=== PATIENT | female | born 1945 | race African-American/Black ===

== ENCOUNTER 2017-01-21 15:00 | Inpatient (IN) | payer MEDICARE ==
[2017-01-21] VITALS (9 sets, daily range): BP systolic 118–137; BP diastolic 62–73
[~2017-01-21] VITALS: Ht 167.6 cm; Wt 69.5 kg
[~2017-01-21 15:00] MED LIST: AMLO10TA4 PO; BIOT10TA PO; MULT-245 PO; OXYC-323 PO; PROAIR RESPICL90 MCG IH; VIT1TABL2 PO
[2017-01-21 15:37] LABS: BASO % 1 % (0-3); EOS % 1 % (0-3); LYMPH # 1.9 x10^3/uL (1.0-4.8); LYMPH % 33 % (24-48); MEAN CORPUSCULAR HEMOGLOBIN 32 pg (25-35); MEAN CORPUSCULAR HGB CONC 33 g/dL (31-37); MEAN CORPUSCULAR VOLUME 99 fL (79-100); MONO % 6 % (0-9); NEUT % 60 % (31-73); PLATELET COUNT 333 x10^3/uL (140-400); RED CELL DISTRIBUTION WIDTH 18.9 % (11.5-14.5); WHITE BLOOD COUNT 5.8 x10^3/uL (4.0-11.0)
[2017-01-21 15:40] LABS: HEMATOCRIT 17.9 % (36.0-47.0); HEMOGLOBIN 5.8 g/dL (12.0-15.5)
[2017-01-21 15:45] LABS: PROTHROMBIN TIME PATIENT 12.7 SEC (11.7-14.0)
[2017-01-21 15:47] LABS: CREATININE 0.9 mg/dL (0.6-1.0); GFR 74.7
[2017-01-21 15:52] LABS: ALBUMIN 3.1 g/dL (3.4-5.0); ALBUMIN/GLOBULIN RATIO 1.1 (1.0-1.7); MAGNESIUM 1.9 mg/dL (1.8-2.4); TOTAL BILIRUBIN 0.2 mg/dL (0.2-1.0)
[2017-01-21 16:00] LABS: CKMB MASS < 0.5 ng/mL (0.0-3.6); CREATINE KINASE 58 U/L (26-192)
--- NOTE | 2017-01-21 16:01 | PHYS DOC ---
Past Medical History Past Medical History: COPD, Hypertension, Other Additional Past Medical Histor: Brain aneurysm Past Surgical History: Other Additional Past Surgical Histo: intestinal polyp,Brain aneurysm Additional Information: 50 YEAR SMOKER, QUIT OCT 2016 Alcohol Use: None Drug Use: None Adult General Chief Complaint Chief Complaint: SHORTNESS OF BREATH HPI HPI Patient is a 71 year old female with a history of COPD who presents complaining of worsening shortness of breath for about 3-4 weeks. Today "I can' t even walk across the room".. Patient has to stop to catch her breath. Sometimes it wakes her up at night short of breath. Patient denies chest pain but she states her chest feels like a tight rubber band is around it when she gets short of air. She does not have chest pain without shortness of air. She denies diaphoresis. Patient states that since at least she has been having dark black stools. Her stools have been just about one a day. She's never had red or maroon stools, only black. She has no history of GI bleed. She has not vomited. She's never had black stools before. Patient does take Plavix 75 mg and aspirin 325 mg every day. She took both this morning. She has been taking those since she had "aneurysm surgery" at in September. She describes a procedure where they went in through her groin and did some procedure to an aneurysm in her brain that she states was the size of a plum. She states it was not ruptured. Patient has no history of CVA or cardiac history. She also takes Norvasc 10 mg daily for hypertension. Patient has had colonoscopy and she believe she had polyps but no upper endoscopy. She took prednisone for about a month after her aneurysm procedure, has been to that for maybe a couple of months now. Pt has not been on oxygen. She does use an inhaler for COPD and she has taken that about 3 or 4 times today. It is not really helping. PCP Dr. Lemus Review of Systems Review of Systems Constitutional: Denies fever or chills [] HENT: Denies nasal congestion or sore throat [] Respiratory: As in history of present illness Cardiovascular: As in history of present illness GI: As in history of present illness : Denies dysuria or hematuria [] Musculoskeletal: Denies back pain or joint pain [] Integument: Denies rash or skin lesions [] Neurologic: Denies headache, focal weakness or sensory changes [] Current Medications Current Medications Current Medications Medications (Trade) Dose Ordered Sig/Ana Start Time Stop Time Status Last Admin Dose Admin Pantoprazole Sodium (PROTONIX VIAL for IV PUSH) 40 mg 1X ONCE 01/21/17 16:15 01/21/17 16:16 DC 01/21/17 16:18 40 MG Allergies Allergies Allergies Coded Allergies Type Severity Reaction Last Updated Verified YVONNE Inhibitors Allergy Severe angioedema "my tongue swells" 01/21/16 Yes doxycycline Allergy Intermediate n/v 01/21/16 Yes sulfamethoxazole Allergy Intermediate n/v 01/21/16 Yes trimethoprim Allergy Intermediate n/v 01/21/16 Yes Physical Exam Physical Exam Constitutional: Well developed, well nourished, no acute distress, non-toxic appearance. Alert, mentating normally, warm and dry. Pulse ox on room air 97-99% . Noted. HENT: Normocephalic, atraumatic, bilateral external ears normal, nose normal. [ ] Eyes: conjunctivae very pale, no discharge. [] Neck: Normal range of motion, no stridor. [] Cardiovascular:Heart rate regular rhythm, no murmur [] Lungs & Thorax: Bilateral breath sounds clear to auscultation , no wheezes, mildly prolonged expiratory phase, mild to moderate decrease in breath sounds throughout Abdomen: Bowel sounds normal, soft, no tenderness, no masses, no pulsatile masses. [] Rectal exam: Small amount of black stool present, no mass Skin: Warm, dry, no erythema, no rash. [] Extremities: No tenderness, no cyanosis, no clubbing, ROM intact, no edema. [] Neurologic: Alert and oriented X 3, normal motor function, no focal deficits noted. [] Current Patient Data Vital Signs Vital Signs Date Time Temp Pulse Resp B/P (MAP) Pulse Ox O2 Delivery O2 Flow Rate FiO2 01/21/17 16:19 77 20 124/77 (93) 98 Room Air 01/21/17 15:16 97.7 97.7 Lab Values Laboratory Tests Test 01/21/17 15:20 01/21/17 15:36 White Blood Count 5.8 x10^3/uL (4.0-11.0) Red Blood Count 1.80 x10^6/uL (3.50-5.40) L Hemoglobin 5.8 g/dL (12.0-15.5) *L Hematocrit 17.9 % (36.0-47.0) *L Mean Corpuscular Volume 99 fL (79-100) Mean Corpuscular Hemoglobin 32 pg (25-35) Mean Corpuscular Hemoglobin Concent 33 g/dL (31-37) Red Cell Distribution Width 18.9 % (11.5-14.5) H Platelet Count 333 x10^3/uL (140-400) Neutrophils (%) (Auto) 60 % (31-73) Lymphocytes (%) (Auto) 33 % (24-48) Monocytes (%) (Auto) 6 % (0-9) Eosinophils (%) (Auto) 1 % (0-3) Basophils (%) (Auto) 1 % (0-3) Neutrophils # (Auto) 3.5 x10^3uL (1.8-7.7) Lymphocytes # (Auto) 1.9 x10^3/uL (1.0-4.8) Monocytes # (Auto) 0.4 x10^3/uL (0.0-1.1) Eosinophils # (Auto) 0.1 x10^3/uL (0.0-0.7) Basophils # (Auto) 0.0 x10^3/uL (0.0-0.2) Prothrombin Time 12.7 SEC (11.7-14.0) Prothrombin Time INR 1.0 (0.8-1.1) PTT 27 SEC (24-38) Sodium Level 146 mmol/L (136-145) H Potassium Level 3.0 mmol/L (3.5-5.1) L Chloride Level 109 mmol/L (98-107) H Carbon Dioxide Level 27 mmol/L (21-32) Anion Gap 10 (6-14) Blood Urea Nitrogen 18 mg/dL (7-20) Creatinine 0.9 mg/dL (0.6-1.0) Estimated GFR (Cockcroft-Gault) 74.7 BUN/Creatinine Ratio 20 (6-20) Glucose Level 103 mg/dL (70-99) H Calcium Level 9.0 mg/dL (8.5-10.1) Magnesium Level 1.9 mg/dL (1.8-2.4) Total Bilirubin 0.2 mg/dL (0.2-1.0) Aspartate Amino Transferase (AST) 17 U/L (15-37) Alanine Aminotransferase (ALT) 22 U/L (14-59) Alkaline Phosphatase 65 U/L (46-116) Creatine Kinase 58 U/L (26-192) Creatine Kinase MB (Mass) < 0.5 ng/mL (0.0-3.6) Creatine Kinase MB Relative Index 0.9 % (0-4) Troponin I Quantitative < 0.017 ng/mL (0.000-0.055) [id number]-Type Natriuretic Peptide 149 pg/mL (0-124) H Total Protein 6.0 g/dL (6.4-8.2) L Albumin 3.1 g/dL (3.4-5.0) L Albumin/Globulin Ratio 1.1 (1.0-1.7) Stool Occult Blood Positive (NEG) Laboratory Tests 01/21/17 15:20 Laboratory Tests 01/21/17 15:20 EKG EKG 12-lead EKG read by me. Sinus rhythm. Heart rate 80. There are no acute ST or T wave changes indicative of ischemia or infarction. No STEMI. 1512[] Radiology/Procedures Radiology/Procedures [] Course & Med Decision Making Course & Med Decision Making Pertinent Labs and Imaging studies reviewed. (See chart for details) 71-year-old female presents with the complaint of shortness of air worsening for 3 or 4 weeks. On evaluation, she is very pale and has a black stool. I believe may be her symptoms are being caused by anemia. In fact, lab called with hemoglobin of 5.8. The patient is stable at this time but I do believe she has evidence of active GI bleeding and that she is having daily black stools. I consented the patient to blood transfusion. I discussed with the blood bank. We will give her 2 units of packed red blood cells. She has never had a blood transfusion before. Patient's potassium is a little low but will probably come up with blood transfusion, I did not specifically give her potassium. Discussed the case with Dr. Madden, cooperative education director for hospital medicine. She will admit the patient. She stated that she will write for a GI consult. I did start the patient on IV PPI. I wrote bridge orders. Critical care time 35 minutes including bedside evaluation and reevaluation, consent for and administration of blood transfusion in a critically anemic patient, evaluation of labs, documentation, writing orders, discussion of the case with Hospital specialist to his admitting and with the patient and her family. [] Dragon Disclaimer Dragon Disclaimer This electronic medical record was generated, in whole or in part, using a voice recognition dictation system. Departure Departure Impression: Primary Impression: GI bleed Additional Impression: Anemia Disposition: 09 ADMITTED INPATIENT Admitting Physician: Other Condition: STABLE Referrals: HA LEMUS MD (PCP) Problem Qualifiers MICHELLE HAZEL MD Jan 21, 2017 16:01
[2017-01-21 16:10] LABS: NEG OBC FOB NEG; POS OBC FOB POS
--- NOTE | 2017-01-21 16:12 | RAD ---
PORTABLE CHEST 1V Clinical Indication: soa Comparison: October 31, 2015 Technique: Frontal view of the chest is obtained. Findings: No focal consolidation, pleural effusion, or pneumothorax is seen. Cardiomediastinal silhouette remains within normal limits of size. Visualized osseous structures and overlying soft tissues demonstrate no acute interval change. IMPRESSION: No focal consolidation or acute radiographic finding seen.
[2017-01-21] MEDS ORDERED: PANTOPRAZOLE IV PUSH 40 MG VIAL. IVP ONE (16:15)
[2017-01-21] MEDS ORDERED: CLOP75TA PO (20:26)
[2017-01-21] MEDS ORDERED: ASPI325T8 PO (20:27)
[2017-01-21 21:03] LABS: HEMATOCRIT 20.3 % (36.0-47.0); HEMOGLOBIN 6.6 g/dL (12.0-15.5)
[2017-01-21] MEDS ORDERED: PROAIR HFA8.5 GM INH (22:44)
[2017-01-21] MEDS ORDERED: NON FORMULARY ITEM (Albuterol Sulfate (Proair Hfa Inhaler) 1 PUFF) INH PRN (23:15)
[2017-01-21 23:57] LABS: % SAT IRON 12 % (15-34); IRON,SERUM 29 ug/dL (50-170)
[2017-01-22] VITALS (7 sets, daily range): BP systolic 107–148; BP diastolic 55–86
--- NOTE | 2017-01-22 00:06 | HP ---
ADMIT DATE: 01/21/2017 CHIEF COMPLAINT: Shortness of breath. HISTORY OF PRESENT ILLNESS: The patient is a 71-year-old ex-smoker who presented to the Emergency Room with increased shortness of breath. She relates that this started about 3 weeks ago and got progressively worse. She had been taking increasing frequency of her rescue albuterol, which seemed to help her symptoms some. However, she in addition to being very short of breath complained of fatigue, having no energy and she had noticed dark stools over the past couple of weeks, dark brown to black even. Denies ever having any GI bleeds in the past. She is status post polyp resection about 11 years ago, has not had an endoscopy since. Of note, she had a cranial aneurysm coiled in September of this year and has been on aspirin and Plavix since with the hanson warning to never miss a day of her medication. In the Emergency Room, she was found with a hemoglobin of 5.8 and is now admitted for further treatment and workup. PAST MEDICAL HISTORY: COPD, hypertension, intracranial aneurysm, status post repair in September. FAMILY HISTORY: No other family members with brain aneurysms. No history of intestinal disorders including cancers. SOCIAL HISTORY: Lives with her . Quit smoking in October of this year after accumulating 50 pack-year history. Denies any alcohol or drug use. ALLERGIES: YVONNE INHIBITORS CAUSING ANGIOEDEMA, DOXYCYCLINE CAUSING NAUSEA, BACTRIM. MEDICATIONS: MAR reconciled with home medications. REVIEW OF SYSTEMS: Positive as per HPI. The patient specifically denies any nausea, abdominal pain, chest pain or palpitations. Rest of organ system review likewise is answered negatively. PHYSICAL EXAMINATION: VITAL SIGNS: Show a blood pressure of 118/62, heart rate of 76, respiratory rate at 20, she is afebrile. GENERAL: This is a well-nourished, well-developed 71-year-old woman, alert and oriented, in no acute distress. HEENT: Shows no scleral icterus. NECK: Supple. LUNGS: Clear. HEART: Has regular rate and rhythm. ABDOMEN: Has positive bowel sounds, soft, nontender, without any organomegaly or masses. EXTREMITIES: Show no edema. SKIN: Warm, soft and dry without any rash. LABORATORY DATA: CBC with a WBC of 5.8, hemoglobin 5.8, platelets of 333. Chemistries with a BUN and creatinine of 18 and 0.9, sodium 146, potassium 3.0. Troponin is negative. Albumin at 2.1. OB stool is positive. IMAGING: Chest x-ray: No focal consolidation. ASSESSMENT AND PLAN: The patient is a 71-year-old woman with chronic obstructive pulmonary disease presenting with shortness of breath most likely secondary to severe anemia. By her history of melena, source is more than likely her gastrointestinal tract. For tonight, I will transfuse her with packed red blood cell for symptomatic anemia. Gastroenterology consult will be obtained in the morning. Discussed with her that workup may be a little tricky given the requirement for ongoing aspirin and Plavix. We will try and contact her neurologist, Dr. Portillo, at in the morning to evaluate the strict necessity of dual anticoagulation in face of gastrointestinal bleed. We will obtain iron studies as well. Her MCV is actually rather on the large side, obtain B12 and folate as well. If need be, she can receive p.o. versus intravenous iron repletion. For her hypertension, home medications will be continued as she appears very well compensated at this time. Other home medications will continue as well. ERON BATISTA MD DR: STEPHON/nts JOB#: [id number] / [id number] HA Enciso MD
[2017-01-22 04:38] LABS: BASO % 1 % (0-3); EOS % 1 % (0-3); HEMATOCRIT 25.1 % (36.0-47.0); HEMOGLOBIN 8.1 g/dL (12.0-15.5); LYMPH # 1.5 x10^3/uL (1.0-4.8); LYMPH % 32 % (24-48); MEAN CORPUSCULAR HEMOGLOBIN 30 pg (25-35); MEAN CORPUSCULAR HGB CONC 32 g/dL (31-37); MEAN CORPUSCULAR VOLUME 94 fL (79-100); MONO % 7 % (0-9); NEUT % 59 % (31-73); PLATELET COUNT 286 x10^3/uL (140-400); RED BLOOD COUNT 2.67 x10^6/uL (3.50-5.40); RED CELL DISTRIBUTION WIDTH 18.1 % (11.5-14.5); WHITE BLOOD COUNT 4.8 x10^3/uL (4.0-11.0)
[2017-01-22 05:15] LABS: CALCIUM 7.9 mg/dL (8.5-10.1); CREATININE 0.7 mg/dL (0.6-1.0); GFR 99.8; POTASSIUM 3.1 mmol/L (3.5-5.1)
--- NOTE | 2017-01-22 06:23 | EKG ---
[facility] [address] [place] [address] Test Date: 2017-01-21 Test Time: 15:12:33 Pat Name: KAMLA BABCOCK Department: Room: Gender: F Director Regulatory Affairs: : 1945 Requested By: MICHELLE HAZEL Order Number: [id number] Reading MD: Measurements Intervals [place] Rate: 80 P: 74 UT: 184 QRS: 60 QRSD: 72 T: 62 QT: 384 QTc: 447 Interpretive Statements SINUS RHYTHM NORMAL ECG RI6.01 No previous ECG available for comparison
[2017-01-22] MEDS: ASPIRIN 325 MG TABLET PO SCH ×2 (09:00→12:25)
[2017-01-22] MEDS: CLOPIDOGREL BISULFATE 75 MG TABLET PO SCH ×2 (09:00→12:26)
[2017-01-22] MEDS: amLODIPine BESYLATE 10 MG TABLET PO SCH ×2 (09:00→12:26)
[2017-01-22 10:24] LABS: FOLATE 7.8 ng/ml (3.2-20.0)
[2017-01-22] MEDS ORDERED: guaiFENesin DM 200MG/20MG 10 ML SYRUP PO PRN (11:00)
--- NOTE | 2017-01-22 11:49 | PDOC2 ---
GI CONSULT Reason For Consult: Dark stools, GIB HPI: HPI: 71 y/o female who came to the ER w/ increasing SOA since around . Noted w/ GARY w/ Hgb 5.8, now improved to 8.1 s/p transfusion (2 units pRBCs). For comparison, Hgb was 12-13 range in 10/2015. BUN is WNL (12). Has noted dark stools (says formed, once daily, but also "sticky") x 1 week. H/o cranial aneurysm s/p coiling in 09/2016, has been on ASA and Plavix since. Occasional NSAID use. No previous EGD. H/o colon resection for polyps x 15 years ago, no colonoscopy since. Mentions h/o diverticulosis. FH of pancreatic cancer; Dr. Caceres has seen previously for dilated pancreatic duct w/ borderline CBD and she has also undergone workup @ [facility] for same. Note normal CA19-9 in 2012. No h/ o anemia. No n/v, reflux/heartburn, dysphagia, abd pain, weight loss or change in appetite , diarrhea, or constipation. On IV PPI. PMH: PMH: HTN, COPD, colon polyps, diverticulosis, anxiety, depression, cranial aneurysm coiling, excision of chest lipoma, colon resection FH: Family History: Cancer (sister - pancreatic) Social History: Smoke: Quit ALCOHOL: none Drugs: None ROS: GEN: Denies fevers, chills, sweats HEENT: Denies blurred vision, sore throat CV: Denies chest pain RESP: +SOA GI: Per HPI : Denies hematuria, dysuria ENDO: Denies weight changes NEURO: Denies confusion, dizziness MSK: Denies weakness, joint pain/swelling SKIN: Denies jaundice, pruritus Vitals: Vitals: Vital Signs Date Time Temp Pulse Resp B/P (MAP) Pulse Ox O2 Delivery O2 Flow Rate FiO2 01/22/17 07:00 98.3 74 18 133/77 (95) 100 Room Air 98.3 01/21/17 20:11 2.0 Labs: Labs: Laboratory Tests Test 01/21/17 15:20 01/21/17 15:36 01/21/17 20:35 01/22/17 04:00 White Blood Count 5.8 x10^3/uL (4.0-11.0) 4.8 x10^3/uL (4.0-11.0) Red Blood Count 1.80 x10^6/uL (3.50-5.40) 2.67 x10^6/uL (3.50-5.40) Hemoglobin 5.8 g/dL (12.0-15.5) 6.6 g/dL (12.0-15.5) 8.1 g/dL (12.0-15.5) Hematocrit 17.9 % (36.0-47.0) 20.3 % (36.0-47.0) 25.1 % (36.0-47.0) Mean Corpuscular Volume 99 fL (79-100) 94 fL (79-100) Mean Corpuscular Hemoglobin 32 pg (25-35) 30 pg (25-35) Mean Corpuscular Hemoglobin Concent 33 g/dL (31-37) 32 g/dL (31-37) 32 g/dL (31-37) Red Cell Distribution Width 18.9 % (11.5-14.5) 18.1 % (11.5-14.5) Platelet Count 333 x10^3/uL (140-400) 286 x10^3/uL (140-400) Neutrophils (%) (Auto) 60 % (31-73) 59 % (31-73) Lymphocytes (%) (Auto) 33 % (24-48) 32 % (24-48) Monocytes (%) (Auto) 6 % (0-9) 7 % (0-9) Eosinophils (%) (Auto) 1 % (0-3) 1 % (0-3) Basophils (%) (Auto) 1 % (0-3) 1 % (0-3) Neutrophils # (Auto) 3.5 x10^3uL (1.8-7.7) 2.8 x10^3uL (1.8-7.7) Lymphocytes # (Auto) 1.9 x10^3/uL (1.0-4.8) 1.5 x10^3/uL (1.0-4.8) Monocytes # (Auto) 0.4 x10^3/uL (0.0-1.1) 0.3 x10^3/uL (0.0-1.1) Eosinophils # (Auto) 0.1 x10^3/uL (0.0-0.7) 0.1 x10^3/uL (0.0-0.7) Basophils # (Auto) 0.0 x10^3/uL (0.0-0.2) 0.0 x10^3/uL (0.0-0.2) Prothrombin Time 12.7 SEC (11.7-14.0) Prothromb Time International Ratio 1.0 (0.8-1.1) Activated Partial Thromboplast Time 27 SEC (24-38) Sodium Level 146 mmol/L (136-145) 144 mmol/L (136-145) Potassium Level 3.0 mmol/L (3.5-5.1) 3.1 mmol/L (3.5-5.1) Chloride Level 109 mmol/L (98-107) 110 mmol/L (98-107) Carbon Dioxide Level 27 mmol/L (21-32) 27 mmol/L (21-32) Anion Gap 10 (6-14) 7 (6-14) Blood Urea Nitrogen 18 mg/dL (7-20) 12 mg/dL (7-20) Creatinine 0.9 mg/dL (0.6-1.0) 0.7 mg/dL (0.6-1.0) Estimated GFR (Cockcroft-Gault) 74.7 99.8 BUN/Creatinine Ratio 20 (6-20) Glucose Level 103 mg/dL (70-99) 95 mg/dL (70-99) Calcium Level 9.0 mg/dL (8.5-10.1) 7.9 mg/dL (8.5-10.1) Magnesium Level 1.9 mg/dL (1.8-2.4) Iron Level 29 ug/dL (50-170) Total Iron Binding Capacity 251 ug/dL (250-450) Iron Saturation 12 % (15-34) Ferritin 25 ng/mL (8-252) Total Bilirubin 0.2 mg/dL (0.2-1.0) Aspartate Amino Transf (AST/SGOT) 17 U/L (15-37) Alanine Aminotransferase (ALT/SGPT) 22 U/L (14-59) Alkaline Phosphatase 65 U/L (46-116) Creatine Kinase 58 U/L (26-192) Creatine Kinase MB (Mass) < 0.5 ng/mL (0.0-3.6) Creatine Kinase MB Relative Index 0.9 % (0-4) Troponin I Quantitative < 0.017 ng/mL (0.000-0.055) [id number]-Type Natriuretic Peptide 149 pg/mL (0-124) Total Protein 6.0 g/dL (6.4-8.2) Albumin 3.1 g/dL (3.4-5.0) Albumin/Globulin Ratio 1.1 (1.0-1.7) Vitamin B12 Level 357 pg/mL (247-911) Serum Folate 7.80 ng/ml (3.2-20.0) Stool Occult Blood Positive (NEG) Allergies: Coded Allergies: YVONNE Inhibitors (Verified Allergy, Severe, angioedema "my tongue swells", 01/21/16) doxycycline (Verified Allergy, Intermediate, n/v, 01/21/16) sulfamethoxazole (Verified Allergy, Intermediate, n/v, 01/21/16) trimethoprim (Verified Allergy, Intermediate, n/v, 01/21/16) Medications: Current Medications Medications (Trade) Dose Ordered Sig/Ana Route PRN Reason Start Time Stop Time Status Last Admin Dose Admin Pantoprazole Sodium (PROTONIX VIAL for IV PUSH) 40 mg 1X ONCE IVP 01/21/17 16:15 01/21/17 16:16 DC 01/21/17 16:18 Imaging: Imaging: CXR IMPRESSION: No focal consolidation or acute radiographic finding seen. PE: GEN: NAD, quite pleasant HEENT: Atraumatic, PERRL LUNGS: CTAB HEART: RRR ABD: NABS, S/ND/NT EXTREMITY: No edema SKIN: No rashes, no jaundice NEURO/PSYCH: A & O 3 A/P: A/P: GARY, hemoccult positive/dark stools -Hgb 5.8 to 8.1 s/p transfusion -B12 and folate WNL -no previous EGD S/p aneurysm coiling on Plavix and ASA SOA CRC screen, h/o polyps s/p colon resection -no colonoscopy x 15 years FH pancreatic cancer -previous workup @ [facility] for abnormal imaging, normal CA19-9 here in 2012 -- D/w Dr. Caceres - with stable vitals and normal BUN, okay for PO today, plan for EGD tomorrow r/o upper GI source of anemia. Also needs colonoscopy, could be done as outpt. Continue PPI. SAKINA ORTIZ Jan 22, 2017 11:49
[2017-01-22] MEDS: PANTOPRAZOLE IV PUSH 40 MG VIAL. IVP SCH (12:28)
--- NOTE | 2017-01-22 13:35 | PDOC ---
PROGRESS NOTES Chief Complaint Chief Complaint Melena Asthma exacerbation resolved Anemia of chronic disease Never smoker hypokalemia Positive stool occult History of intracranial aneurysm October 08 on aspirin and Plavix osteoarthritis on as needed NSAIDs History of Present Illness History of Present Illness Doing okay. Melena was noted So I consulted GI. GI has seen the patient and spent for EGD tomorrow. Patient is on aspirin and Plavix is September 2016 after having history of intracranial coils done by neurosurgeon or neuro IR in . Hemodynamically stable hemoglobin 8 Plan of care: Nothing by mouth post midnight for EGD tomorrow H&H tomorrow Start PPI Hold aspirin and NSAIDs for now discussed with her by plan of care increase. Vitals Vitals Vital Signs Date Time Temp Pulse Resp B/P (MAP) Pulse Ox O2 Delivery O2 Flow Rate FiO2 01/22/17 12:26 96 Room Air 01/22/17 12: 78 144/83 01/22/17 11:00 98.4 18 98.4 01/21/17 20:11 2.0 Physical Exam General: Alert, Oriented X3, Cooperative Heart: Regular rate, Normal S1, Normal S2 Lungs: Clear Abdomen: Normal bowel sounds, Soft Extremities: No clubbing, No cyanosis Skin: No rashes, No breakdown Labs LABS Laboratory Tests Test 01/21/17 15:20 01/21/17 15:36 01/21/17 20:35 01/22/17 04:00 White Blood Count 5.8 x10^3/uL (4.0-11.0) 4.8 x10^3/uL (4.0-11.0) Red Blood Count 1.80 x10^6/uL (3.50-5.40) 2.67 x10^6/uL (3.50-5.40) Hemoglobin 5.8 g/dL (12.0-15.5) 6.6 g/dL (12.0-15.5) 8.1 g/dL (12.0-15.5) Hematocrit 17.9 % (36.0-47.0) 20.3 % (36.0-47.0) 25.1 % (36.0-47.0) Mean Corpuscular Volume 99 fL (79-100) 94 fL (79-100) Mean Corpuscular Hemoglobin 32 pg (25-35) 30 pg (25-35) Mean Corpuscular Hemoglobin Concent 33 g/dL (31-37) 32 g/dL (31-37) 32 g/dL (31-37) Red Cell Distribution Width 18.9 % (11.5-14.5) 18.1 % (11.5-14.5) Platelet Count 333 x10^3/uL (140-400) 286 x10^3/uL (140-400) Neutrophils (%) (Auto) 60 % (31-73) 59 % (31-73) Lymphocytes (%) (Auto) 33 % (24-48) 32 % (24-48) Monocytes (%) (Auto) 6 % (0-9) 7 % (0-9) Eosinophils (%) (Auto) 1 % (0-3) 1 % (0-3) Basophils (%) (Auto) 1 % (0-3) 1 % (0-3) Neutrophils # (Auto) 3.5 x10^3uL (1.8-7.7) 2.8 x10^3uL (1.8-7.7) Lymphocytes # (Auto) 1.9 x10^3/uL (1.0-4.8) 1.5 x10^3/uL (1.0-4.8) Monocytes # (Auto) 0.4 x10^3/uL (0.0-1.1) 0.3 x10^3/uL (0.0-1.1) Eosinophils # (Auto) 0.1 x10^3/uL (0.0-0.7) 0.1 x10^3/uL (0.0-0.7) Basophils # (Auto) 0.0 x10^3/uL (0.0-0.2) 0.0 x10^3/uL (0.0-0.2) Prothrombin Time 12.7 SEC (11.7-14.0) Prothromb Time International Ratio 1.0 (0.8-1.1) Activated Partial Thromboplast Time 27 SEC (24-38) Sodium Level 146 mmol/L (136-145) 144 mmol/L (136-145) Potassium Level 3.0 mmol/L (3.5-5.1) 3.1 mmol/L (3.5-5.1) Chloride Level 109 mmol/L (98-107) 110 mmol/L (98-107) Carbon Dioxide Level 27 mmol/L (21-32) 27 mmol/L (21-32) Anion Gap 10 (6-14) 7 (6-14) Blood Urea Nitrogen 18 mg/dL (7-20) 12 mg/dL (7-20) Creatinine 0.9 mg/dL (0.6-1.0) 0.7 mg/dL (0.6-1.0) Estimated GFR (Cockcroft-Gault) 74.7 99.8 BUN/Creatinine Ratio 20 (6-20) Glucose Level 103 mg/dL (70-99) 95 mg/dL (70-99) Calcium Level 9.0 mg/dL (8.5-10.1) 7.9 mg/dL (8.5-10.1) Magnesium Level 1.9 mg/dL (1.8-2.4) Iron Level 29 ug/dL (50-170) Total Iron Binding Capacity 251 ug/dL (250-450) Iron Saturation 12 % (15-34) Ferritin 25 ng/mL (8-252) Total Bilirubin 0.2 mg/dL (0.2-1.0) Aspartate Amino Transf (AST/SGOT) 17 U/L (15-37) Alanine Aminotransferase (ALT/SGPT) 22 U/L (14-59) Alkaline Phosphatase 65 U/L (46-116) Creatine Kinase 58 U/L (26-192) Creatine Kinase MB (Mass) < 0.5 ng/mL (0.0-3.6) Creatine Kinase MB Relative Index 0.9 % (0-4) Troponin I Quantitative < 0.017 ng/mL (0.000-0.055) CL-Has-C-Type Natriuretic Peptide 149 pg/mL (0-124) Total Protein 6.0 g/dL (6.4-8.2) Albumin 3.1 g/dL (3.4-5.0) Albumin/Globulin Ratio 1.1 (1.0-1.7) Vitamin B12 Level 357 pg/mL (247-911) Serum Folate 7.80 ng/ml (3.2-20.0) Stool Occult Blood Positive (NEG) Review of Systems Review of Systems A 14 point ROS was completed with the following noted as positive: Other systems reviewed and negative. \CONSTITUTIONAL: No fever or chills EYES: No recent changes SKIN: No rash or itching CARDIOVASCULAR: No chest pain, syncope, palpitations, or edema RESPIRATORY: No SOB or cough GASTROINTESTINAL: No nausea, vomiting or abdominal pain NEUROLOGICAL: No headaches or weakness ENDOCRINE: No cold or heat intolerance GENITOURINARY: No urgency or frequency of urination MUSCULOSKELETAL: No back pain or joint pain LYMPHATICS: No enlarged lymph nodes PSYCHIATRIC: No anxiety or depression Assessment and Plan Assessmemt and Plan Problems Medical Problems: (1) Anemia Status: Acute (2) GI bleed Status: Acute Problems: Comment Review of Relevant I have reviewed the following items frieda (where applicable) has been applied. Labs Laboratory Tests Test 01/21/17 15:20 01/21/17 15:36 01/21/17 20:35 01/22/17 04:00 White Blood Count 5.8 x10^3/uL (4.0-11.0) 4.8 x10^3/uL (4.0-11.0) Red Blood Count 1.80 x10^6/uL (3.50-5.40) 2.67 x10^6/uL (3.50-5.40) Hemoglobin 5.8 g/dL (12.0-15.5) 6.6 g/dL (12.0-15.5) 8.1 g/dL (12.0-15.5) Hematocrit 17.9 % (36.0-47.0) 20.3 % (36.0-47.0) 25.1 % (36.0-47.0) Mean Corpuscular Volume 99 fL (79-100) 94 fL (79-100) Mean Corpuscular Hemoglobin 32 pg (25-35) 30 pg (25-35) Mean Corpuscular Hemoglobin Concent 33 g/dL (31-37) 32 g/dL (31-37) 32 g/dL (31-37) Red Cell Distribution Width 18.9 % (11.5-14.5) 18.1 % (11.5-14.5) Platelet Count 333 x10^3/uL (140-400) 286 x10^3/uL (140-400) Neutrophils (%) (Auto) 60 % (31-73) 59 % (31-73) Lymphocytes (%) (Auto) 33 % (24-48) 32 % (24-48) Monocytes (%) (Auto) 6 % (0-9) 7 % (0-9) Eosinophils (%) (Auto) 1 % (0-3) 1 % (0-3) Basophils (%) (Auto) 1 % (0-3) 1 % (0-3) Neutrophils # (Auto) 3.5 x10^3uL (1.8-7.7) 2.8 x10^3uL (1.8-7.7) Lymphocytes # (Auto) 1.9 x10^3/uL (1.0-4.8) 1.5 x10^3/uL (1.0-4.8) Monocytes # (Auto) 0.4 x10^3/uL (0.0-1.1) 0.3 x10^3/uL (0.0-1.1) Eosinophils # (Auto) 0.1 x10^3/uL (0.0-0.7) 0.1 x10^3/uL (0.0-0.7) Basophils # (Auto) 0.0 x10^3/uL (0.0-0.2) 0.0 x10^3/uL (0.0-0.2) Prothrombin Time 12.7 SEC (11.7-14.0) Prothromb Time International Ratio 1.0 (0.8-1.1) Activated Partial Thromboplast Time 27 SEC (24-38) Sodium Level 146 mmol/L (136-145) 144 mmol/L (136-145) Potassium Level 3.0 mmol/L (3.5-5.1) 3.1 mmol/L (3.5-5.1) Chloride Level 109 mmol/L (98-107) 110 mmol/L (98-107) Carbon Dioxide Level 27 mmol/L (21-32) 27 mmol/L (21-32) Anion Gap 10 (6-14) 7 (6-14) Blood Urea Nitrogen 18 mg/dL (7-20) 12 mg/dL (7-20) Creatinine 0.9 mg/dL (0.6-1.0) 0.7 mg/dL (0.6-1.0) Estimated GFR (Cockcroft-Gault) 74.7 99.8 BUN/Creatinine Ratio 20 (6-20) Glucose Level 103 mg/dL (70-99) 95 mg/dL (70-99) Calcium Level 9.0 mg/dL (8.5-10.1) 7.9 mg/dL (8.5-10.1) Magnesium Level 1.9 mg/dL (1.8-2.4) Iron Level 29 ug/dL (50-170) Total Iron Binding Capacity 251 ug/dL (250-450) Iron Saturation 12 % (15-34) Ferritin 25 ng/mL (8-252) Total Bilirubin 0.2 mg/dL (0.2-1.0) Aspartate Amino Transf (AST/SGOT) 17 U/L (15-37) Alanine Aminotransferase (ALT/SGPT) 22 U/L (14-59) Alkaline Phosphatase 65 U/L (46-116) Creatine Kinase 58 U/L (26-192) Creatine Kinase MB (Mass) < 0.5 ng/mL (0.0-3.6) Creatine Kinase MB Relative Index 0.9 % (0-4) Troponin I Quantitative < 0.017 ng/mL (0.000-0.055) IA-Gkg-U-Type Natriuretic Peptide 149 pg/mL (0-124) Total Protein 6.0 g/dL (6.4-8.2) Albumin 3.1 g/dL (3.4-5.0) Albumin/Globulin Ratio 1.1 (1.0-1.7) Vitamin B12 Level 357 pg/mL (247-911) Serum Folate 7.80 ng/ml (3.2-20.0) Stool Occult Blood Positive (NEG) Laboratory Tests Test 01/21/17 15:20 01/21/17 15:36 01/21/17 20:35 01/22/17 04:00 White Blood Count 5.8 x10^3/uL (4.0-11.0) 4.8 x10^3/uL (4.0-11.0) Red Blood Count 1.80 x10^6/uL (3.50-5.40) 2.67 x10^6/uL (3.50-5.40) Hemoglobin 5.8 g/dL (12.0-15.5) 6.6 g/dL (12.0-15.5) 8.1 g/dL (12.0-15.5) Hematocrit 17.9 % (36.0-47.0) 20.3 % (36.0-47.0) 25.1 % (36.0-47.0) Mean Corpuscular Volume 99 fL (79-100) 94 fL (79-100) Mean Corpuscular Hemoglobin 32 pg (25-35) 30 pg (25-35) Mean Corpuscular Hemoglobin Concent 33 g/dL (31-37) 32 g/dL (31-37) 32 g/dL (31-37) Red Cell Distribution Width 18.9 % (11.5-14.5) 18.1 % (11.5-14.5) Platelet Count 333 x10^3/uL (140-400) 286 x10^3/uL (140-400) Neutrophils (%) (Auto) 60 % (31-73) 59 % (31-73) Lymphocytes (%) (Auto) 33 % (24-48) 32 % (24-48) Monocytes (%) (Auto) 6 % (0-9) 7 % (0-9) Eosinophils (%) (Auto) 1 % (0-3) 1 % (0-3) Basophils (%) (Auto) 1 % (0-3) 1 % (0-3) Neutrophils # (Auto) 3.5 x10^3uL (1.8-7.7) 2.8 x10^3uL (1.8-7.7) Lymphocytes # (Auto) 1.9 x10^3/uL (1.0-4.8) 1.5 x10^3/uL (1.0-4.8) Monocytes # (Auto) 0.4 x10^3/uL (0.0-1.1) 0.3 x10^3/uL (0.0-1.1) Eosinophils # (Auto) 0.1 x10^3/uL (0.0-0.7) 0.1 x10^3/uL (0.0-0.7) Basophils # (Auto) 0.0 x10^3/uL (0.0-0.2) 0.0 x10^3/uL (0.0-0.2) Prothrombin Time 12.7 SEC (11.7-14.0) Prothromb Time International Ratio 1.0 (0.8-1.1) Activated Partial Thromboplast Time 27 SEC (24-38) Sodium Level 146 mmol/L (136-145) 144 mmol/L (136-145) Potassium Level 3.0 mmol/L (3.5-5.1) 3.1 mmol/L (3.5-5.1) Chloride Level 109 mmol/L (98-107) 110 mmol/L (98-107) Carbon Dioxide Level 27 mmol/L (21-32) 27 mmol/L (21-32) Anion Gap 10 (6-14) 7 (6-14) Blood Urea Nitrogen 18 mg/dL (7-20) 12 mg/dL (7-20) Creatinine 0.9 mg/dL (0.6-1.0) 0.7 mg/dL (0.6-1.0) Estimated GFR (Cockcroft-Gault) 74.7 99.8 BUN/Creatinine Ratio 20 (6-20) Glucose Level 103 mg/dL (70-99) 95 mg/dL (70-99) Calcium Level 9.0 mg/dL (8.5-10.1) 7.9 mg/dL (8.5-10.1) Magnesium Level 1.9 mg/dL (1.8-2.4) Iron Level 29 ug/dL (50-170) Total Iron Binding Capacity 251 ug/dL (250-450) Iron Saturation 12 % (15-34) Ferritin 25 ng/mL (8-252) Total Bilirubin 0.2 mg/dL (0.2-1.0) Aspartate Amino Transf (AST/SGOT) 17 U/L (15-37) Alanine Aminotransferase (ALT/SGPT) 22 U/L (14-59) Alkaline Phosphatase 65 U/L (46-116) Creatine Kinase 58 U/L (26-192) Creatine Kinase MB (Mass) < 0.5 ng/mL (0.0-3.6) Creatine Kinase MB Relative Index 0.9 % (0-4) Troponin I Quantitative < 0.017 ng/mL (0.000-0.055) UW-Rru-W-Type Natriuretic Peptide 149 pg/mL (0-124) Total Protein 6.0 g/dL (6.4-8.2) Albumin 3.1 g/dL (3.4-5.0) Albumin/Globulin Ratio 1.1 (1.0-1.7) Vitamin B12 Level 357 pg/mL (247-911) Serum Folate 7.80 ng/ml (3.2-20.0) Stool Occult Blood Positive (NEG) Medications Current Medications Pantoprazole Sodium (PROTONIX VIAL for IV PUSH) 40 mg 1X ONCE IVP Last administered on 01/21/17 16:18; Start 01/21/17 at 16:15; Stop 01/21/17 at 16:16 ; Status DC Amlodipine Besylate (Norvasc) 10 mg DAILY PO Last administered on 01/22/17 12: 26; Start 01/22/17 at 09:00 Aspirin (Brown Aspirin) 325 mg DAILY PO Last administered on 01/22/17 12:25; Start 01/22/17 at 09:00 Clopidogrel Bisulfate (Plavix) 75 mg DAILY PO Last administered on 01/22/17 12 :26; Start 01/22/17 at 09:00 Non-Formulary Medication 1 puff PRN Q6HRS PRN INH SHORTNESS OF BREATH; Start 01/21/17 at 23:15; Status UNV Albuterol Sulfate (Ventolin Neb Soln) 2.5 mg PRN Q6HRS PRN NEB SHORTNESS OF BREATH; Start 01/21/17 at 23:30 Guaifenesin (Robitussin Dm) 10 ml PRN Q6HRS PRN PO COUGH; Start 01/22/17 at 11: 00 Pantoprazole Sodium (PROTONIX VIAL for IV PUSH) 40 mg DAILYAC IVP Last administered on 01/22/17 12:28; Start 01/22/17 at 12:00 Active Scripts Active Reported Proair Hfa Inhaler (Albuterol Sulfate) 8.5 Gm Hfa.aer.ad 1 Puff INH PRN Q6HRS PRN Aspirin 325 Mg Tablet 325 Tab PO DAILY Clopidogrel (Clopidogrel Bisulfate) 75 Mg Tablet 1 Tab PO DAILY Norvasc (Amlodipine Besylate) 10 Mg Tablet 10 Mg PO DAILY Vitals/I & O Vital Sign - Last 24 Hours 01/21/17 01/21/17 01/21/17 01/21/17 15:16 15:30 16:19 17:29 Temp 97.7 96.6 97.7 96.6 Pulse 85 78 77 81 Resp 22 20 22 B/P (MAP) 122/71 (88) 121/71 (88) 124/77 (93) 137/63 Pulse Ox 98 98 98 O2 Delivery Room Air Room Air Room Air 01/21/17 01/21/17 01/21/17 01/21/17 17:30 17:45 18:45 19:00 Temp 97.4 96.8 97.7 97.4 96.8 97.7 Pulse 80 88 77 Resp 22 22 18 B/P (MAP) 130/64 120/68 121/66 (84) Pulse Ox 97 O2 Delivery Nasal Cannula Room Air O2 Flow Rate 2.0 01/21/17 01/21/17 01/21/17 01/21/17 19:45 20:11 22:25 22:49 Temp 97.7 97.9 97.9 97.7 97.9 97.9 Pulse 76 74 66 Resp 20 20 20 B/P (MAP) 118/62 128/65 127/73 O2 Delivery Nasal Cannula O2 Flow Rate 2.0 01/21/17 01/21/17 01/22/17 01/22/17 23:00 23:55 00:55 03:00 Temp 98.1 97.9 97.9 98.6 98.1 97.9 97.9 98.6 Pulse 70 69 70 Resp 18 20 20 18 B/P (MAP) 130/71 (90) 122/66 122/64 148/86 (106) Pulse Ox 100 98 O2 Delivery Room Air 01/22/17 01/22/17 01/22/17 01/22/17 07:00 07:45 11:00 12:26 Temp 98.3 98.4 98.3 98.4 Pulse 74 78 78 Resp 18 18 B/P (MAP) 133/77 (95) 144/83 (103) 144/83 Pulse Ox 100 99 O2 Delivery Room Air Room Air Room Air 01/22/17 12:26 Pulse Ox 96 O2 Delivery Room Air Intake and Output 01/21/17 01/21/17 01/22/17 15:00 23:00 07:00 Intake Total 300 ml 200 ml Balance 300 ml 200 ml VISHAL MCGINNIS MD 4, 2017 13:34
[2017-01-22] MEDS: ALBUTEROL SULFATE 2.5 MG/3 ML NEBU. NEB PRN (16:12)
[2017-01-23] VITALS (8 sets, daily range): BP systolic 100–162; BP diastolic 64–77
[2017-01-23 05:32] LABS: HEMATOCRIT 27.7 % (36.0-47.0); HEMOGLOBIN 8.7 g/dL (12.0-15.5)
[2017-01-23] MEDS ORDERED: PROCHLORPERAZINE 10 MG/2 ML VIAL. IV PRN (07:00)
[2017-01-23] MEDS ORDERED: IV RINGERS,LACTATED 1000ML 1,000 ML IV SCH (07:00)
[2017-01-23] MEDS ORDERED: ONDANSETRON PF 4 MG/2 ML VIAL. IV PRN (07:00)
[2017-01-23] MEDS ORDERED: fentaNYL PF VIAL 100 MCG/2 ML VIAL IV PRN ×2 (07:00)
[2017-01-23] MEDS ORDERED: MORPHINE SULFATE 2 MG/ML DISP.SYRIN. IV PRN (07:00)
[2017-01-23] MEDS ORDERED: HYDROmorphone 2 MG/ML VIAL IV PRN (07:00)
[2017-01-23] MEDS ORDERED: LIDOCAINE 1% PF 2 ML VIAL. ID PRN (07:00)
[2017-01-23] MEDS: ASPIRIN 325 MG TABLET PO SCH (08:23)
[2017-01-23] MEDS: CLOPIDOGREL BISULFATE 75 MG TABLET PO SCH (08:23)
[2017-01-23] MEDS: amLODIPine BESYLATE 10 MG TABLET PO SCH (08:54)
[2017-01-23] MEDS: PANTOPRAZOLE IV PUSH 40 MG VIAL. IVP SCH (08:58)
--- NOTE | 2017-01-23 09:21 | PDOC ---
PROGRESS NOTES Chief Complaint Chief Complaint Melena Asthma exacerbation resolved Anemia of chronic disease Never smoker hypokalemia Positive stool occult History of intracranial aneurysm October 08 on aspirin and Plavix osteoarthritis on as needed NSAIDs History of Present Illness History of Present Illness Doing okay. Some small melena today Patient is on aspirin and Plavix is September 2016 after having history of intracranial coils done by neurosurgeon or neuro IR in [place]. Hemodynamically stable hemoglobin 8. 7 today Asthma seems to be stable Plan of care: EGD later No NSAIDS, ASA etc HH tmr Vitals Vitals Vital Signs Date Time Temp Pulse Resp B/P (MAP) Pulse Ox O2 Delivery O2 Flow Rate FiO2 01/23/17 08:54 70 162/66 01/23/17 07:00 98.1 18 100 Room Air 98.1 Physical Exam General: Alert, Oriented X3, Cooperative Heart: Regular rate, Normal S1, Normal S2 Lungs: Clear Abdomen: Normal bowel sounds, Soft Extremities: No clubbing, No cyanosis Skin: No rashes, No breakdown Labs LABS Laboratory Tests Test 01/23/17 05:00 Hemoglobin 8.7 g/dL (12.0-15.5) Hematocrit 27.7 % (36.0-47.0) Mean Corpuscular Hemoglobin Concent 31 g/dL (31-37) Review of Systems Review of Systems A 14 point ROS was completed with the following noted as positive: Other systems reviewed and negative. \CONSTITUTIONAL: No fever or chills EYES: No recent changes SKIN: No rash or itching CARDIOVASCULAR: No chest pain, syncope, palpitations, or edema RESPIRATORY: No SOB or cough GASTROINTESTINAL: No nausea, vomiting or abdominal pain NEUROLOGICAL: No headaches or weakness ENDOCRINE: No cold or heat intolerance GENITOURINARY: No urgency or frequency of urination MUSCULOSKELETAL: No back pain or joint pain LYMPHATICS: No enlarged lymph nodes PSYCHIATRIC: No anxiety or depression Assessment and Plan Assessmemt and Plan Problems Medical Problems: (1) Anemia Status: Acute (2) GI bleed Status: Acute Problems: Comment Review of Relevant I have reviewed the following items frieda (where applicable) has been applied. Labs Laboratory Tests Test 01/21/17 15:20 01/21/17 15:36 01/21/17 20:35 01/22/17 04:00 White Blood Count 5.8 x10^3/uL (4.0-11.0) 4.8 x10^3/uL (4.0-11.0) Red Blood Count 1.80 x10^6/uL (3.50-5.40) 2.67 x10^6/uL (3.50-5.40) Hemoglobin 5.8 g/dL (12.0-15.5) 6.6 g/dL (12.0-15.5) 8.1 g/dL (12.0-15.5) Hematocrit 17.9 % (36.0-47.0) 20.3 % (36.0-47.0) 25.1 % (36.0-47.0) Mean Corpuscular Volume 99 fL (79-100) 94 fL (79-100) Mean Corpuscular Hemoglobin 32 pg (25-35) 30 pg (25-35) Mean Corpuscular Hemoglobin Concent 33 g/dL (31-37) 32 g/dL (31-37) 32 g/dL (31-37) Red Cell Distribution Width 18.9 % (11.5-14.5) 18.1 % (11.5-14.5) Platelet Count 333 x10^3/uL (140-400) 286 x10^3/uL (140-400) Neutrophils (%) (Auto) 60 % (31-73) 59 % (31-73) Lymphocytes (%) (Auto) 33 % (24-48) 32 % (24-48) Monocytes (%) (Auto) 6 % (0-9) 7 % (0-9) Eosinophils (%) (Auto) 1 % (0-3) 1 % (0-3) Basophils (%) (Auto) 1 % (0-3) 1 % (0-3) Neutrophils # (Auto) 3.5 x10^3uL (1.8-7.7) 2.8 x10^3uL (1.8-7.7) Lymphocytes # (Auto) 1.9 x10^3/uL (1.0-4.8) 1.5 x10^3/uL (1.0-4.8) Monocytes # (Auto) 0.4 x10^3/uL (0.0-1.1) 0.3 x10^3/uL (0.0-1.1) Eosinophils # (Auto) 0.1 x10^3/uL (0.0-0.7) 0.1 x10^3/uL (0.0-0.7) Basophils # (Auto) 0.0 x10^3/uL (0.0-0.2) 0.0 x10^3/uL (0.0-0.2) Prothrombin Time 12.7 SEC (11.7-14.0) Prothromb Time International Ratio 1.0 (0.8-1.1) Activated Partial Thromboplast Time 27 SEC (24-38) Sodium Level 146 mmol/L (136-145) 144 mmol/L (136-145) Potassium Level 3.0 mmol/L (3.5-5.1) 3.1 mmol/L (3.5-5.1) Chloride Level 109 mmol/L (98-107) 110 mmol/L (98-107) Carbon Dioxide Level 27 mmol/L (21-32) 27 mmol/L (21-32) Anion Gap 10 (6-14) 7 (6-14) Blood Urea Nitrogen 18 mg/dL (7-20) 12 mg/dL (7-20) Creatinine 0.9 mg/dL (0.6-1.0) 0.7 mg/dL (0.6-1.0) Estimated GFR (Cockcroft-Gault) 74.7 99.8 BUN/Creatinine Ratio 20 (6-20) Glucose Level 103 mg/dL (70-99) 95 mg/dL (70-99) Calcium Level 9.0 mg/dL (8.5-10.1) 7.9 mg/dL (8.5-10.1) Magnesium Level 1.9 mg/dL (1.8-2.4) Iron Level 29 ug/dL (50-170) Total Iron Binding Capacity 251 ug/dL (250-450) Iron Saturation 12 % (15-34) Ferritin 25 ng/mL (8-252) Total Bilirubin 0.2 mg/dL (0.2-1.0) Aspartate Amino Transf (AST/SGOT) 17 U/L (15-37) Alanine Aminotransferase (ALT/SGPT) 22 U/L (14-59) Alkaline Phosphatase 65 U/L (46-116) Creatine Kinase 58 U/L (26-192) Creatine Kinase MB (Mass) < 0.5 ng/mL (0.0-3.6) Creatine Kinase MB Relative Index 0.9 % (0-4) Troponin I Quantitative < 0.017 ng/mL (0.000-0.055) GR-Vqb-W-Type Natriuretic Peptide 149 pg/mL (0-124) Total Protein 6.0 g/dL (6.4-8.2) Albumin 3.1 g/dL (3.4-5.0) Albumin/Globulin Ratio 1.1 (1.0-1.7) Vitamin B12 Level 357 pg/mL (247-911) Serum Folate 7.80 ng/ml (3.2-20.0) Stool Occult Blood Positive (NEG) Test 01/23/17 05:00 Hemoglobin 8.7 g/dL (12.0-15.5) Hematocrit 27.7 % (36.0-47.0) Mean Corpuscular Hemoglobin Concent 31 g/dL (31-37) Laboratory Tests Test 01/23/17 05:00 Hemoglobin 8.7 g/dL (12.0-15.5) Hematocrit 27.7 % (36.0-47.0) Mean Corpuscular Hemoglobin Concent 31 g/dL (31-37) Medications Current Medications Pantoprazole Sodium (PROTONIX VIAL for IV PUSH) 40 mg 1X ONCE IVP Last administered on 01/21/17 16:18; Start 01/21/17 at 16:15; Stop 01/21/17 at 16:16 ; Status DC Amlodipine Besylate (Norvasc) 10 mg DAILY PO Last administered on 01/23/17 08: 54; Start 01/22/17 at 09:00 Aspirin (Brown Aspirin) 325 mg DAILY PO Last administered on 01/22/17 12:25; Start 01/22/17 at 09:00 Clopidogrel Bisulfate (Plavix) 75 mg DAILY PO Last administered on 01/22/17 12 :26; Start 01/22/17 at 09:00 Non-Formulary Medication 1 puff PRN Q6HRS PRN INH SHORTNESS OF BREATH; Start 01/21/17 at 23:15; Status UNV Albuterol Sulfate (Ventolin Neb Soln) 2.5 mg PRN Q6HRS PRN NEB SHORTNESS OF BREATH Last administered on 01/22/17 16:12; Start 01/21/17 at 23:30 Guaifenesin (Robitussin Dm) 10 ml PRN Q6HRS PRN PO COUGH; Start 01/22/17 at 11: 00 Pantoprazole Sodium (PROTONIX VIAL for IV PUSH) 40 mg DAILYAC IVP Last administered on 01/23/17 08:58; Start 01/22/17 at 12:00 Ondansetron HCl (Zofran) 4 mg PRN Q6HRS PRN IV NAUSEA/VOMITING; Start 01/23/17 at 07:00; Stop 01/24/17 at 06:59 Fentanyl Citrate (Fentanyl 2ml Vial) 25 mcg PRN Q5MIN PRN IV MILD PAIN; Start 01/23/17 at 07:00; Stop 01/24/17 at 06:59 Fentanyl Citrate (Fentanyl 2ml Vial) 50 mcg PRN Q5MIN PRN IV MODERATE PAIN; Start 01/23/17 at 07:00; Stop 01/24/17 at 06:59 Morphine Sulfate 1 mg PRN Q10MIN PRN IV SEVERE PAIN; Start 01/23/17 at 07:00; Stop 01/24/17 at 06:59 Ringer's Solution 1,000 ml @ 0 mls/hr Q0M IV ; Start 01/23/17 at 07:00; Stop 01/23/17 at 18:59 Lidocaine HCl (Xylocaine-Mpf 1% Vial) 2 ml PRN 1X PRN ID PRIOR TO IV START; Start 01/23/17 at 07:00; Stop 01/24/17 at 06:59 Hydromorphone HCl (Dilaudid) 0.5 mg PRN Q10MIN PRN IV SEV PAIN, Second choice; Start 01/23/17 at 07:00; Stop 01/24/17 at 06:59 Prochlorperazine Edisylate (Compazine) 5 mg PACU PRN PRN IV NAUSEA, MRX1; Start 01/23/17 at 07:00; Stop 01/24/17 at 06:59 Active Scripts Active Reported Proair Hfa Inhaler (Albuterol Sulfate) 8.5 Gm Hfa.aer.ad 1 Puff INH PRN Q6HRS PRN Aspirin 325 Mg Tablet 325 Tab PO DAILY Clopidogrel (Clopidogrel Bisulfate) 75 Mg Tablet 1 Tab PO DAILY Norvasc (Amlodipine Besylate) 10 Mg Tablet 10 Mg PO DAILY Vitals/I & O Vital Sign - Last 24 Hours 01/22/17 01/22/17 01/22/17 01/22/17 11:00 12:26 12:26 15:00 Temp 98.4 98.1 98.4 98.1 Pulse 78 78 74 Resp 18 16 B/P (MAP) 144/83 (103) 144/83 125/66 (85) Pulse Ox 99 96 98 O2 Delivery Room Air Room Air Room Air 01/22/17 01/22/17 01/22/17 01/22/17 16:13 19:00 20:00 23:23 Temp 97.7 97.9 97.7 97.9 Pulse 86 75 Resp 18 18 B/P (MAP) 136/68 (90) 107/55 (72) Pulse Ox 98 98 98 O2 Delivery Room Air Room Air Room Air Room Air 01/23/17 01/23/17 01/23/17 02:59 07:00 08:54 Temp 98.1 98.1 98.1 98.1 Pulse 89 70 70 Resp 16 18 B/P (MAP) 100/77 (85) 162/66 (98) 162/66 Pulse Ox 98 100 O2 Delivery Room Air Room Air Intake and Output 01/22/17 01/22/17 01/23/17 15:00 23:00 07:00 Intake Total 120 ml 120 ml Balance 120 ml 120 ml VISHAL MCGINNIS MD Jan 23, 2017 09:21
[2017-01-23] MEDS ORDERED: PROPOFOL 20 ML IV ONE (15:32)
[2017-01-23] MEDS ORDERED: LIDOCAINE 2% PF Vial for OR 5 ML VIAL. ONE (15:32)
--- NOTE | 2017-01-23 15:45 | PDOC4 ---
Operative Note Operative Note EGD Pre-op dx acute blood anemia/melena Post-op dx atrophic gastritis Meds propofol per anesthesia Plan medical therapy with iron supplements o/p colonoscopy JIM BECKMAN MD Jan 23, 2017 15:45
[2017-01-23] MEDS ORDERED: POLYETHYLENE GLYCOL 3350 17 GM PACKET. PO PRN (21:15)
[2017-01-23] MEDS: DOCUSATE SODIUM 100 MG CAPSULE. PO PRN (22:43)
[2017-01-24 03:09] VITALS: BP 137/77
[2017-01-24 05:52] LABS: HEMATOCRIT 26.4 % (36.0-47.0); HEMOGLOBIN 8.5 g/dL (12.0-15.5)
[2017-01-24 07:00] VITALS: BP 116/74
[2017-01-24] MEDS: ALBUTEROL SULFATE 2.5 MG/3 ML NEBU. NEB PRN (08:23)
[2017-01-24] MEDS: DOCUSATE SODIUM 100 MG CAPSULE. PO PRN (08:49)
[2017-01-24] MEDS: amLODIPine BESYLATE 10 MG TABLET PO SCH (08:49)
[2017-01-24] MEDS: ASPIRIN 325 MG TABLET PO SCH (08:49)
[2017-01-24] MEDS: PANTOPRAZOLE IV PUSH 40 MG VIAL. IVP SCH (08:49)
[2017-01-24] MEDS: CLOPIDOGREL BISULFATE 75 MG TABLET PO SCH (08:49)
--- NOTE | 2017-01-24 09:06 | PDOC ---
Subjective: Subjective: Still SOA. Tolerating PO w/ dark stool. Objective: Vital Signs: Vital Signs Date Time Temp Pulse Resp B/P (MAP) Pulse Ox O2 Delivery O2 Flow Rate FiO2 01/24/17 08:49 80 137/77 01/24/17 08:23 99 Nasal Cannula 2.0 01/24/17 03:09 98.3 16 98.3 Imaging: EGD 01/23/17: atrophic gastritis PE: GEN: NAD LUNGS: nasal cannula HEART: RRR ABD: NABS, S/ND/NT NEURO/PSYCH: A & O 3 A/P: GARY, hemoccult positive/dark stools -Hgb stable, transfused 2 units pRBCs total -EGD w/ atrophic gastritis, started on B12 inj -h/o colon polyps s/p resection, last colonoscopy 15 years ago -s/p aneurysm coiling on Plavix and ASA -ongoing SOA -- Add PO iron, change PPI to PO. Outpt colonoscopy - our office will arrange. DC per primary. SAKINA ORTIZ Jan 24, 2017 09:06
[2017-01-24] MEDS ORDERED: FERROUS SULFATE ORAL 300 MG/5 ML SOLUTION. PO SCH (09:30)
[2017-01-24 11:00] VITALS: BP 120/64
[2017-01-24] MEDS ORDERED: CYANOCOBALAMIN (VITAMIN B-12) 1,000 MCG/ML VIAL IM SCH (13:00)
--- NOTE | 2017-01-24 14:33 | PDOC ---
PROGRESS NOTES Chief Complaint Chief Complaint Melena Asthma Anemia of chronic disease Hypokalemia Positive stool occult History of intracranial aneurysm Osteoarthritis History of Present Illness History of Present Illness Pt seen at bedside. She is breathing well with NC, is feeling much better, and anticipating discharge soon. Vitals Vitals Vital Signs Date Time Temp Pulse Resp B/P (MAP) Pulse Ox O2 Delivery O2 Flow Rate FiO2 01/24/17 11:00 98.8 87 18 120/64 (82) 99 Room Air 98.8 01/24/17 08:23 2.0 Physical Exam Physical Exam Eyes: sclera anicteric, no conjunctival injection HENT: MMM, no throat erythema General: Alert, Cooperative, No acute distress Heart: Regular rate, Normal S1, Normal S2, No murmurs Lungs: Clear, Other (No rales, rhonchi, wheezes) Extremities: No clubbing, No cyanosis Labs LABS Laboratory Tests Test 01/24/17 05:20 Hemoglobin 8.5 g/dL (12.0-15.5) Hematocrit 26.4 % (36.0-47.0) Mean Corpuscular Hemoglobin Concent 32 g/dL (31-37) Review of Systems Review of Systems Admits to SOA with exertion Denies fatigue or chest pain Assessment and Plan Assessmemt and Plan Problems Medical Problems: (1) Anemia Status: Acute (2) GI bleed Status: Acute ASSESSMENT: Melena Anemia of chronic disease Hypokalemia Positive stool occult History of intracranial aneurysm October 08 on aspirin and Plavix Osteoarthritis on as needed NSAIDs PLAN: Continue breathing treatments Continue B12 injections, PO Fe, PO PPI upon discharge Outpt Colonoscopy PT/OT D/C to home Followup with PCP Problems: Comment Review of Relevant I have reviewed the following items frieda (where applicable) has been applied. Labs Laboratory Tests Test 01/23/17 05:00 01/24/17 05:20 Hemoglobin 8.7 g/dL (12.0-15.5) 8.5 g/dL (12.0-15.5) Hematocrit 27.7 % (36.0-47.0) 26.4 % (36.0-47.0) Mean Corpuscular Hemoglobin Concent 31 g/dL (31-37) 32 g/dL (31-37) Laboratory Tests Test 01/24/17 05:20 Hemoglobin 8.5 g/dL (12.0-15.5) Hematocrit 26.4 % (36.0-47.0) Mean Corpuscular Hemoglobin Concent 32 g/dL (31-37) Medications Current Medications Pantoprazole Sodium (PROTONIX VIAL for IV PUSH) 40 mg 1X ONCE IVP Last administered on 01/21/17 16:18; Start 01/21/17 at 16:15; Stop 01/21/17 at 16:16 ; Status DC Amlodipine Besylate (Norvasc) 10 mg DAILY PO Last administered on 01/24/17 08: 49; Start 01/22/17 at 09:00 Aspirin (Brown Aspirin) 325 mg DAILY PO Last administered on 01/24/17 08:49; Start 01/22/17 at 09:00 Clopidogrel Bisulfate (Plavix) 75 mg DAILY PO Last administered on 01/24/17 08 :49; Start 01/22/17 at 09:00 Non-Formulary Medication 1 puff PRN Q6HRS PRN INH SHORTNESS OF BREATH; Start 01/21/17 at 23:15; Status UNV Albuterol Sulfate (Ventolin Neb Soln) 2.5 mg PRN Q6HRS PRN NEB SHORTNESS OF BREATH Last administered on 01/24/17 08:23; Start 01/21/17 at 23:30 Guaifenesin (Robitussin Dm) 10 ml PRN Q6HRS PRN PO COUGH; Start 01/22/17 at 11: 00 Pantoprazole Sodium (PROTONIX VIAL for IV PUSH) 40 mg DAILYAC IVP Last administered on 01/24/17 08:49; Start 01/22/17 at 12:00; Stop 01/24/17 at 09:07 ; Status DC Ondansetron HCl (Zofran) 4 mg PRN Q6HRS PRN IV NAUSEA/VOMITING; Start 01/23/17 at 07:00; Stop 01/24/17 at 06:59; Status DC Fentanyl Citrate (Fentanyl 2ml Vial) 25 mcg PRN Q5MIN PRN IV MILD PAIN; Start 01/23/17 at 07:00; Stop 01/24/17 at 06:59; Status DC Fentanyl Citrate (Fentanyl 2ml Vial) 50 mcg PRN Q5MIN PRN IV MODERATE PAIN; Start 01/23/17 at 07:00; Stop 01/24/17 at 06:59; Status DC Morphine Sulfate 1 mg PRN Q10MIN PRN IV SEVERE PAIN; Start 01/23/17 at 07:00; Stop 01/24/17 at 06:59; Status DC Ringer's Solution 1,000 ml @ 0 mls/hr Q0M IV Last administered on 01/23/17 14 :50; Start 01/23/17 at 07:00; Stop 01/23/17 at 18:59; Status DC Lidocaine HCl (Xylocaine-Mpf 1% Vial) 2 ml PRN 1X PRN ID PRIOR TO IV START; Start 01/23/17 at 07:00; Stop 01/24/17 at 06:59; Status DC Hydromorphone HCl (Dilaudid) 0.5 mg PRN Q10MIN PRN IV SEV PAIN, Second choice; Start 01/23/17 at 07:00; Stop 01/24/17 at 06:59; Status DC Prochlorperazine Edisylate (Compazine) 5 mg PACU PRN PRN IV NAUSEA, MRX1; Start 01/23/17 at 07:00; Stop 01/24/17 at 06:59; Status DC Propofol 20 ml @ As Directed STK-MED ONCE IV ; Start 01/23/17 at 15:32; Stop at 15:33; Status DC Lidocaine HCl (Lidocaine Pf 2% Vial) 5 ml STK-MED ONCE .ROUTE ; Start 01/23/17 at 15:32; Stop 01/23/17 at 15:33; Status DC Cyanocobalamin (Vitamin B-12) 1,000 mcg AFTRNOON IM Last administered on 14:05; Start 01/24/17 at 13:00 Docusate Sodium (Colace) 100 mg PRN BID PRN PO CONSTIPATION Last administered on 01/24/17 08:49; Start 01/23/17 at 21:15 Polyethylene Glycol (miraLAX PACKET) 17 gm PRN DAILY PRN PO CONSTIPATION; Start 01/23/17 at 21:15 Ferrous Sulfate 300 mg BIDWMEALS PO Last administered on 01/24/17 09:30; Start 01/24/17 at 09:30 Pantoprazole Sodium (Protonix) 40 mg DAILYAC PO ; Start 01/25/17 at 07:30 Active Scripts Active Reported Proair Hfa Inhaler (Albuterol Sulfate) 8.5 Gm Hfa.aer.ad 1 Puff INH PRN Q6HRS PRN Aspirin 325 Mg Tablet 325 Tab PO DAILY Clopidogrel (Clopidogrel Bisulfate) 75 Mg Tablet 1 Tab PO DAILY Norvasc (Amlodipine Besylate) 10 Mg Tablet 10 Mg PO DAILY Vitals/I & O Vital Sign - Last 24 Hours 01/23/17 01/23/17 01/23/17 01/23/17 14:47 14:48 15:45 15:58 Temp 98.0 97.3 98.0 97.3 Pulse 76 80 90 85 Resp 20 20 20 20 B/P (MAP) 113/66 117/68 Pulse Ox 96 99 96 97 O2 Delivery Room Air Room Air 01/23/17 01/23/17 01/23/17 01/23/17 16:00 16:06 16:10 16:10 Temp 96.6 96.5 96.6 96.5 Pulse 85 82 86 85 Resp 20 18 20 16 B/P (MAP) 117/68 117/72 (87) 121/70 117/72 (87) Pulse Ox 97 100 96 98 O2 Delivery Room Air Room Air Room Air Room Air 01/23/17 01/23/17 01/23/17 01/23/17 16:16 19:30 20:00 22:46 Temp 97.7 98.1 97.7 98.1 Pulse 79 89 Resp 18 18 B/P (MAP) 119/71 (87) 104/68 (80) 124/64 (84) Pulse Ox 97 O2 Delivery Room Air Room Air Room Air Room Air O2 Flow Rate 2.0 01/24/17 01/24/17 01/24/17 01/24/17 03:09 07:00 08:15 08:23 Temp 98.3 98.5 98.3 98.5 Pulse 80 90 Resp 16 18 B/P (MAP) 137/77 (97) 116/74 (88) Pulse Ox 97 97 99 O2 Delivery Room Air Room Air Nasal Cannula Nasal Cannula O2 Flow Rate 2.0 2.0 01/24/17 01/24/17 08:49 11:00 Temp 98.8 98.8 Pulse 80 87 Resp 18 B/P (MAP) 137/77 120/64 (82) Pulse Ox 99 O2 Delivery Room Air Intake and Output 01/23/17 01/23/17 01/24/17 15:00 23:00 07:00 Intake Total 200 ml 240 ml Balance 200 ml 240 ml EDDIE STEPHENSON III DO Jan 24, 2017 14:33
[2017-01-24 15:00] VITALS: BP 116/64
[2017-01-25] MEDS ORDERED: PANTOPRAZOLE 40 MG TABLET.DR. PO SCH (07:30)
== END 2017-01-24 16:05 | disposition home or self-care (01) | DRG 378 ==
LOC: ER 15:00 → 4 NORTH 16:00
PROVIDERS: ADMIT Internal Medicine Hematology & Oncology; ATTEND Internal Medicine Hematology & Oncology
PROC: 30233N1 Transfusion of Nonautologous Red Blood Cells into Peripheral Vein, Percutaneous Approach (ICD-10-PCS; 2017-01-21)
PROC: 0DJ08ZZ Inspection of Upper Intestinal Tract, Via Natural or Artificial Opening Endoscopic (ICD-10-PCS; principal; 2017-01-23 15:30)
DX: K92.1 Melena (principal); D62 Acute posthemorrhagic anemia; C16.9 Malignant neoplasm of stomach, unspecified; D63.8 Anemia in other chronic diseases classified elsewhere; J45.901 Unspecified asthma with (acute) exacerbation; J44.9 Chronic obstructive pulmonary disease, unspecified; D17.9 Benign lipomatous neoplasm, unspecified; K29.40 Chronic atrophic gastritis without bleeding; K92.2 Gastrointestinal hemorrhage, unspecified; E87.6 Hypokalemia; F32.9 Major depressive disorder, single episode, unspecified; F41.9 Anxiety disorder, unspecified; I10 Essential (primary) hypertension; K57.90 Diverticulosis of intestine, part unspecified, without perforation or abscess without bleeding; K63.5 Polyp of colon; M19.90 Unspecified osteoarthritis, unspecified site; Z79.02 Long term (current) use of antithrombotics/antiplatelets; Z79.82 Long term (current) use of aspirin; Z79.899 Other long term (current) drug therapy; Z80.9 Family history of malignant neoplasm, unspecified; Z86.010 Personal history of colon polyps; Z86.79 Personal history of other diseases of the circulatory system; Z87.891 Personal history of nicotine dependence; Z88.8 Allergy status to other drugs, medicaments and biological substances; Z80.0 Family history of malignant neoplasm of digestive organs; Z79.01 Long term (current) use of anticoagulants
CPT/HCPCS: 36415; 71010; 80048; 80053; 82274; 82553; 82607; 82728; 82746; 83540; 83550; 83735; 83880; 84484; 85014; 85018; 85025; 85610; 85730; 86850; 86900; 86901; 86920; 93005; 94250; 94640; 94760; 96374; C9113; J2704; J3420; J7120; J7613; P9016; 99285-25; J2001

== ENCOUNTER → 2017-02-07 | Day surgery (SDC) | payer MEDICARE ==
[~2017-02-07] MED LIST changes: -AMLO10TA4 PO; -BIOT10TA PO; +LIDOCAINE 1% PF 2 ML VIAL. ID; +LIDOCAINE 2% PF Vial for OR 5 ML VIAL.; +MIDAZOLAM HCL/PF 2 MG/2 ML VIAL. IV; -MULT-245 PO; -OXYC-323 PO; -PROAIR RESPICL90 MCG IH; +PROPOFOL 40 ML IV; -VIT1TABL2 PO; +fentaNYL PF VIAL 100 MCG/2 ML VIAL IV
[2017-02-07] MEDS: IV RINGERS,LACTATED 1000ML 1,000 ML IV (07:46)
== END | disposition home or self-care (01) ==
LOC: ENDOS 07:40
DX: K62.1 Rectal polyp (principal); K64.0 First degree hemorrhoids; D50.0 Iron deficiency anemia secondary to blood loss (chronic); K57.30 Diverticulosis of large intestine without perforation or abscess without bleeding; I10 Essential (primary) hypertension; J44.9 Chronic obstructive pulmonary disease, unspecified; F41.9 Anxiety disorder, unspecified; F32.9 Major depressive disorder, single episode, unspecified; D64.9 Anemia, unspecified; Z86.69 Personal history of other diseases of the nervous system and sense organs; Z98.42 Cataract extraction status, left eye; Z98.51 Tubal ligation status; Z87.39 Personal history of other diseases of the musculoskeletal system and connective tissue; Z88.1 Allergy status to other antibiotic agents; Z88.2 Allergy status to sulfonamides; Z98.890 Other specified postprocedural states; Z87.891 Personal history of nicotine dependence; Z88.8 Allergy status to other drugs, medicaments and biological substances
CPT/HCPCS: 45380; 88305; J2704

== ENCOUNTER 2017-06-05 18:50 | Emergency (ER) | payer MEDICARE ==
[2017-06-05] MEDS: ACETAMINOPHEN 325 MG TABLET. PO (20:30)
[2017-06-05 20:40] LABS: BILIRUBIN,URINE NEGATIVE (NEG); CLARITY,URINE CLEAR; COLOR,URINE YELLOW; GLUCOSE,URINE NEGATIVE (NEG); NITRITE,URINE NEGATIVE (NEG); PH,URINE 6.5; PROTEIN,URINE NEGATIVE (NEG-TRACE); UROBILINOGEN,URINE 0.2 mg/dL (0.2 mg/dL)
[2017-06-05 20:54] LABS: BACTERIA,URINE 0 /HPF (0-FEW); RBC,URINE 0 /HPF (0-2); SQUAMOUS EPITHELIAL CELL,UR FEW /LPF
== END 2017-06-05 22:26 | disposition home or self-care (01) ==
LOC: ER 18:50
DX: M16.12 Unilateral primary osteoarthritis, left hip (principal); J44.9 Chronic obstructive pulmonary disease, unspecified; I10 Essential (primary) hypertension; I67.1 Cerebral aneurysm, nonruptured; Z88.1 Allergy status to other antibiotic agents; Z88.2 Allergy status to sulfonamides; Z88.8 Allergy status to other drugs, medicaments and biological substances
CPT/HCPCS: 72100; 73502; 81001; 87086; 99285

== ENCOUNTER → 2019-01-27 | Outpatient (CLI) | payer OTHER ==
[2017-06-05 20:07] VITALS: BP 132/71
[~2019-01-27] MED LIST changes: +ALBU2.5V8 INH; +AMLO10TA4 PO; +ASPI325T8 PO; +BIOT10TA PO; +CLOP75TA PO; +IOHEXOL 300 MG/ML 100ML VIAL. IV ONE; -LIDOCAINE 1% PF 2 ML VIAL. ID; -LIDOCAINE 2% PF Vial for OR 5 ML VIAL.; +METH4TAB2 PO; -MIDAZOLAM HCL/PF 2 MG/2 ML VIAL. IV; +MULT-245 PO; +OXYC1TAB15 PO; +PROAIR RESPICL90 MCG IH; -PROPOFOL 40 ML IV; +VIT1TABL2 PO; -fentaNYL PF VIAL 100 MCG/2 ML VIAL IV
--- NOTE | 2019-01-27 09:33 | RAD ---
Examination: CT CHEST W/CONTRAST History: COPD Comparison/Correlation: 02/07/2013 CTA chest abdomen and pelvis Findings: Axial images of the chest were obtained following IV contrast. Sagittal and coronal reformatted images were provided. Loculated pericardial effusion about the right ventricle is present measuring 1.1 cm anteroposterior by 6.8 cm transverse is similar to the prior CT exam. No enlarged thoracic lymph nodes. Thoracic aorta is unremarkable for the patient's age. There is a common trunk for the right brachiocephalic artery and the left common carotid artery. Centrilobular emphysema is present. No pneumothorax. No infiltrate. No suspicious pulmonary nodule. Bony structures are unremarkable for the patient's age. Disc osteophyte complex at T7-8 is noted with central protrusion Low-attenuation hepatic lesion measuring 0.9 cm diameter is present on axial image 57 of series 2 and may represent a cyst. This too small for characterization but has remained stable since 02/07/2013 CT exam. Diverticulosis of the partially visualized colon is noted. Impression: Centrilobular emphysema. No infiltrate. PQRS Compliance Statement: One or more of the following individualized dose reduction techniques were utilized for this examination: 1. Automated exposure control 2. Adjustment of the mA and/or kV according to patient size 3. Use of iterative reconstruction technique Electronically signed by: Blu Morales MD (01/27/2019 9:30 AM) [facility]
--- NOTE | 2019-01-27 16:55 | RAD ---
DATE: 01/27/2019 EXAM: MAMMO SUGAR SCREENING BILATERAL HISTORY: Routine screening COMPARISON: Previous mammography was performed more than 10 years ago. No prior exams are available for comparison. This study was interpreted with the benefit of Computerized Aided Detection (CAD). Breast Density: HETERO The breast parenchyma is heterogenously dense, which could reduce sensitivity of mammography. Breast parenchyma level C. FINDINGS: Asymmetry involving the left supra-areolar region is present approximately 1.8 cm from the nipple. Additional asymmetry involving the left breast is present within the mid breast region 6.2 cm from the nipple. No dominant mass. No suspicious calcific lesion or distortion. IMPRESSION: Left breast asymmetries. BI-RADS CATEGORY: 0 INCOMPLETE: NEEDS ADDITIONAL IMAGING EVALUATION AND/OR PRIOR MAMMOGRAMS FOR COMPARISON. RECOMMENDED FOLLOW-UP: ADD ADDITIONAL IMAGING . Spot compression imaging of the left breast is recommended. Ultrasound may be needed. PQRS compliance statement: Patient information was entered into a reminder system with a target due date for the next mammogram. Mammography is a sensitive method for finding small breast cancers, but it does not detect them all and is not a substitute for careful clinical examination. A negative mammogram does not negate a clinically suspicious finding and should not result in delay in biopsying a clinically suspicious abnormality. "Our facility is accredited by the [employer] Mammography Program."
== END | disposition home or self-care (01) ==
LOC: CT 07:18
PROVIDERS: ATTEND Family Medicine
DX: Z12.31 Encounter for screening mammogram for malignant neoplasm of breast (principal); J43.2 Centrilobular emphysema; I31.3 Pericardial effusion (noninflammatory); M25.78 Osteophyte, vertebrae; M51.24 Other intervertebral disc displacement, thoracic region; K76.9 Liver disease, unspecified; I10 Essential (primary) hypertension; F17.200 Nicotine dependence, unspecified, uncomplicated; Z79.01 Long term (current) use of anticoagulants
CPT/HCPCS: 71260; 77063; 77067; Q9967

== ENCOUNTER → 2019-01-30 | Outpatient (CLI) | payer OTHER ==
[2017-06-05 20:07] VITALS: BP 132/71
[~2019-01-30] MED LIST changes: -IOHEXOL 300 MG/ML 100ML VIAL. IV ONE
--- NOTE | 2019-01-30 09:34 | RAD ---
DATE: 01/30/2019 EXAM: DIGITAL DIAGNOSTIC LT HISTORY: Abnormal mammogram COMPARISON: 01/27/2019 This study was interpreted with the benefit of Computerized Aided Detection (CAD). Breast Density: HETERO The breast parenchyma is heterogenously dense, which could reduce sensitivity of mammography. Breast parenchyma level C. FINDINGS: There is no suspicious mass lesion identified on spot compression imaging in the anterior MLO or in the posterior CC regions of the left breast. IMPRESSION: Unremarkable BI-RADS CATEGORY: 2 BENIGN FINDING(S) RECOMMENDED FOLLOW-UP: 12M 12 MONTH FOLLOW-UP PQRS compliance statement: Patient information was entered into a reminder system with a target due date for the next mammogram. Mammography is a sensitive method for finding small breast cancers, but it does not detect them all and is not a substitute for careful clinical examination. A negative mammogram does not negate a clinically suspicious finding and should not result in delay in biopsying a clinically suspicious abnormality. "Our facility is accredited by the [employer] Mammography Program."
== END | disposition home or self-care (01) ==
LOC: MAMMO 08:43
PROVIDERS: ATTEND Family Medicine
DX: R92.8 Other abnormal and inconclusive findings on diagnostic imaging of breast (principal)
CPT/HCPCS: 77065

== ENCOUNTER → 2019-02-17 | Outpatient (CLI) | payer OTHER ==
[2017-06-05 20:07] VITALS: BP 132/71
[~2019-02-17] MED LIST changes: +BUPIVACAINE MPF 0.5% 10 ML VIAL for KCIC. IJ ONE; +IOHEXOL 300 MG/ML 50 ML VIAL. INT ART ONE; +LIDOCAINE 1% Multi-Dose 20 ML VIAL. ID ONE; +methylPREDNISolone ACETATE 40 MG/ML VIAL. INT ART ONE
--- NOTE | 2019-02-17 16:18 | KCIC ---
PROCEDURE Therapeutic left hip injection using fluoroscopic guidance. HISTORY Hip pain. Chronic left hip pain. TECHNIQUE The procedure was explained to the patient as were potential risks, including infection, bleeding or allergic reaction. All questions were answered. Informed written and verbal consent was obtained. The hip was prepped and draped in the usual sterile manner. Following administration of local anesthetic, a 22-gauge spinal needle was advanced into the hip joint without difficulty, with care taken to avoid the vascular structures. Stylet was removed and following negative aspiration, a mixture of 4 cc Omnipaque-300, 2 cc (80 mg) Depo-Medrol, 4 cc bupivacaine and 4 cc 1% lidocaine were injected without difficulty. Fluoroscopy demonstrates uniform and satisfactory distribution of the injection through the hip. The needle was removed. There was good hemostasis at the injection site. The patient left in stable condition without immediate complication. Patient was advised as to potential postprocedural complications and advised to contact their physician or the emergency room in such event. A single spot image was obtained. FLUOROSCOPY TIME: 28 seconds Electronically signed by: Samm Mcgowan MD (02/17/2019 4:16 PM) [id number]
== END | disposition home or self-care (01) ==
LOC: KCIC 09:46
PROVIDERS: ATTEND Orthopaedic Surgery Sports Medicine
DX: M25.552 Pain in left hip (principal); G89.29 Other chronic pain; J44.9 Chronic obstructive pulmonary disease, unspecified; F17.200 Nicotine dependence, unspecified, uncomplicated; Z79.01 Long term (current) use of anticoagulants
CPT/HCPCS: 20610; 77002; J1030; Q9967

== ENCOUNTER 2019-09-04 16:06 | Inpatient (IN) | payer MEDICARE, OTHER ==
[~2019-09-04] VITALS: Ht 165.1 cm; Wt 64.4 kg
[~2019-09-04 16:06] MED LIST changes: -BUPIVACAINE MPF 0.5% 10 ML VIAL for KCIC. IJ ONE; -IOHEXOL 300 MG/ML 50 ML VIAL. INT ART ONE; -LIDOCAINE 1% Multi-Dose 20 ML VIAL. ID ONE; -methylPREDNISolone ACETATE 40 MG/ML VIAL. INT ART ONE
--- NOTE | 2019-09-04 16:40 | PHYS DOC ---
Past Medical History Past Medical History: COPD, Hypertension, Other Additional Past Medical Histor: Brain aneurysm Past Surgical History: Other Additional Past Surgical Histo: intestinal polyp,Brain aneurysm Smoking Status: Current Every Day Smoker Alcohol Use: None Drug Use: None General Adult EDM: Chief Complaint: DIZZY/LIGHT HEADED HPI: HPI: Patient is a 74 year old female who presents with chief complaint of dizziness and rectal bleeding. She has had rectal bleeding now for 2 or 3 large episodes filled the toilet bowl twice earlier today she felt dizzy she did not pass out she just felt kind of weak. She has dull left lower quadrant abdominal pain for this time. As well last colonoscopy was a couple years back polyps were identified no other issues noted. 3 years ago she did have rectal melena related to gastritis in the setting of blood thinners are being used after a she tells me she had an aneurysm. That is all she is recovered from that now. Patient does smoke cigarettes denies alcohol. Review of Systems: Review of Systems: Constitutional: Denies fever or chills. [] Eyes: Denies change in visual acuity. [] HENT: Denies nasal congestion or sore throat. [] Musculoskeletal: Denies back pain or joint pain. [] Integument: Denies rash. [] Neurologic: Denies headache, focal weakness or sensory changes. [] Endocrine: Denies polyuria or polydipsia. [] Lymphatic: Denies swollen glands. [] Psychiatric: Denies depression or anxiety. [] Heart Score: Risk Factors: Risk Factors: DM, Current or recent (<one month) smoker, HTN, HLP, family history of CAD, obesity. Risk Scores: Score 0 - 3: 2.5% MACE over next 6 weeks - Discharge Home Score 4 - 6: 20.3% MACE over next 6 weeks - Admit for Clinical Observation Score 7 - 10: 72.7% MACE over next 6 weeks - Early Invasive Strategies Allergies: Allergies: Allergies Coded Allergies Type Severity Reaction Last Updated Verified YVONNE Inhibitors Allergy Severe angioedema "my tongue swells" 02/07/17 Yes doxycycline Allergy Intermediate n/v 02/07/17 Yes sulfamethoxazole Allergy Intermediate n/v 02/07/17 Yes trimethoprim Allergy Intermediate n/v 02/07/17 Yes Physical Exam: PE: Constitutional: Well developed, well nourished, no acute distress, non-toxic appearance. [] HENT: Normocephalic, atraumatic, bilateral external ears normal, oropharynx moist, no oral exudates, nose normal. [] Eyes: PERRLA, EOMI, conjunctiva normal, no discharge. [] Neck: Normal range of motion, no tenderness, supple, no stridor. [] Pulmonary: Normal respiratory effort no increased work of breathing no obvious chest wall trauma Abdomen: Bowel sounds normal, soft, mild left lower quadrant tenderness, no masses, no pulsatile masses. Rectal exam hematochezia noted sent to lab for testing no obvious hemorrhoids were identified. This was performed with Thuy advanced registered nurse Skin: Warm, dry, no erythema, no rash. [] Back: No tenderness, no CVA tenderness. [] Extremities: No tenderness, no cyanosis, no clubbing, ROM intact, no edema. [] Neurologic: Alert and oriented X 3, normal motor function, normal sensory function, no focal deficits noted. [] Psychologic: Affect normal, judgement normal, mood normal. [] Current Patient Data: Vital Signs: Vital Signs Date Time Temp Pulse Resp B/P (MAP) Pulse Ox O2 Delivery O2 Flow Rate FiO2 09/04/19 16:07 98.2 80 14 128/77 (94) 98 Room Air 98.2 EKG: EKG: [] Radiology/Procedures: Radiology/Procedures: [] Course & Med Decision Making: Course & Med Decision Making Pertinent Labs and Imaging studies reviewed. (See chart for details) [] This is a 74-year-old female with a prior history of a brain aneurysm prior GI bleed related to gastritis who is presenting with rectal bleeding. Differential would include diverticulosis versus hemorrhoids although I did not see any on examination versus colitis. Given the dizziness and the multiple episodes at home sounds like fairly large volume I feel that she warrants observation. In the emergency room type and screen was performed normal saline was given Protonix was ordered low suspicion for upper GI bleed to just give a bolus dose of Protonix. Discussed with Dr. Medina at 5:[address] scan abdomen pelvis is pending to evaluate for the possibly of colitis I have overall low suspicion for that. Dragon Disclaimer: Dragumberto Disclaimer: This electronic medical record was generated, in whole or in part, using a voice recognition dictation system. Departure Departure Impression: Primary Impression: GI bleed Disposition: ADMITTED INPATIENT Admitting Physician: MADI Condition: STABLE Referrals: LORI ESTRADA MD (PCP) Justicifation of Admission Dx: Justifications for Admission: Justification of Admission Dx: Yes Comments: NELIDA Waggoner MD Sep 04, 2019 16:39
[2019-09-04 16:43] LABS: BASO % 0 % (0-3); EOS # 0.1 x10^3/uL (0.0-0.7); EOS % 1 % (0-3); HEMATOCRIT 33.7 % (36.0-47.0); HEMOGLOBIN 11.8 g/dL (12.0-15.5); LYMPH # 2.5 x10^3/uL (1.0-4.8); LYMPH % 28 % (24-48); MEAN CORPUSCULAR HEMOGLOBIN 33 pg (25-35); MEAN CORPUSCULAR HGB CONC 35 g/dL (31-37); MEAN CORPUSCULAR VOLUME 94 fL (79-100); MONO # 0.6 x10^3/uL (0.0-1.1); MONO % 6 % (0-9); NEUT # 5.7 x10^3/uL (1.8-7.7); NEUT % 64 % (31-73); PLATELET COUNT 265 x10^3/uL (140-400); RED BLOOD COUNT 3.57 x10^6/uL (3.50-5.40); RED CELL DISTRIBUTION WIDTH 15.2 % (11.5-14.5)
[2019-09-04 16:47] LABS: FECAL OB PT POSITIVE (NEG)
[2019-09-04 16:53] LABS: CALCIUM 8.4 mg/dL (8.5-10.1); CREATININE 0.9 mg/dL (0.6-1.0); GFR 74.1; POTASSIUM 3.2 mmol/L (3.5-5.1)
[2019-09-04 16:58] LABS: ALBUMIN 3.3 g/dL (3.4-5.0); ALBUMIN/GLOBULIN RATIO 1.2 (1.0-1.7); TOTAL BILIRUBIN 0.1 mg/dL (0.2-1.0); TOTAL PROTEIN 6.1 g/dL (6.4-8.2)
[2019-09-04] MEDS ORDERED: PANTOPRAZOLE IV PUSH 40 MG VIAL. IVP ONE (17:00)
[2019-09-04] MEDS ORDERED: IV NORMAL SALINE 500ML BAG 500 ML IV ONE (17:00)
[2019-09-04] MEDS ORDERED: IOHEXOL 300 MG/ML 100ML VIAL. IV ONE (17:15)
[2019-09-04] MEDS ORDERED: CONTRAST GIVEN. MC PRN (17:15)
--- NOTE | 2019-09-04 17:23 | PDOC1 ---
History and Physical Date of Admission Date of Admission DATE: 09/04/19 TIME: 17:22 Identification/Chief Complaint Chief Complaint seen in er with acute rectal bleeding EGD 2017 . H/o colon resection for polyps x 15 years ago, has h/o diverticulosis. FH of pancreatic cancer; Dr. Caceres has seen previously for dilated pancreatic duct w/ borderline CBD and she has also undergone workup @ [facility] 74 year old female who presents with chief complaint of dizziness and rectal bleeding. // had rectal bleeding now for 2 or 3 large episodes filled the toilet bowl twice earlier today she felt dizzy she did not pass out she just felt weak. c/o dull left lower quadrant abdominal pain for this time. As well last colonoscopy was 2 years ago polyps were identified no other issues noted. 3 years ago she did have rectal melena related to gastritis in the setting of blood thinners are being used after a she tells me she had an aneurysm. That is all she is recovered from that now. Patient does smoke cigarettes denies alcohol. normal CA19-9 in 2012. gastritis seen on egd in 2017 hgb in ER =11 Past Medical History Past Medical History Past Medical History Past Medical History Past Medical History: COPD, Hypertension, Other Additional Past Medical Histor: Brain aneurysm Past Surgical History: Other Additional Past Surgical Histo: intestinal polyp,Brain aneurysm Smoking Status: Current Every Day Smoker Alcohol Use: None Drug Use: None fhx COPD Cardiovascular: HTN Pulmonary: COPD, Pneumonia CENTRAL NERVOUS SYSTEM: Other GI: No pertinent hx Heme/Onc: No pertinent hx Hepatobiliary: No pertinent hx Psych: Anxiety, Depression Musculoskeletal: Osteoarthritis Rheumatologic: No pertinent hx Infectious disease: No pertinent hx Renal/: No pertinent hx Endocrine: No pertinent hx Past Surgical History Past Surgical History: Colon Resection Family History Family History: Cancer, Hypertension, Stroke Social History Smoke: <1 pack per day ALCOHOL: occassional Drugs: None Current Problem List Problem List Problems Medical Problems: (1) GI bleed Status: Acute Current Medications Current Medications Current Medications Sodium Chloride 500 ml @ 500 mls/hr 1X ONCE IV Last administered on 09/04/19at 17:07; Start 09/04/19 at 17:00; Stop 09/04/19 at 17:59 Pantoprazole Sodium (PROTONIX VIAL for IV PUSH) 40 mg 1X ONCE IVP Last administered on 09/04/19at 17:08; Start 09/04/19 at 17:00; Stop 09/04/19 at 17:01; Status DC Potassium Chloride (Klor-Con) 20 meq 1X ONCE PO Last administered on 09/04/19at 17:10; Start 09/04/19 at 17:30; Stop 09/04/19 at 17:31 Sodium Chloride 1,000 ml @ 75 mls/hr [id number] IV ; Start 09/04/19 at 17:04; Stop 09/05/19 at 17:03 Iohexol (Omnipaque 300 Mg/ml) 75 ml 1X ONCE IV Last administered on 09/04/19at 17:18; Start 09/04/19 at 17:15; Stop 09/04/19 at 17:16; Status DC Info (CONTRAST GIVEN -- Rx MONITORING) 1 each PRN DAILY PRN MC SEE COMMENTS; Start 09/04/19 at 17:15; Stop 09/06/19 at 17:14 Active Scripts Active Medrol (Methylprednisolone) 4 Mg Tab.ds.pk 1 Pkg PO UD Reported Proair Hfa Inhaler (Albuterol Sulfate) 8.5 Gm Hfa.aer.ad 1 Puff INH PRN Q6HRS PRN Aspirin 325 Mg Tablet 325 Tab PO DAILY Clopidogrel (Clopidogrel Bisulfate) 75 Mg Tablet 1 Tab PO DAILY Norvasc (Amlodipine Besylate) 10 Mg Tablet 10 Mg PO DAILY Allergies Allergies: Coded Allergies: YVONNE Inhibitors (Verified Allergy, Severe, angioedema "my tongue swells", 02/07/17) doxycycline (Verified Allergy, Intermediate, n/v, 02/07/17) sulfamethoxazole (Verified Allergy, Intermediate, n/v, 02/07/17) trimethoprim (Verified Allergy, Intermediate, n/v, 02/07/17) ROS Review of System Review of Systems: Constitutional: Denies fever or chills. [] Eyes: Denies change in visual acuity. [] HENT: Denies nasal congestion or sore throat. [] Musculoskeletal: Denies back pain or joint pain. [] Integument: Denies rash. [] Neurologic: Denies headache, focal weakness or sensory changes. [] Endocrine: Denies polyuria or polydipsia. [] Lymphatic: Denies swollen glands. [] Psychiatric: Denies depression or anxiety. [] 14 PT ROS OTHERWISE NEG General: No: Chills, Night Sweats, Fatigue, Malaise, Appetite, Other Respiratory: No: Cough, Hemoptysis, Orthopnea, Pleuritic Pain, Shortness of breath, SOB with excertion, Sputum Changes, Stridor, Tachypnea, Wheezing, Other Gastrointestinal: Yes Melena; No Nausea, No Vomiting, No Abdominal Pain, No Diarrhea, No Constipation, No Hematochezia, No Other Genitourinary: No Dysuria, No Frequency, No Incontinence, No Hematuria, No Retention, No Discharge, No Urgency, No Pain, No Flank Pain, No Other, No , No , No , No , No , No , No Neurological: Yes Dizziness; No Behavorial Changes, No Bowel/Bladder ControlChng, No Confusion, No Gait Disturbance, No Headaches, No Impaired Coord/balance, No Memory Loss, No Numbness/Tingling, No Seizures, No Speech Problems, No Tremors, No Visual Changes, No Weakness, No Other Physical Exam Physical Exam Constitutional: Well developed, well nourished, no acute distress, non-toxic appearance. [] HENT: Normocephalic, atraumatic, bilateral external ears normal, oropharynx moist, no oral exudates, nose normal. [] Eyes: PERRLA, EOMI, conjunctiva normal, no discharge. [] Neck: Normal range of motion, no tenderness, supple, no stridor. [] Pulmonary: Normal respiratory effort no increased work of breathing no obvious chest wall trauma Abdomen: Bowel sounds normal, soft, mild left lower quadrant tenderness, no masses, no pulsatile masses. Rectal exam hematochezia noted sent to lab for testing no obvious hemorrhoids were identified. This was performed with Thuy pool BY mine henderson Skin: Warm, dry, no erythema, no rash. [] Back: No tenderness, no CVA tenderness. [] Extremities: No tenderness, no cyanosis, no clubbing, ROM intact, no edema. [] Neurologic: Alert and oriented X 3, normal motor function, normal sensory function, no focal deficits noted. [] Psychologic: Affect normal, judgment normal, mood normal. [] General: Alert, Oriented X3, Cooperative, No acute distress HEENT: Atraumatic, PERRLA, EOMI, Mucous membr. moist/pink Lungs: Clear to auscultation, Normal air movement Heart: S1S2, RRR, no thrills, no rubs, no gallops Breasts: Not examined Abdomen: Normal bowel sounds, Soft PELVIC: Examination not indicated Extremities: No cyanosis Neuro: Normal speech, Cranial nerves 3-12 NL Psych/Mental Status: Mental status NL, Mood NL Vitals Vitals Vital Signs Date Time Temp Pulse Resp B/P (MAP) Pulse Ox O2 Delivery O2 Flow Rate FiO2 09/04/19 16:07 98.2 80 14 128/77 (94) 98 Room Air 98.2 Labs Labs Laboratory Tests Test 09/04/19 16:25 09/04/19 16:30 White Blood Count 9.0 x10^3/uL (4.0-11.0) Red Blood Count 3.57 x10^6/uL (3.50-5.40) Hemoglobin 11.8 g/dL (12.0-15.5) Hematocrit 33.7 % (36.0-47.0) Mean Corpuscular Volume 94 fL (79-100) Mean Corpuscular Hemoglobin 33 pg (25-35) Mean Corpuscular Hemoglobin Concent 35 g/dL (31-37) Red Cell Distribution Width 15.2 % (11.5-14.5) Platelet Count 265 x10^3/uL (140-400) Neutrophils (%) (Auto) 64 % (31-73) Lymphocytes (%) (Auto) 28 % (24-48) Monocytes (%) (Auto) 6 % (0-9) Eosinophils (%) (Auto) 1 % (0-3) Basophils (%) (Auto) 0 % (0-3) Neutrophils # (Auto) 5.7 x10^3/uL (1.8-7.7) Lymphocytes # (Auto) 2.5 x10^3/uL (1.0-4.8) Monocytes # (Auto) 0.6 x10^3/uL (0.0-1.1) Eosinophils # (Auto) 0.1 x10^3/uL (0.0-0.7) Basophils # (Auto) 0.0 x10^3/uL (0.0-0.2) Sodium Level 144 mmol/L (136-145) Potassium Level 3.2 mmol/L (3.5-5.1) Chloride Level 107 mmol/L (98-107) Carbon Dioxide Level 27 mmol/L (21-32) Anion Gap 10 (6-14) Blood Urea Nitrogen 19 mg/dL (7-20) Creatinine 0.9 mg/dL (0.6-1.0) Estimated GFR (Cockcroft-Gault) 74.1 BUN/Creatinine Ratio 21 (6-20) Glucose Level 106 mg/dL (70-99) Calcium Level 8.4 mg/dL (8.5-10.1) Total Bilirubin 0.1 mg/dL (0.2-1.0) Aspartate Amino Transf (AST/SGOT) 23 U/L (15-37) Alanine Aminotransferase (ALT/SGPT) 23 U/L (14-59) Alkaline Phosphatase 82 U/L (46-116) Total Protein 6.1 g/dL (6.4-8.2) Albumin 3.3 g/dL (3.4-5.0) Albumin/Globulin Ratio 1.2 (1.0-1.7) Stool Occult Blood Positive (NEG) Laboratory Tests Test 09/04/19 16:25 09/04/19 16:30 White Blood Count 9.0 x10^3/uL (4.0-11.0) Red Blood Count 3.57 x10^6/uL (3.50-5.40) Hemoglobin 11.8 g/dL (12.0-15.5) Hematocrit 33.7 % (36.0-47.0) Mean Corpuscular Volume 94 fL (79-100) Mean Corpuscular Hemoglobin 33 pg (25-35) Mean Corpuscular Hemoglobin Concent 35 g/dL (31-37) Red Cell Distribution Width 15.2 % (11.5-14.5) Platelet Count 265 x10^3/uL (140-400) Neutrophils (%) (Auto) 64 % (31-73) Lymphocytes (%) (Auto) 28 % (24-48) Monocytes (%) (Auto) 6 % (0-9) Eosinophils (%) (Auto) 1 % (0-3) Basophils (%) (Auto) 0 % (0-3) Neutrophils # (Auto) 5.7 x10^3/uL (1.8-7.7) Lymphocytes # (Auto) 2.5 x10^3/uL (1.0-4.8) Monocytes # (Auto) 0.6 x10^3/uL (0.0-1.1) Eosinophils # (Auto) 0.1 x10^3/uL (0.0-0.7) Basophils # (Auto) 0.0 x10^3/uL (0.0-0.2) Sodium Level 144 mmol/L (136-145) Potassium Level 3.2 mmol/L (3.5-5.1) Chloride Level 107 mmol/L (98-107) Carbon Dioxide Level 27 mmol/L (21-32) Anion Gap 10 (6-14) Blood Urea Nitrogen 19 mg/dL (7-20) Creatinine 0.9 mg/dL (0.6-1.0) Estimated GFR (Cockcroft-Gault) 74.1 BUN/Creatinine Ratio 21 (6-20) Glucose Level 106 mg/dL (70-99) Calcium Level 8.4 mg/dL (8.5-10.1) Total Bilirubin 0.1 mg/dL (0.2-1.0) Aspartate Amino Transf (AST/SGOT) 23 U/L (15-37) Alanine Aminotransferase (ALT/SGPT) 23 U/L (14-59) Alkaline Phosphatase 82 U/L (46-116) Total Protein 6.1 g/dL (6.4-8.2) Albumin 3.3 g/dL (3.4-5.0) Albumin/Globulin Ratio 1.2 (1.0-1.7) Stool Occult Blood Positive (NEG) Images Images PROCEDURE Ultrasound abdomen complete. HISTORY Right upper quadrant pain and chest pain. TECHNIQUE Abdominal ultrasound was performed. COMPARISON None. FINDINGS The liver is normal in size and echotexture. The gallbladder is negative. The common bile duct is within normal limits at 4 millimeters. The visualized pancreas is unremarkable. The kidneys are without hydronephrosis or mass. Left kidney cortex is questionably mildly echogenic. There is poor acoustic window for evaluating the left kidney and spleen. There is atheromatous disease in the abdominal aorta without aneurysm. The spleen is not enlarged. IMPRESSION Questionable increased echogenicity of the left kidney, may be artifactual secondary to poor acoustic window. If a true finding, finding is nonspecific but can be associated with medicorenal disease. Electronically signed by: Roderick Morales MD (Nov 01, 2015 22:33:57) DICTATED and SIGNED BY: RODERICK MORALES MD DATE: 11/01/15 2233 CC: EDDIE STEPHENSON DO; HA LEMUS MD ~ Examination: CT CHEST W/CONTRAST History: COPD Comparison/Correlation: 02/07/2013 CTA chest abdomen and pelvis Findings: Axial images of the chest were obtained following IV contrast. Sagittal and coronal reformatted images were provided. Loculated pericardial effusion about the right ventricle is present measuring 1.1 cm anteroposterior by 6.8 cm transverse is similar to the prior CT exam. No enlarged thoracic lymph nodes. Thoracic aorta is unremarkable for the patient's age. There is a common trunk for the right brachiocephalic artery and the left common carotid artery. Centrilobular emphysema is present. No pneumothorax. No infiltrate. No suspicious pulmonary nodule. Bony structures are unremarkable for the patient's age. Disc osteophyte complex at T7-8 is noted with central protrusion Low-attenuation hepatic lesion measuring 0.9 cm diameter is present on axial image 57 of series 2 and may represent a cyst. This too small for characterization but has remained stable since 02/07/2013 CT exam. Diverticulosis of the partially visualized colon is noted. Impression: Centrilobular emphysema. No infiltrate. PQRS Compliance Statement: One or more of the following individualized dose reduction techniques were utilized for this examination: 1. Automated exposure control 2. Adjustment of the mA and/or kV according to patient size 3. Use of iterative reconstruction technique Electronically signed by: Blu Morales MD (01/27/2019 9:30 AM) [facility] VTE Prophylaxis Ordered VTE Prophylaxis Devices: Yes VTE Pharmacological Prophylaxi: Contraindicated Assessment/Plan Assessment/Plan impression Acute lower GI BLEEDING HX ugi bleeding 2017 by EGD copd Lower lumbar spondylosis, Melena Asthma Anemia of chronic disease Hypokalemia Positive stool occult History of intracranial aneurysm, remote, off plavix now Osteoarthritis Tobacco abuse disorder plan admit gi consult npo iv protonix drip home meds scd's IV FLUID SUPPORT H/H Q 8 HRS D/W ER DR Mcgeefation of Admission Dx: Justifications for Admission: Justification of Admission Dx: Yes FITO NUNEZ MD Sep 04, 2019 17:23
[2019-09-04] MEDS ORDERED: POTASSIUM CHLORIDE 20 MEQ TABLET.ER. PO ONE (17:30)
--- NOTE | 2019-09-04 17:43 | RAD ---
Exam performed: CT abdomen and pelvis from with contrast HISTORY: Rectal bleeding. DATE OF SERVICE: 09/04/2019. COMPARISON: CT abdomen and pelvis from December 08, [address] angiogram abdomen pelvis from 02/07/2013. TECHNIQUE: Contiguous o'clock positions are obtained through the abdomen and pelvis during intravenous administration of 75 cc of Omnipaque 300. Sagittal and coronal reformatted images are obtained and reviewed. FINDINGS: Lung bases are clear. The visualized heart is normal. Trace chronic pericardial effusion. Liver is normal in size and attenuation. Small low attenuating hepatic lesions likely cysts. The spleen and pancreas are normal. Gallbladder is distended. Both adrenal glands and bilateral kidneys are normal in size with symmetric excretion of contrast via both kidneys. Stomach distended with fluid and ingested material. Small bowel loops are nondilated and unremarkable. There is extensive atheromatous calcification of the aorta without aneurysm. The uterus is retroverted containing numerous calcifications likely fibroids. Spondylotic changes and multilevel disc degenerative changes are present. Impression: No acute intra-abdominal or pelvic process detected. Chronic changes as outlined above. PQRS Compliance Statement: One or more of the following individualized dose reduction techniques were utilized for this examination: 1. Automated exposure control 2. Adjustment of the mA and/or kV according to patient size 3. Use of iterative reconstruction technique Electronically signed by: Ayaka Joe MD (09/04/2019 5:40 PM) [facility]OSPITALJean Claude
[2019-09-04] MEDS: PANTOPRAZOLE SODIUM IV DRIP 80 MG in IV NORMAL SALINE 100ML 100 ML IV SCH (17:48)
[2019-09-04] MEDS: IV NORMAL SALINE 1000ML BAG 1,000 ML IV SCH (17:49)
--- NOTE | 2019-09-04 19:50 | NUR ---
ADMISSION NOTE: Patient arrived to room 656 via wheelchair accompanied by ED staff. Patient able to transfer self to bathroom and then hospital bed with minimal difficulty. Patient has arthritis in left hip so she limps. Bed low, locked, call light within reach. NPO. Will return to ask admission questionnaire after HS med pass.
--- NOTE | 2019-09-04 20:16 | EKG ---
[facility] [address] [place] [address] Test Date: 2019-09-04 Test Time: 16:44:18 Pat Name: KAMLA BABCOCK Department: Room: Gender: F [employer]: : 1945 Requested By: NELIDA HANSEN Order Number: [id number] Reading MD: Measurements Intervals [place] Rate: 75 P: 65 AK: 190 QRS: 56 QRSD: 72 T: 66 QT: 406 QTc: 456 Interpretive Statements SINUS RHYTHM LEFT ATRIAL ABNORMALITY ABNORMAL ECG RI6.01 No previous ECG available for comparison
[2019-09-04 20:43] VITALS: BP 157/86
[2019-09-04] MEDS ORDERED: MULT-658 PO (22:07)
[2019-09-04] MEDS ORDERED: PRAV10TA2 PO (22:07)
[2019-09-04] MEDS ORDERED: POTA10TA12 PO (22:07)
[2019-09-04] MEDS ORDERED: MELO15TA23 PO (22:07)
[2019-09-04] MEDS ORDERED: BUDE10.2 INH (22:09)
[2019-09-04] MEDS ORDERED: ACET500T33 PO (22:14)
[2019-09-04 22:25] LABS: HEMATOCRIT 31.3 % (36.0-47.0); HEMOGLOBIN 10.8 g/dL (12.0-15.5); RED BLOOD COUNT 3.28 x10^6/uL (3.50-5.40); RED CELL DISTRIBUTION WIDTH 15.1 % (11.5-14.5); WHITE BLOOD COUNT 9.8 x10^3/uL (4.0-11.0)
[2019-09-04 22:43] VITALS: BP 143/80
[2019-09-04] MEDS: ACETAMINOPHEN 500 MG TABLET PO PRN (22:52)
[2019-09-04] MEDS: ALBUTEROL SULFATE 2.5 MG/3 ML NEBU. NEB PRN (23:20)
[2019-09-05] VITALS (13 sets, daily range): BP systolic 78–177; BP diastolic 43–88
[2019-09-05] MEDS: PANTOPRAZOLE SODIUM IV DRIP 80 MG in IV NORMAL SALINE 100ML 100 ML IV SCH (04:02)
[2019-09-05 04:40] LABS: BASO % 0 % (0-3); EOS # 0.1 x10^3/uL (0.0-0.7); EOS % 2 % (0-3); HEMATOCRIT 30.5 % (36.0-47.0); HEMOGLOBIN 10.4 g/dL (12.0-15.5); LYMPH # 2.1 x10^3/uL (1.0-4.8); LYMPH % 28 % (24-48); MEAN CORPUSCULAR HEMOGLOBIN 33 pg (25-35); MEAN CORPUSCULAR HGB CONC 34 g/dL (31-37); MEAN CORPUSCULAR VOLUME 96 fL (79-100); MONO # 0.5 x10^3/uL (0.0-1.1); MONO % 6 % (0-9); NEUT # 4.9 x10^3/uL (1.8-7.7); NEUT % 64 % (31-73); PLATELET COUNT 224 x10^3/uL (140-400); RED BLOOD COUNT 3.19 x10^6/uL (3.50-5.40); RED CELL DISTRIBUTION WIDTH 15.4 % (11.5-14.5); WHITE BLOOD COUNT 7.6 x10^3/uL (4.0-11.0)
[2019-09-05 05:04] LABS: CALCIUM 8.1 mg/dL (8.5-10.1); CREATININE 0.9 mg/dL (0.6-1.0); GFR 74.1; POTASSIUM 3.1 mmol/L (3.5-5.1)
--- NOTE | 2019-09-05 07:50 | PDOC ---
[facility] PROGRESS NOTE Vitals/I&O Vitals/I&O: Vital Signs Date Time Temp Pulse Resp B/P (MAP) Pulse Ox O2 Delivery O2 Flow Rate FiO2 09/05/19 03:08 98.1 86 20 177/88 (117) 94 Room Air 98.1 I & O 09/04/19 09/04/19 09/05/19 15:00 23:00 07:00 Intake Total 500 ml Balance 500 ml Physical Exam General: Alert, Oriented X3, Cooperative, No acute distress Lungs: Clear, Other Abdomen: Normal bowel sounds, Soft Extremities: No cyanosis Labs Labs: Laboratory Tests Test 09/04/19 16:25 09/04/19 16:30 09/04/19 22:14 09/05/19 03:40 White Blood Count 9.0 x10^3/uL (4.0-11.0) 9.8 x10^3/uL (4.0-11.0) 7.6 x10^3/uL (4.0-11.0) Red Blood Count 3.57 x10^6/uL (3.50-5.40) 3.28 x10^6/uL (3.50-5.40) 3.19 x10^6/uL (3.50-5.40) Hemoglobin 11.8 g/dL (12.0-15.5) 10.8 g/dL (12.0-15.5) 10.4 g/dL (12.0-15.5) Hematocrit 33.7 % (36.0-47.0) 31.3 % (36.0-47.0) 30.5 % (36.0-47.0) Mean Corpuscular Volume 94 fL (79-100) 96 fL (79-100) 96 fL (79-100) Mean Corpuscular Hemoglobin 33 pg (25-35) 33 pg (25-35) 33 pg (25-35) Mean Corpuscular Hemoglobin Concent 35 g/dL (31-37) 34 g/dL (31-37) 34 g/dL (31-37) Red Cell Distribution Width 15.2 % (11.5-14.5) 15.1 % (11.5-14.5) 15.4 % (11.5-14.5) Platelet Count 265 x10^3/uL (140-400) 241 x10^3/uL (140-400) 224 x10^3/uL (140-400) Neutrophils (%) (Auto) 64 % (31-73) 64 % (31-73) Lymphocytes (%) (Auto) 28 % (24-48) 28 % (24-48) Monocytes (%) (Auto) 6 % (0-9) 6 % (0-9) Eosinophils (%) (Auto) 1 % (0-3) 2 % (0-3) Basophils (%) (Auto) 0 % (0-3) 0 % (0-3) Neutrophils # (Auto) 5.7 x10^3/uL (1.8-7.7) 4.9 x10^3/uL (1.8-7.7) Lymphocytes # (Auto) 2.5 x10^3/uL (1.0-4.8) 2.1 x10^3/uL (1.0-4.8) Monocytes # (Auto) 0.6 x10^3/uL (0.0-1.1) 0.5 x10^3/uL (0.0-1.1) Eosinophils # (Auto) 0.1 x10^3/uL (0.0-0.7) 0.1 x10^3/uL (0.0-0.7) Basophils # (Auto) 0.0 x10^3/uL (0.0-0.2) 0.0 x10^3/uL (0.0-0.2) Sodium Level 144 mmol/L (136-145) 146 mmol/L (136-145) Potassium Level 3.2 mmol/L (3.5-5.1) 3.1 mmol/L (3.5-5.1) Chloride Level 107 mmol/L (98-107) 111 mmol/L (98-107) Carbon Dioxide Level 27 mmol/L (21-32) 28 mmol/L (21-32) Anion Gap 10 (6-14) 7 (6-14) Blood Urea Nitrogen 19 mg/dL (7-20) 17 mg/dL (7-20) Creatinine 0.9 mg/dL (0.6-1.0) 0.9 mg/dL (0.6-1.0) Estimated GFR (Cockcroft-Gault) 74.1 74.1 BUN/Creatinine Ratio 21 (6-20) Glucose Level 106 mg/dL (70-99) 85 mg/dL (70-99) Calcium Level 8.4 mg/dL (8.5-10.1) 8.1 mg/dL (8.5-10.1) Total Bilirubin 0.1 mg/dL (0.2-1.0) Aspartate Amino Transf (AST/SGOT) 23 U/L (15-37) Alanine Aminotransferase (ALT/SGPT) 23 U/L (14-59) Alkaline Phosphatase 82 U/L (46-116) Total Protein 6.1 g/dL (6.4-8.2) Albumin 3.3 g/dL (3.4-5.0) Albumin/Globulin Ratio 1.2 (1.0-1.7) Stool Occult Blood Positive (NEG) Assessment and Plan Assessmemt and Plan Problems Medical Problems: (1) GI bleed Status: Acute Comment Review of Relevant I have reviewed the following items frieda (where applicable) has been applied. Medications: Current Medications Medications (Trade) Dose Ordered Sig/Ana Route PRN Reason Start Time Stop Time Status Last Admin Dose Admin Sodium Chloride 500 ml @ 500 mls/hr 1X ONCE IV 09/04/19 17:00 09/04/19 17:59 DC 09/04/19 17:07 Pantoprazole Sodium (PROTONIX VIAL for IV PUSH) 40 mg 1X ONCE IVP 09/04/19 17:00 09/04/19 17:01 DC 09/04/19 17:08 Potassium Chloride (Klor-Con) 20 meq 1X ONCE PO 09/04/19 17:30 09/04/19 17:31 DC 09/04/19 17:10 Sodium Chloride 1,000 ml @ 75 mls/hr [id number] IV 09/04/19 17:04 09/05/19 17:03 09/04/19 17:49 Iohexol (Omnipaque 300 Mg/ml) 75 ml 1X ONCE IV 09/04/19 17:15 09/04/19 17:16 DC 09/04/19 17:18 Pantoprazole Sodium 80 mg/ Sodium Chloride 100 ml @ 10 mls/hr Q10H IV 09/04/19 17:30 09/07/19 17:29 09/05/19 04:02 Acetaminophen (Tylenol) 1,000 mg PRN BID PRN PO MILD PAIN 1-3 09/04/19 22:45 09/04/19 22:52 Albuterol Sulfate (Ventolin Neb Soln) 2.5 mg PRN Q4HRS PRN NEB SHORTNESS OF BREATH 09/04/19 22:45 09/04/19 23:20 Justicifation of Admission Dx: Justifications for Admission: Justification of Admission Dx: Yes KENYATTA PENA MD Sep 05, 2019 07:50
[2019-09-05] MEDS ORDERED: MAGNESIUM SULFATE 2GM 50 ML IV PRN (08:00)
[2019-09-05] MEDS ORDERED: POTASSIUM BICARB 20 MEQ EFFERVESCENT TABLET. PO PRN (08:00)
[2019-09-05] MEDS ORDERED: POTASSIUM CHLORIDE 10MEQ 100 ML IV PRN ×2 (08:00)
[2019-09-05] MEDS ORDERED: MAGNESIUM OXIDE 400 MG TABLET PO PRN (09:00)
[2019-09-05] MEDS ORDERED: POTASSIUM & SODIUM PHOSPHATES PACKET. PO PRN (09:00)
[2019-09-05] MEDS: IV NORMAL SALINE 1000ML BAG 1,000 ML IV SCH (09:20)
--- NOTE | 2019-09-05 09:28 | PDOC2 ---
SAKINA ORTIZ 09/05/19 0928: GI CONSULT Reason For Consult: GI bleed HPI: HPI: 74 y/o female who we have seen in the past. Two episodes of hematochezia yesterday - first w/ brown stool, then felt sweaty and dizzy, then had another episode of just bleeding. Maybe very mild LLQ discomfort. No bleeding since admission. No reflux/heartburn, dysphagia, n/v, diarrhea, constipation, melena, or weight loss. EGD and colonoscopy in [address] Caceres showed atrophic gastritis, diverticulosis, hyperplastic polyps, and internal hemorrhoids. H/o dilated PD w/ borderline CBD and FH pancreatic cancer, normal CA19-9 in the past. H/o colon resection for polyps. No GB or PUD history. Daily Meloxicam for left hip pain, also daily ASA. PMH: PMH: HTN, COPD, anxiety/depression cranial aneurysm coiling, excision of chest lipoma, colon resection FH: Family History: Cancer (sister - pancreatic) Social History: Smoke: <1 pack per day ALCOHOL: occassional Drugs: None ROS: GEN: +sweats HEENT: Denies blurred vision, sore throat CV: Denies chest pain RESP: Denies shortness of air, cough GI: Per HPI : Denies hematuria, dysuria ENDO: Denies weight changes NEURO: Denies confusion, dizziness MSK: Denies weakness, joint pain/swelling SKIN: Denies jaundice, pruritus Vitals: Vitals: Vital Signs Date Time Temp Pulse Resp B/P (MAP) Pulse Ox O2 Delivery O2 Flow Rate FiO2 09/05/19 08:00 Room Air 09/05/19 07:52 98.5 81 18 150/83 (105) 93 98.5 Labs: Labs: Laboratory Tests Test 09/04/19 16:25 09/04/19 16:30 09/04/19 22:14 09/05/19 03:40 White Blood Count 9.0 x10^3/uL (4.0-11.0) 9.8 x10^3/uL (4.0-11.0) 7.6 x10^3/uL (4.0-11.0) Red Blood Count 3.57 x10^6/uL (3.50-5.40) 3.28 x10^6/uL (3.50-5.40) 3.19 x10^6/uL (3.50-5.40) Hemoglobin 11.8 g/dL (12.0-15.5) 10.8 g/dL (12.0-15.5) 10.4 g/dL (12.0-15.5) Hematocrit 33.7 % (36.0-47.0) 31.3 % (36.0-47.0) 30.5 % (36.0-47.0) Mean Corpuscular Volume 94 fL (79-100) 96 fL (79-100) 96 fL (79-100) Mean Corpuscular Hemoglobin 33 pg (25-35) 33 pg (25-35) 33 pg (25-35) Mean Corpuscular Hemoglobin Concent 35 g/dL (31-37) 34 g/dL (31-37) 34 g/dL (31-37) Red Cell Distribution Width 15.2 % (11.5-14.5) 15.1 % (11.5-14.5) 15.4 % (11.5-14.5) Platelet Count 265 x10^3/uL (140-400) 241 x10^3/uL (140-400) 224 x10^3/uL (140-400) Neutrophils (%) (Auto) 64 % (31-73) 64 % (31-73) Lymphocytes (%) (Auto) 28 % (24-48) 28 % (24-48) Monocytes (%) (Auto) 6 % (0-9) 6 % (0-9) Eosinophils (%) (Auto) 1 % (0-3) 2 % (0-3) Basophils (%) (Auto) 0 % (0-3) 0 % (0-3) Neutrophils # (Auto) 5.7 x10^3/uL (1.8-7.7) 4.9 x10^3/uL (1.8-7.7) Lymphocytes # (Auto) 2.5 x10^3/uL (1.0-4.8) 2.1 x10^3/uL (1.0-4.8) Monocytes # (Auto) 0.6 x10^3/uL (0.0-1.1) 0.5 x10^3/uL (0.0-1.1) Eosinophils # (Auto) 0.1 x10^3/uL (0.0-0.7) 0.1 x10^3/uL (0.0-0.7) Basophils # (Auto) 0.0 x10^3/uL (0.0-0.2) 0.0 x10^3/uL (0.0-0.2) Sodium Level 144 mmol/L (136-145) 146 mmol/L (136-145) Potassium Level 3.2 mmol/L (3.5-5.1) 3.1 mmol/L (3.5-5.1) Chloride Level 107 mmol/L (98-107) 111 mmol/L (98-107) Carbon Dioxide Level 27 mmol/L (21-32) 28 mmol/L (21-32) Anion Gap 10 (6-14) 7 (6-14) Blood Urea Nitrogen 19 mg/dL (7-20) 17 mg/dL (7-20) Creatinine 0.9 mg/dL (0.6-1.0) 0.9 mg/dL (0.6-1.0) Estimated GFR (Cockcroft-Gault) 74.1 74.1 BUN/Creatinine Ratio 21 (6-20) Glucose Level 106 mg/dL (70-99) 85 mg/dL (70-99) Calcium Level 8.4 mg/dL (8.5-10.1) 8.1 mg/dL (8.5-10.1) Total Bilirubin 0.1 mg/dL (0.2-1.0) Aspartate Amino Transf (AST/SGOT) 23 U/L (15-37) Alanine Aminotransferase (ALT/SGPT) 23 U/L (14-59) Alkaline Phosphatase 82 U/L (46-116) Total Protein 6.1 g/dL (6.4-8.2) Albumin 3.3 g/dL (3.4-5.0) Albumin/Globulin Ratio 1.2 (1.0-1.7) Stool Occult Blood Positive (NEG) Allergies: Coded Allergies: YVONNE Inhibitors (Verified Allergy, Severe, angioedema "my tongue swells", 02/07/17) doxycycline (Verified Allergy, Intermediate, n/v, 02/07/17) sulfamethoxazole (Verified Allergy, Intermediate, n/v, 02/07/17) trimethoprim (Verified Allergy, Intermediate, n/v, 02/07/17) Medications: Current Medications Medications (Trade) Dose Ordered Sig/Ana Route PRN Reason Start Time Stop Time Status Last Admin Dose Admin Sodium Chloride 500 ml @ 500 mls/hr 1X ONCE IV 09/04/19 17:00 09/04/19 17:59 DC 09/04/19 17:07 Pantoprazole Sodium (PROTONIX VIAL for IV PUSH) 40 mg 1X ONCE IVP 09/04/19 17:00 09/04/19 17:01 DC 09/04/19 17:08 Potassium Chloride (Klor-Con) 20 meq 1X ONCE PO 09/04/19 17:30 09/04/19 17:31 DC 09/04/19 17:10 Sodium Chloride 1,000 ml @ 75 mls/hr [id number] IV 09/04/19 17:04 09/05/19 17:03 09/05/19 09:20 Iohexol (Omnipaque 300 Mg/ml) 75 ml 1X ONCE IV 09/04/19 17:15 09/04/19 17:16 DC 09/04/19 17:18 Pantoprazole Sodium 80 mg/ Sodium Chloride 100 ml @ 10 mls/hr Q10H IV 09/04/19 17:30 09/07/19 17:29 09/05/19 04:02 Acetaminophen (Tylenol) 1,000 mg PRN BID PRN PO MILD PAIN 1-3 09/04/19 22:45 09/04/19 22:52 Albuterol Sulfate (Ventolin Neb Soln) 2.5 mg PRN Q4HRS PRN NEB SHORTNESS OF BREATH 09/04/19 22:45 09/04/19 23:20 Imaging: Imaging: CT A/P Impression: No acute intra-abdominal or pelvic process detected. Chronic changes as outlined above. PE: GEN: NAD HEENT: Atraumatic, PERRL LUNGS: CTAB HEART: RRR ABD: NABS, S/ND/NT EXTREMITY: No edema SKIN: No rashes, no jaundice NEURO/PSYCH: A & O 3 A/P: A/P: Hematochezia - resolving Anemia CRC screen - UTD Diverticulosis, hemorrhoids H/o dilated PD w/ borderline CBD, FH pancreatic cancer S/p colon resection for polyps ASA and Meloxicam use -- Suspect diverticular bleed. Try clears, ADAT. If rebleeds, check bleeding scan. Check anemia parameters for completeness. Stop PPI drip. JIM CACERES MD 09/05/19 1106: SAKINA ORTIZ Sep 05, 2019 09:28 JIM CACERES MD Sep 05, 2019 11:06
[2019-09-05] MEDS: PANTOPRAZOLE 40 MG TABLET.DR. PO SCH (12:26)
[2019-09-05] MEDS: POTASSIUM CHLORIDE 20 MEQ TABLET.ER. PO PRN (12:27)
[2019-09-05 14:19] LABS: HEMATOCRIT 31.6 % (36.0-47.0); HEMOGLOBIN 10.9 g/dL (12.0-15.5); RED BLOOD COUNT 3.29 x10^6/uL (3.50-5.40); RED CELL DISTRIBUTION WIDTH 15.5 % (11.5-14.5); WHITE BLOOD COUNT 6.4 x10^3/uL (4.0-11.0)
--- NOTE | 2019-09-05 14:34 | PDOC ---
[employer] PROGRESS NOTE Chief Complaint Chief Complaint Acute lower GI BLEEDING HX ugi bleeding 2017 by EGD copd Lower lumbar spondylosis, Melena Asthma Anemia of chronic disease Hypokalemia Positive stool occult History of intracranial aneurysm, remote, off plavix now Osteoarthritis Tobacco abuse disorder PLAN admit Appreciate GI recommendations Repeat hemoglobin in a.m. Clear liquid diet advance as tolerated iv protonix drip home meds scd's IV FLUID SUPPORT History of Present Illness History of Present Illness 74 year old female who presents with chief complaint of dizziness and rectal bleeding. // had rectal bleeding now for 2 or 3 large episodes filled the toilet bowl twice earlier today she felt dizzy she did not pass out she just felt weak. c/o dull left lower quadrant abdominal pain for this time. As well last colonoscopy was 2 years ago polyps were identified no other issues noted. 3 years ago she did have rectal melena related to gastritis in the setting of blood thinners are being used after a she tells me she had an aneurysm. That is all she is recovered from that now. Patient does smoke cigarettes denies alcohol. normal CA19-9 in 2012. gastritis seen on egd in 2017 hgb in ER =11 09/05/2019 Patient seen and examined bedside today. Patient is rectal bleeding has stopped and her abdominal pain has improved. Patient seen with GI. Recommended to advance diet as tolerated and if there is no further bleeding to be follow-up as an outpatient. Vitals/I&O Vitals/I&O: Vital Signs Date Time Temp Pulse Resp B/P (MAP) Pulse Ox O2 Delivery O2 Flow Rate FiO2 09/05/19 11:21 98.0 81 18 149/86 (107) 95 Room Air 98.0 I & O 09/04/19 09/04/19 09/05/19 15:00 23:00 07:00 Intake Total 500 ml Balance 500 ml Physical Exam Physical Exam: GEN: No apparent distress. Alert and oriented HEENT: Normal cephalic, atraumatic, external auditory canals are patent NECK: Supple, no JVD, no thyromegaly was noted LUNGS: Bilateral crackles HEART: RRR, S1, S2 present. Peripheral pulses intact, no obvious murmurs noted ABDOMEN: Soft, nontender. Positive bowel sounds, no organomegaly, normal bowel sounds EXTREMITIES: Without clubbing, cyanosis, or edema. Pedal pulses intact. Negative Homans sign General: Alert, Oriented X3, Cooperative, No acute distress Lungs: Clear, Other Abdomen: Normal bowel sounds, Soft Extremities: No cyanosis Labs Labs: Laboratory Tests Test 09/04/19 16:25 09/04/19 16:30 09/04/19 22:14 09/05/19 03:40 White Blood Count 9.0 x10^3/uL (4.0-11.0) 9.8 x10^3/uL (4.0-11.0) 7.6 x10^3/uL (4.0-11.0) Red Blood Count 3.57 x10^6/uL (3.50-5.40) 3.28 x10^6/uL (3.50-5.40) 3.19 x10^6/uL (3.50-5.40) Hemoglobin 11.8 g/dL (12.0-15.5) 10.8 g/dL (12.0-15.5) 10.4 g/dL (12.0-15.5) Hematocrit 33.7 % (36.0-47.0) 31.3 % (36.0-47.0) 30.5 % (36.0-47.0) Mean Corpuscular Volume 94 fL (79-100) 96 fL (79-100) 96 fL (79-100) Mean Corpuscular Hemoglobin 33 pg (25-35) 33 pg (25-35) 33 pg (25-35) Mean Corpuscular Hemoglobin Concent 35 g/dL (31-37) 34 g/dL (31-37) 34 g/dL (31-37) Red Cell Distribution Width 15.2 % (11.5-14.5) 15.1 % (11.5-14.5) 15.4 % (11.5-14.5) Platelet Count 265 x10^3/uL (140-400) 241 x10^3/uL (140-400) 224 x10^3/uL (140-400) Neutrophils (%) (Auto) 64 % (31-73) 64 % (31-73) Lymphocytes (%) (Auto) 28 % (24-48) 28 % (24-48) Monocytes (%) (Auto) 6 % (0-9) 6 % (0-9) Eosinophils (%) (Auto) 1 % (0-3) 2 % (0-3) Basophils (%) (Auto) 0 % (0-3) 0 % (0-3) Neutrophils # (Auto) 5.7 x10^3/uL (1.8-7.7) 4.9 x10^3/uL (1.8-7.7) Lymphocytes # (Auto) 2.5 x10^3/uL (1.0-4.8) 2.1 x10^3/uL (1.0-4.8) Monocytes # (Auto) 0.6 x10^3/uL (0.0-1.1) 0.5 x10^3/uL (0.0-1.1) Eosinophils # (Auto) 0.1 x10^3/uL (0.0-0.7) 0.1 x10^3/uL (0.0-0.7) Basophils # (Auto) 0.0 x10^3/uL (0.0-0.2) 0.0 x10^3/uL (0.0-0.2) Sodium Level 144 mmol/L (136-145) 146 mmol/L (136-145) Potassium Level 3.2 mmol/L (3.5-5.1) 3.1 mmol/L (3.5-5.1) Chloride Level 107 mmol/L (98-107) 111 mmol/L (98-107) Carbon Dioxide Level 27 mmol/L (21-32) 28 mmol/L (21-32) Anion Gap 10 (6-14) 7 (6-14) Blood Urea Nitrogen 19 mg/dL (7-20) 17 mg/dL (7-20) Creatinine 0.9 mg/dL (0.6-1.0) 0.9 mg/dL (0.6-1.0) Estimated GFR (Cockcroft-Gault) 74.1 74.1 BUN/Creatinine Ratio 21 (6-20) Glucose Level 106 mg/dL (70-99) 85 mg/dL (70-99) Calcium Level 8.4 mg/dL (8.5-10.1) 8.1 mg/dL (8.5-10.1) Total Bilirubin 0.1 mg/dL (0.2-1.0) Aspartate Amino Transf (AST/SGOT) 23 U/L (15-37) Alanine Aminotransferase (ALT/SGPT) 23 U/L (14-59) Alkaline Phosphatase 82 U/L (46-116) Total Protein 6.1 g/dL (6.4-8.2) Albumin 3.3 g/dL (3.4-5.0) Albumin/Globulin Ratio 1.2 (1.0-1.7) Stool Occult Blood Positive (NEG) Iron Level 58 ug/dL (50-170) Total Iron Binding Capacity 187 ug/dL (250-450) Iron Saturation 31 % (15-34) Vitamin B12 Level 347 pg/mL (247-911) Test 09/05/19 13:55 White Blood Count 6.4 x10^3/uL (4.0-11.0) Red Blood Count 3.29 x10^6/uL (3.50-5.40) Hemoglobin 10.9 g/dL (12.0-15.5) Hematocrit 31.6 % (36.0-47.0) Mean Corpuscular Volume 96 fL (79-100) Mean Corpuscular Hemoglobin 33 pg (25-35) Mean Corpuscular Hemoglobin Concent 35 g/dL (31-37) Red Cell Distribution Width 15.5 % (11.5-14.5) Platelet Count 245 x10^3/uL (140-400) Review of Systems Review of Systems: CONSTITUIONAL: Denies weight loss, fever and chills. HEENT: Denies changes in vision and hearing. RESPIRATORY: Denies SOB and cough. CV: Denies palpitations and CP. GI: Denies abdominal pain, nausea, vomiting and diarrhea. : Denies dysuria and urinary frequency. MSK: Denies myalgia and joint pain. SKIN: Denies rash and pruritus. NEUROLOGICAL: Denies headache and syncope. PSYCHIATRIC: Denies recent changes in mood. Denies anxiety and depression. Assessment and Plan Assessmemt and Plan Problems Medical Problems: (1) GI bleed Status: Acute Comment Review of Relevant I have reviewed the following items frieda (where applicable) has been applied. Medications: Current Medications Medications (Trade) Dose Ordered Sig/Ana Route PRN Reason Start Time Stop Time Status Last Admin Dose Admin Sodium Chloride 500 ml @ 500 mls/hr 1X ONCE IV 09/04/19 17:00 09/04/19 17:59 DC 09/04/19 17:07 Pantoprazole Sodium (PROTONIX VIAL for IV PUSH) 40 mg 1X ONCE IVP 09/04/19 17:00 09/05/19 11:04 DC 09/04/19 17:08 Potassium Chloride (Klor-Con) 20 meq 1X ONCE PO 09/04/19 17:30 09/04/19 17:31 DC 09/04/19 17:10 Sodium Chloride 1,000 ml @ 75 mls/hr [id number] IV 09/04/19 17:04 09/05/19 17:03 09/05/19 09:20 Iohexol (Omnipaque 300 Mg/ml) 75 ml 1X ONCE IV 09/04/19 17:15 09/04/19 17:16 DC 09/04/19 17:18 Pantoprazole Sodium 80 mg/ Sodium Chloride 100 ml @ 10 mls/hr Q10H IV 09/04/19 17:30 09/05/19 11:06 DC 09/05/19 04:02 Acetaminophen (Tylenol) 1,000 mg PRN BID PRN PO MILD PAIN 1-3 09/04/19 22:45 09/04/19 22:52 Albuterol Sulfate (Ventolin Neb Soln) 2.5 mg PRN Q4HRS PRN NEB SHORTNESS OF BREATH 09/04/19 22:45 09/04/19 23:20 Potassium Chloride (Klor-Con) 40 meq PRN 1X PRN PO PER PROTOCOL 09/05/19 08:00 09/05/19 12:27 Pantoprazole Sodium (Protonix) 40 mg DAILYAC PO 09/05/19 11:30 09/05/19 12:26 Justicifation of Admission Dx: Justifications for Admission: Justification of Admission Dx: Yes KENYATTA PENA MD Sep 05, 2019 14:34
--- NOTE | 2019-09-05 15:40 | NUR ---
Patient had 2 bloody stools, the first one in toilet, clots noted with second in bedside commode. Notified Ashwini Navarro, was going to notify Dr Caceres, order bleeding scan.
--- NOTE | 2019-09-05 15:55 | NUR ---
Pt had mod amount bloody clots in bedside commode, (nurse with pt) c/o onset of feeling faint, sweaty. Patient returned to bed, supine. BP 82/51, which was a significant change. Rapid response was initiated, Dr Oswald murray, returned call, coming to unit. BP rechecked, was 78/46. IV NS bolus was initiated at 999ml/hr. Second IV access placed in right forearm with #20. Patient instructed not to get out of bed (has bedpan at bedside, pt thought she needed to have another bm, but no results) EKG was obtained
--- NOTE | 2019-09-05 16:30 | NUR ---
Patient related that she was feeling better, does not feel faint. BP 133/[address] Akers has been in to see patient, pt will remain on 6th floor at this time, continue to monitor. Patient was returned to NPO status.
--- NOTE | 2019-09-05 16:45 | NUR ---
MIRYAM following. Spoke with RN and CM. Reviewed chart and spoke with Dr. Akers. Pt listed as self-pay but might have [employer] benefits from her spouse. MIRYAM LVM for [facility] to check on VA benefits. Pt from home. Pt on room air and oral medications. MIRYAM to continue following. Addendum: 09/05/19 at 1646 by MOISE WITT Note entered in error. Wrong patient.
--- NOTE | 2019-09-05 16:46 | NUR ---
SW following. Spoke with RN and CM. Reviewed chart and spoke with Dr. Akers. Pt's spouse at bedside. Pt from home and plans to return at discharge. Pt on room air and oral medications. SW to continue following.
[2019-09-05 17:24] LABS: BASO # 0.1 x10^3/uL (0.0-0.2); BASO % 1 % (0-3); EOS # 0.1 x10^3/uL (0.0-0.7); EOS % 1 % (0-3); HEMATOCRIT 26.9 % (36.0-47.0); HEMOGLOBIN 9.5 g/dL (12.0-15.5); LYMPH # 1.4 x10^3/uL (1.0-4.8); LYMPH % 15 % (24-48); MEAN CORPUSCULAR HEMOGLOBIN 34 pg (25-35); MEAN CORPUSCULAR HGB CONC 35 g/dL (31-37); MEAN CORPUSCULAR VOLUME 96 fL (79-100); MONO # 0.5 x10^3/uL (0.0-1.1); MONO % 5 % (0-9); NEUT # 7.4 x10^3/uL (1.8-7.7); NEUT % 78 % (31-73); PLATELET COUNT 203 x10^3/uL (140-400); RED CELL DISTRIBUTION WIDTH 15.4 % (11.5-14.5); WHITE BLOOD COUNT 9.5 x10^3/uL (4.0-11.0)
[2019-09-05 17:33] LABS: PROTHROMBIN TIME PATIENT 14.6 SEC (11.7-14.0)
[2019-09-05 17:38] LABS: CALCIUM 7.4 mg/dL (8.5-10.1); CREATININE 0.8 mg/dL (0.6-1.0); GFR 84.8; POTASSIUM 3.2 mmol/L (3.5-5.1)
[2019-09-05 17:44] LABS: ALBUMIN 2.8 g/dL (3.4-5.0); ALBUMIN/GLOBULIN RATIO 1.2 (1.0-1.7); TOTAL BILIRUBIN 0.2 mg/dL (0.2-1.0); TOTAL PROTEIN 5.2 g/dL (6.4-8.2)
[2019-09-05] MEDS ORDERED: HEPARIN for NUC MED 500 UNIT/5 ML DISP.SYRIN. IV ONE (18:15)
[2019-09-05] MEDS: ACETAMINOPHEN 500 MG TABLET PO PRN (19:32)
--- NOTE | 2019-09-05 20:09 | RAD ---
INDICATION: Reason: hematochezia / Spl. Instructions: / History: COMPARISON: CT abdomen from one day prior FINDINGS: 30 mCi of technetium 99m tagged red blood cells were injected followed by scintigraphic images of the abdomen and pelvis. There is expected radiotracer distribution within the vasculature as well as the liver and spleen. There is also urinary tract activity identified. A definite region of abnormal increase in radiotracer activity within the bowel is not seen on this exam. IMPRESSION: * The site of the patient's known gastrointestinal bleeding is not localized on this examination. This could be secondary to the patient not having an episode of bleeding during the time of examination. If the patient has a repeat bout of bleeding either delayed images could be obtained at that time or repeat exam could be obtained in order to attempt to localize the site of gastrointestinal bleeding. Electronically signed by: Gagan Good MD (09/05/2019 8:06 PM) [id number]
[2019-09-05] MEDS ORDERED: IV NORMAL SALINE 1000ML BAG 1,000 ML IV ONE (21:30)
[2019-09-06 03:15] VITALS: BP 115/46
[2019-09-06 06:02] LABS: HEMATOCRIT 24.2 % (36.0-47.0); HEMOGLOBIN 8.1 g/dL (12.0-15.5); RED BLOOD COUNT 2.51 x10^6/uL (3.50-5.40); RED CELL DISTRIBUTION WIDTH 15.1 % (11.5-14.5)
[2019-09-06 07:00] VITALS: BP 119/70
[2019-09-06] MEDS ORDERED: POTASSIUM CHLORIDE 20 MEQ TABLET.ER. PO PRN (08:30)
[2019-09-06] MEDS ORDERED: MAGNESIUM SULFATE 2GM 50 ML IV PRN (08:30)
[2019-09-06] MEDS ORDERED: POTASSIUM CHLORIDE 10MEQ 100 ML IV SCH (08:30)
[2019-09-06] MEDS ORDERED: POTASSIUM CHLORIDE 10MEQ 100 ML IV PRN (08:30)
[2019-09-06] MEDS ORDERED: POTASSIUM BICARB 20 MEQ EFFERVESCENT TABLET. PO PRN (08:30)
[2019-09-06] MEDS ORDERED: MAGNESIUM OXIDE 400 MG TABLET PO PRN (09:00)
[2019-09-06] MEDS ORDERED: POTASSIUM & SODIUM PHOSPHATES PACKET. PO PRN (09:00)
[2019-09-06] MEDS: PANTOPRAZOLE 40 MG TABLET.DR. PO SCH (09:21)
[2019-09-06] MEDS: ACETAMINOPHEN 500 MG TABLET PO PRN ×2 (09:23→16:47)
[2019-09-06 11:20] VITALS: BP 107/69
--- NOTE | 2019-09-06 12:36 | PDOC ---
[employer] PROGRESS NOTE Chief Complaint Chief Complaint Acute lower GI BLEEDING Acute anemia secondary to GI bleeding Acute hypotensive episode secondary to GI bleedingresolved HX ugi bleeding 2017 by EGD copd Lower lumbar spondylosis, Melena Asthma Anemia of chronic disease Hypokalemia Positive stool occult History of intracranial aneurysm, remote, off plavix now Osteoarthritis Tobacco abuse disorder PLAN Continue IV fluids Trend H&H Continue monitoring on telemetry Appreciate GI recommendations Keep n.p.o. for now iv protonix drip home meds SCD or DVT prophylaxis Full code Discussed with RN and SW Dispo pending GI recommendations. History of Present Illness History of Present Illness 74 year old female who presents with chief complaint of dizziness and rectal bleeding. // had rectal bleeding now for 2 or 3 large episodes filled the toilet bowl twice earlier today she felt dizzy she did not pass out she just felt weak. c/o dull left lower quadrant abdominal pain for this time. As well last colonoscopy was 2 years ago polyps were identified no other issues noted. 3 years ago she did have rectal melena related to gastritis in the setting of blood thinners are being used after a she tells me she had an aneurysm. That is all she is recovered from that now. Patient does smoke cigarettes denies alcohol. normal CA19-9 in 2013. gastritis seen on egd in 2017 hgb in ER =11 09/05/2019 Patient seen and examined bedside today. Patient is rectal bleeding has stopped and her abdominal pain has improved. Patient seen with GI. Recommended to advance diet as tolerated and if there is no further bleeding to be follow-up as an outpatient. Vitals/I&O Vitals/I&O: Vital Signs Date Time Temp Pulse Resp B/P (MAP) Pulse Ox O2 Delivery O2 Flow Rate FiO2 09/06/19 11:20 98.1 86 17 107/69 (82) 99 Room Air 98.1 09/05/19 23:18 2.0 I & O 09/05/19 09/05/19 09/06/19 15:00 23:00 07:00 Intake Total 50 ml 1400 ml 100 ml Output Total 200 ml Balance 50 ml 1200 ml 100 ml Physical Exam Physical Exam: GEN: No apparent distress. Alert and oriented HEENT: Normal cephalic, atraumatic, external auditory canals are patent NECK: Supple, no JVD, no thyromegaly was noted LUNGS: Bilateral crackles HEART: RRR, S1, S2 present. Peripheral pulses intact, no obvious murmurs noted ABDOMEN: Soft, nontender. Positive bowel sounds, no organomegaly, normal bowel sounds EXTREMITIES: Without clubbing, cyanosis, or edema. Pedal pulses intact. Negative Homans sign General: Alert, Oriented X3, Cooperative, No acute distress Lungs: Clear, Other Abdomen: Normal bowel sounds, Soft Extremities: No cyanosis Labs Labs: Laboratory Tests Test 09/05/19 13:55 09/05/19 16:02 09/05/19 17:10 09/06/19 05:00 White Blood Count 6.4 x10^3/uL (4.0-11.0) 9.5 x10^3/uL (4.0-11.0) 7.0 x10^3/uL (4.0-11.0) Red Blood Count 3.29 x10^6/uL (3.50-5.40) 2.80 x10^6/uL (3.50-5.40) 2.51 x10^6/uL (3.50-5.40) Hemoglobin 10.9 g/dL (12.0-15.5) 9.5 g/dL (12.0-15.5) 8.1 g/dL (12.0-15.5) Hematocrit 31.6 % (36.0-47.0) 26.9 % (36.0-47.0) 24.2 % (36.0-47.0) Mean Corpuscular Volume 96 fL (79-100) 96 fL (79-100) 97 fL (79-100) Mean Corpuscular Hemoglobin 33 pg (25-35) 34 pg (25-35) 32 pg (25-35) Mean Corpuscular Hemoglobin Concent 35 g/dL (31-37) 35 g/dL (31-37) 33 g/dL (31-37) Red Cell Distribution Width 15.5 % (11.5-14.5) 15.4 % (11.5-14.5) 15.1 % (11.5-14.5) Platelet Count 245 x10^3/uL (140-400) 203 x10^3/uL (140-400) 203 x10^3/uL (140-400) Glucose (Fingerstick) 82 mg/dL (70-99) Neutrophils (%) (Auto) 78 % (31-73) Lymphocytes (%) (Auto) 15 % (24-48) Monocytes (%) (Auto) 5 % (0-9) Eosinophils (%) (Auto) 1 % (0-3) Basophils (%) (Auto) 1 % (0-3) Neutrophils # (Auto) 7.4 x10^3/uL (1.8-7.7) Lymphocytes # (Auto) 1.4 x10^3/uL (1.0-4.8) Monocytes # (Auto) 0.5 x10^3/uL (0.0-1.1) Eosinophils # (Auto) 0.1 x10^3/uL (0.0-0.7) Basophils # (Auto) 0.1 x10^3/uL (0.0-0.2) Prothrombin Time 14.6 SEC (11.7-14.0) Prothromb Time International Ratio 1.2 (0.8-1.1) Sodium Level 146 mmol/L (136-145) Potassium Level 3.2 mmol/L (3.5-5.1) Chloride Level 112 mmol/L (98-107) Carbon Dioxide Level 25 mmol/L (21-32) Anion Gap 9 (6-14) Blood Urea Nitrogen 11 mg/dL (7-20) Creatinine 0.8 mg/dL (0.6-1.0) Estimated GFR (Cockcroft-Gault) 84.8 BUN/Creatinine Ratio 14 (6-20) Glucose Level 79 mg/dL (70-99) Calcium Level 7.4 mg/dL (8.5-10.1) Total Bilirubin 0.2 mg/dL (0.2-1.0) Aspartate Amino Transf (AST/SGOT) 17 U/L (15-37) Alanine Aminotransferase (ALT/SGPT) 21 U/L (14-59) Alkaline Phosphatase 62 U/L (46-116) Total Protein 5.2 g/dL (6.4-8.2) Albumin 2.8 g/dL (3.4-5.0) Albumin/Globulin Ratio 1.2 (1.0-1.7) Phosphorus Level 4.1 mg/dL (2.6-4.7) Review of Systems Review of Systems: CONSTITUIONAL: Denies weight loss, fever and chills. HEENT: Denies changes in vision and hearing. RESPIRATORY: Denies SOB and cough. CV: Denies palpitations and CP. GI: Denies abdominal pain, nausea, vomiting and diarrhea. : Denies dysuria and urinary frequency. MSK: Denies myalgia and joint pain. SKIN: Denies rash and pruritus. NEUROLOGICAL: Denies headache and syncope. PSYCHIATRIC: Denies recent changes in mood. Denies anxiety and depression. Assessment and Plan Assessmemt and Plan Problems Medical Problems: (1) GI bleed Status: Acute Comment Review of Relevant I have reviewed the following items frieda (where applicable) has been applied. Justicifation of Admission Dx: Justifications for Admission: Justification of Admission Dx: Yes KENYATTA PENA MD Sep 06, 2019 12:36
--- NOTE | 2019-09-06 13:01 | PDOC ---
G I PROGRESS NOTE Reason for Follow-up Hematochezia Subjective Hungry/no further BMS Physical Exam Lungs clear 'CV S1 S2 ABD +BS, soft, nontender Review of Relevant I have reviewed the following items frieda (where applicable) has been applied. Labs Laboratory Tests Test 09/04/19 16:25 09/04/19 16:30 09/04/19 22:14 09/05/19 03:40 White Blood Count 9.0 x10^3/uL (4.0-11.0) 9.8 x10^3/uL (4.0-11.0) 7.6 x10^3/uL (4.0-11.0) Red Blood Count 3.57 x10^6/uL (3.50-5.40) 3.28 x10^6/uL (3.50-5.40) 3.19 x10^6/uL (3.50-5.40) Hemoglobin 11.8 g/dL (12.0-15.5) 10.8 g/dL (12.0-15.5) 10.4 g/dL (12.0-15.5) Hematocrit 33.7 % (36.0-47.0) 31.3 % (36.0-47.0) 30.5 % (36.0-47.0) Mean Corpuscular Volume 94 fL (79-100) 96 fL (79-100) 96 fL (79-100) Mean Corpuscular Hemoglobin 33 pg (25-35) 33 pg (25-35) 33 pg (25-35) Mean Corpuscular Hemoglobin Concent 35 g/dL (31-37) 34 g/dL (31-37) 34 g/dL (31-37) Red Cell Distribution Width 15.2 % (11.5-14.5) 15.1 % (11.5-14.5) 15.4 % (11.5-14.5) Platelet Count 265 x10^3/uL (140-400) 241 x10^3/uL (140-400) 224 x10^3/uL (140-400) Neutrophils (%) (Auto) 64 % (31-73) 64 % (31-73) Lymphocytes (%) (Auto) 28 % (24-48) 28 % (24-48) Monocytes (%) (Auto) 6 % (0-9) 6 % (0-9) Eosinophils (%) (Auto) 1 % (0-3) 2 % (0-3) Basophils (%) (Auto) 0 % (0-3) 0 % (0-3) Neutrophils # (Auto) 5.7 x10^3/uL (1.8-7.7) 4.9 x10^3/uL (1.8-7.7) Lymphocytes # (Auto) 2.5 x10^3/uL (1.0-4.8) 2.1 x10^3/uL (1.0-4.8) Monocytes # (Auto) 0.6 x10^3/uL (0.0-1.1) 0.5 x10^3/uL (0.0-1.1) Eosinophils # (Auto) 0.1 x10^3/uL (0.0-0.7) 0.1 x10^3/uL (0.0-0.7) Basophils # (Auto) 0.0 x10^3/uL (0.0-0.2) 0.0 x10^3/uL (0.0-0.2) Sodium Level 144 mmol/L (136-145) 146 mmol/L (136-145) Potassium Level 3.2 mmol/L (3.5-5.1) 3.1 mmol/L (3.5-5.1) Chloride Level 107 mmol/L (98-107) 111 mmol/L (98-107) Carbon Dioxide Level 27 mmol/L (21-32) 28 mmol/L (21-32) Anion Gap 10 (6-14) 7 (6-14) Blood Urea Nitrogen 19 mg/dL (7-20) 17 mg/dL (7-20) Creatinine 0.9 mg/dL (0.6-1.0) 0.9 mg/dL (0.6-1.0) Estimated GFR (Cockcroft-Gault) 74.1 74.1 BUN/Creatinine Ratio 21 (6-20) Glucose Level 106 mg/dL (70-99) 85 mg/dL (70-99) Calcium Level 8.4 mg/dL (8.5-10.1) 8.1 mg/dL (8.5-10.1) Total Bilirubin 0.1 mg/dL (0.2-1.0) Aspartate Amino Transf (AST/SGOT) 23 U/L (15-37) Alanine Aminotransferase (ALT/SGPT) 23 U/L (14-59) Alkaline Phosphatase 82 U/L (46-116) Total Protein 6.1 g/dL (6.4-8.2) Albumin 3.3 g/dL (3.4-5.0) Albumin/Globulin Ratio 1.2 (1.0-1.7) Stool Occult Blood Positive (NEG) Iron Level 58 ug/dL (50-170) Total Iron Binding Capacity 187 ug/dL (250-450) Iron Saturation 31 % (15-34) Vitamin B12 Level 347 pg/mL (247-911) Test 09/05/19 13:55 09/05/19 16:02 09/05/19 17:10 09/06/19 05:00 White Blood Count 6.4 x10^3/uL (4.0-11.0) 9.5 x10^3/uL (4.0-11.0) 7.0 x10^3/uL (4.0-11.0) Red Blood Count 3.29 x10^6/uL (3.50-5.40) 2.80 x10^6/uL (3.50-5.40) 2.51 x10^6/uL (3.50-5.40) Hemoglobin 10.9 g/dL (12.0-15.5) 9.5 g/dL (12.0-15.5) 8.1 g/dL (12.0-15.5) Hematocrit 31.6 % (36.0-47.0) 26.9 % (36.0-47.0) 24.2 % (36.0-47.0) Mean Corpuscular Volume 96 fL (79-100) 96 fL (79-100) 97 fL (79-100) Mean Corpuscular Hemoglobin 33 pg (25-35) 34 pg (25-35) 32 pg (25-35) Mean Corpuscular Hemoglobin Concent 35 g/dL (31-37) 35 g/dL (31-37) 33 g/dL (31-37) Red Cell Distribution Width 15.5 % (11.5-14.5) 15.4 % (11.5-14.5) 15.1 % (11.5-14.5) Platelet Count 245 x10^3/uL (140-400) 203 x10^3/uL (140-400) 203 x10^3/uL (140-400) Glucose (Fingerstick) 82 mg/dL (70-99) Neutrophils (%) (Auto) 78 % (31-73) Lymphocytes (%) (Auto) 15 % (24-48) Monocytes (%) (Auto) 5 % (0-9) Eosinophils (%) (Auto) 1 % (0-3) Basophils (%) (Auto) 1 % (0-3) Neutrophils # (Auto) 7.4 x10^3/uL (1.8-7.7) Lymphocytes # (Auto) 1.4 x10^3/uL (1.0-4.8) Monocytes # (Auto) 0.5 x10^3/uL (0.0-1.1) Eosinophils # (Auto) 0.1 x10^3/uL (0.0-0.7) Basophils # (Auto) 0.1 x10^3/uL (0.0-0.2) Prothrombin Time 14.6 SEC (11.7-14.0) Prothromb Time International Ratio 1.2 (0.8-1.1) Sodium Level 146 mmol/L (136-145) Potassium Level 3.2 mmol/L (3.5-5.1) Chloride Level 112 mmol/L (98-107) Carbon Dioxide Level 25 mmol/L (21-32) Anion Gap 9 (6-14) Blood Urea Nitrogen 11 mg/dL (7-20) Creatinine 0.8 mg/dL (0.6-1.0) Estimated GFR (Cockcroft-Gault) 84.8 BUN/Creatinine Ratio 14 (6-20) Glucose Level 79 mg/dL (70-99) Calcium Level 7.4 mg/dL (8.5-10.1) Total Bilirubin 0.2 mg/dL (0.2-1.0) Aspartate Amino Transf (AST/SGOT) 17 U/L (15-37) Alanine Aminotransferase (ALT/SGPT) 21 U/L (14-59) Alkaline Phosphatase 62 U/L (46-116) Total Protein 5.2 g/dL (6.4-8.2) Albumin 2.8 g/dL (3.4-5.0) Albumin/Globulin Ratio 1.2 (1.0-1.7) Phosphorus Level 4.1 mg/dL (2.6-4.7) Test 09/06/19 12:40 Hemoglobin 8.1 g/dL (12.0-15.5) Laboratory Tests Test 09/05/19 13:55 09/05/19 16:02 09/05/19 17:10 09/06/19 05:00 White Blood Count 6.4 x10^3/uL (4.0-11.0) 9.5 x10^3/uL (4.0-11.0) 7.0 x10^3/uL (4.0-11.0) Red Blood Count 3.29 x10^6/uL (3.50-5.40) 2.80 x10^6/uL (3.50-5.40) 2.51 x10^6/uL (3.50-5.40) Hemoglobin 10.9 g/dL (12.0-15.5) 9.5 g/dL (12.0-15.5) 8.1 g/dL (12.0-15.5) Hematocrit 31.6 % (36.0-47.0) 26.9 % (36.0-47.0) 24.2 % (36.0-47.0) Mean Corpuscular Volume 96 fL (79-100) 96 fL (79-100) 97 fL (79-100) Mean Corpuscular Hemoglobin 33 pg (25-35) 34 pg (25-35) 32 pg (25-35) Mean Corpuscular Hemoglobin Concent 35 g/dL (31-37) 35 g/dL (31-37) 33 g/dL (31-37) Red Cell Distribution Width 15.5 % (11.5-14.5) 15.4 % (11.5-14.5) 15.1 % (11.5-14.5) Platelet Count 245 x10^3/uL (140-400) 203 x10^3/uL (140-400) 203 x10^3/uL (140-400) Glucose (Fingerstick) 82 mg/dL (70-99) Neutrophils (%) (Auto) 78 % (31-73) Lymphocytes (%) (Auto) 15 % (24-48) Monocytes (%) (Auto) 5 % (0-9) Eosinophils (%) (Auto) 1 % (0-3) Basophils (%) (Auto) 1 % (0-3) Neutrophils # (Auto) 7.4 x10^3/uL (1.8-7.7) Lymphocytes # (Auto) 1.4 x10^3/uL (1.0-4.8) Monocytes # (Auto) 0.5 x10^3/uL (0.0-1.1) Eosinophils # (Auto) 0.1 x10^3/uL (0.0-0.7) Basophils # (Auto) 0.1 x10^3/uL (0.0-0.2) Prothrombin Time 14.6 SEC (11.7-14.0) Prothromb Time International Ratio 1.2 (0.8-1.1) Sodium Level 146 mmol/L (136-145) Potassium Level 3.2 mmol/L (3.5-5.1) Chloride Level 112 mmol/L (98-107) Carbon Dioxide Level 25 mmol/L (21-32) Anion Gap 9 (6-14) Blood Urea Nitrogen 11 mg/dL (7-20) Creatinine 0.8 mg/dL (0.6-1.0) Estimated GFR (Cockcroft-Gault) 84.8 BUN/Creatinine Ratio 14 (6-20) Glucose Level 79 mg/dL (70-99) Calcium Level 7.4 mg/dL (8.5-10.1) Total Bilirubin 0.2 mg/dL (0.2-1.0) Aspartate Amino Transf (AST/SGOT) 17 U/L (15-37) Alanine Aminotransferase (ALT/SGPT) 21 U/L (14-59) Alkaline Phosphatase 62 U/L (46-116) Total Protein 5.2 g/dL (6.4-8.2) Albumin 2.8 g/dL (3.4-5.0) Albumin/Globulin Ratio 1.2 (1.0-1.7) Phosphorus Level 4.1 mg/dL (2.6-4.7) Test 7/18/20 12:40 Hemoglobin 8.1 g/dL (12.0-15.5) Medications Current Medications Sodium Chloride 500 ml @ 500 mls/hr 1X ONCE IV Last administered on 09/04/19at 17:07; Start 09/04/19 at 17:00; Stop 09/04/19 at 17:59; Status DC Pantoprazole Sodium (PROTONIX VIAL for IV PUSH) 40 mg 1X ONCE IVP Last administered on 09/04/19at 17:08; Start 09/04/19 at 17:00; Stop 09/05/19 at 11:04; Status DC Potassium Chloride (Klor-Con) 20 meq 1X ONCE PO Last administered on 09/04/19at 17:10; Start 09/04/19 at 17:30; Stop 09/04/19 at 17:31; Status DC Sodium Chloride 1,000 ml @ 75 mls/hr [id number] IV Last administered on 09/05/19at 09:20; Start 09/04/19 at 17:04; Stop 09/05/19 at 17:03; Status DC Iohexol (Omnipaque 300 Mg/ml) 75 ml 1X ONCE IV Last administered on 09/04/19at 17:18; Start 09/04/19 at 17:15; Stop 09/04/19 at 17:16; Status DC Info (CONTRAST GIVEN -- Rx MONITORING) 1 each PRN DAILY PRN MC SEE COMMENTS; Start 09/04/19 at 17:15; Stop 09/06/19 at 17:14 Pantoprazole Sodium 80 mg/ Sodium Chloride 100 ml @ 10 mls/hr Q10H IV Last administered on 09/05/19at 04:02; Start 09/04/19 at 17:30; Stop 09/05/19 at 11:06; Status DC Acetaminophen (Tylenol) 1,000 mg PRN BID PRN PO MILD PAIN 1-3 Last administered on 09/06/19at 09:23; Start 09/04/19 at 22:45 Albuterol Sulfate (Ventolin Neb Soln) 2.5 mg PRN Q4HRS PRN NEB SHORTNESS OF BREATH Last administered on 09/04/19at 23:20; Start 09/04/19 at 22:45 Potassium Chloride (Klor-Con) 40 meq PRN 1X PRN PO PER PROTOCOL Last administered on 09/05/19at 12:27; Start 09/05/19 at 08:00 Magnesium Oxide (Magnesium Oxide) 400 mg PRN BID PRN PO SEE COMMENTS; Start 09/05/19 at 09:00 Potassium Chloride/Water 100 ml @ 100 mls/hr PRN Q1HR PRN IV SEE COMMENTS; Start 09/05/19 at 08:00 Magnesium Sulfate 50 ml @ 25 mls/hr PRN DAILY PRN IV SEE COMMENTS; Start 09/05/19 at 08:00 Potassium Phos/ Sodium Phos (Phos-Nak) 1 pkt PRN BID PRN PO SEE COMMENTS; Start 09/05/19 at 09:00; Stop 09/06/19 at 08:34; Status DC Potassium Bicarbonate (Potassium Effervescent Tablet) 40 meq PRN Q4HRS PRN PO PER PROTOCOL; Start 09/05/19 at 08:00; Stop 09/06/19 at 08:34; Status DC Potassium Chloride/Water 100 ml @ 100 mls/hr PRN Q1HR PRN IV PER PROTOCOL; Start 09/05/19 at 08:00 Pantoprazole Sodium (Protonix) 40 mg DAILYAC PO Last administered on 09/06/19at 09:21; Start 09/05/19 at 11:30 Heparin Sodium (Porcine) (HEPARIN for NUC MED) 100 unit 1X ONCE IV ; Start 09/05/19 at 18:15; Stop 09/05/19 at 18:22; Status DC Sodium Chloride 1,000 ml @ 1,000 mls/hr 1X ONCE IV ; Start 09/05/19 at 21:30; Stop 09/05/19 at 22:29; Status DC Potassium Chloride (Klor-Con) 40 meq 1X PRN PO PER PROTOCOL; Start 09/06/19 at 08:30; Stop 09/06/19 at 08:36; Status DC Magnesium Oxide (Magnesium Oxide) 400 mg PRN BID PRN PO For MG++ 1.7 or <; Start 09/06/19 at 09:00 Potassium Chloride/Water 100 ml @ 100 mls/hr Q1H IV ; Start 09/06/19 at 08:30; Stop 09/06/19 at 08:36; Status DC Magnesium Sulfate 50 ml @ 25 mls/hr PRN DAILY PRN IV For MG++ of 1.7 or <; Start 09/06/19 at 08:30 Potassium Phos/ Sodium Phos (Phos-Nak) 1 pkt PRN BID PRN PO FOR PHOSPHORUS LEVEL 2.0-2.4; Start 09/06/19 at 09:00 Potassium Bicarbonate (Potassium Effervescent Tablet) 40 meq PRN Q4HRS PRN PO PER PROTOCOL; Start 09/06/19 at 08:30 Potassium Chloride/Water 100 ml @ 100 mls/hr Q1H PRN IV PER PROTOCOL; Start 09/06/19 at 08:30; Stop 09/06/19 at 08:36; Status DC Active Scripts Active Reported Tylenol Extra Strength (Acetaminophen) 500 Mg Tablet 2 Tab PO PRN BID PRN Symbicort 160-4.5 Mcg Inhaler (Budesonide/Formoterol Fumarate) 10.2 Gm Hfa.aer.ad 2 Puff INH BID Centrum Silver Tablet (Multivits-Min/Fa/Lycopene/Lut) 1 Each Tablet 1 Each PO DAILY Klor-Con 10 (Potassium Chloride) 10 Meq Tablet.er 1 Tab PO DAILY 30 Days Pravastatin Sodium 10 Mg Tablet 1 Tab PO DAILY Meloxicam 15 Mg Tablet 1 Tab PO DAILY 30 Days Proair Hfa Inhaler (Albuterol Sulfate) 8.5 Gm Hfa.aer.ad 2 Puff INH PRN Q4HRS PRN Aspirin 325 Mg Tablet 325 Tab PO DAILY Norvasc (Amlodipine Besylate) 10 Mg Tablet 10 Mg PO DAILY Vitals/I & O Vital Sign - Last 24 Hours 09/05/19 09/05/19 09/05/19 09/05/19 15:31 16:01 16:04 16:16 Temp 98.5 98.5 Pulse 63 77 77 69 Resp 18 20 20 20 B/P (MAP) 145/75 (98) 82/51 (61) 78/46 (57) 134/69 (90) Pulse Ox 95 O2 Delivery Room Air 09/05/19 09/05/19 09/05/19 09/05/19 16:22 16:31 16:46 17:01 Pulse 65 73 64 77 Resp 18 18 18 18 B/P (MAP) 133/76 (95) 133/77 (95) 139/77 (97) 137/74 (95) 09/05/19 09/05/19 09/05/19/18/20 20:00 20:10 23:18 03:15 Temp 98.4 98.5 98.5 98.4 98.5 98.5 Pulse 92 68 64 Resp 18 18 18 B/P (MAP) 143/80 (101) 109/43 (65) 115/46 (69) Pulse Ox 94 99 100 O2 Delivery Room Air Room Air Nasal Cannula Nasal Cannula O2 Flow Rate 2.0 09/06/19 09/06/19 09/06/19 07:00 08:00 11:20 Temp 98.4 98.1 98.4 98.1 Pulse 77 86 Resp 16 17 B/P (MAP) 119/70 (86) 107/69 (82) Pulse Ox 99 99 O2 Delivery Room Air Room Air Room Air Intake and Output 09/05/19 09/05/19 09/06/19 14:59 22:59 06:59 Intake Total 50 ml 1400 ml 100 ml Output Total 200 ml Balance 50 ml 1200 ml 100 ml Problem List Problems Medical Problems: (1) GI bleed Status: Acute Assessment Hematochezia-with acute blood loss anemia. most likely secondary to self limited diverticular bleed, With stable Hg, advance diet and release in am if Hg stable. Justicifation of Admission Dx: Justifications for Admission: Justification of Admission Dx: Yes JIM BECKMAN MD Sep 06, 2019 13:01
[2019-09-06 15:00] VITALS: BP 144/70
[2019-09-06] MEDS: IV NORMAL SALINE 1000ML BAG 1,000 ML IV SCH (16:47)
[2019-09-06 20:35] VITALS: BP 112/76
[2019-09-06 23:25] VITALS: BP 117/70
[2019-09-06] MEDS: ALBUTEROL SULFATE 2.5 MG/3 ML NEBU. NEB PRN (23:59)
[2019-09-07 03:20] VITALS: BP 125/65
[2019-09-07] MEDS: IV NORMAL SALINE 1000ML BAG 1,000 ML IV SCH ×2 (04:42→17:10)
[2019-09-07] MEDS: ACETAMINOPHEN 500 MG TABLET PO PRN ×2 (04:42→18:10)
[2019-09-07 07:00] VITALS: BP 122/68
[2019-09-07 08:40] LABS: CALCIUM 7.4 mg/dL (8.5-10.1); CREATININE 0.8 mg/dL (0.6-1.0); GFR 84.8; POTASSIUM 3.1 mmol/L (3.5-5.1)
[2019-09-07] MEDS: PANTOPRAZOLE 40 MG TABLET.DR. PO SCH (10:03)
[2019-09-07] MEDS: POTASSIUM CHLORIDE 20 MEQ TABLET.ER. PO PRN (10:06)
[2019-09-07 11:00] VITALS: BP 130/65
--- NOTE | 2019-09-07 12:48 | PDOC ---
[facility] [facility] PROGRESS NOTE Chief Complaint Chief Complaint Acute lower GI BLEEDING Acute anemia secondary to GI bleeding Acute hypotensive episode secondary to GI bleedingresolved HX ugi bleeding 2017 by EGD copd Lower lumbar spondylosis, Melena Asthma Anemia of chronic disease Hypokalemia Positive stool occult History of intracranial aneurysm, remote, off plavix now Osteoarthritis Tobacco abuse disorder PLAN Hold IV fluids Monitor for bloody bowel meds for the next 12 hours Trend H&H Continue monitoring on telemetry Appreciate GI recommendations Diet per GI iv protonix drip home meds SCD or DVT prophylaxis Full code Discussed with RN Dispo pending GI recommendations. History of Present Illness History of Present Illness 74 year old female who presents with chief complaint of dizziness and rectal bleeding. // had rectal bleeding now for 2 or 3 large episodes filled the toilet bowl twice earlier today she felt dizzy she did not pass out she just felt weak. c/o dull left lower quadrant abdominal pain for this time. As well last colonoscopy was 2 years ago polyps were identified no other issues noted. 3 years ago she did have rectal melena related to gastritis in the setting of blood thinners are being used after a she tells me she had an aneurysm. That is all she is recovered from that now. Patient does smoke cigarettes denies alcohol. normal CA19-9 in 2013. gastritis seen on egd in 2017 hgb in ER =11 09/07/2019 No acute events overnight. Patient seen and examined bedside. Patient does endorse dark blood and clots mixed with bright blood. Patient denies any abdominal pains or hematemesis. \ Vitals/I&O Vitals/I&O: Vital Signs Date Time Temp Pulse Resp B/P (MAP) Pulse Ox O2 Delivery O2 Flow Rate FiO2 09/07/19 11:00 98.6 72 16 130/65 (86) 100 Room Air 98.6 09/07/19 03:20 2.0 I & O 09/06/19 09/06/19 09/07/19 15:00 23:00 07:00 Intake Total 240 ml 0 ml Balance 240 ml 0 ml Physical Exam Physical Exam: GEN: No apparent distress. Alert and oriented HEENT: Normal cephalic, atraumatic, external auditory canals are patent NECK: Supple, no JVD, no thyromegaly was noted LUNGS: Bilateral crackles HEART: RRR, S1, S2 present. Peripheral pulses intact, no obvious murmurs noted ABDOMEN: Soft, nontender. Positive bowel sounds, no organomegaly, normal bowel sounds EXTREMITIES: Without clubbing, cyanosis, or edema. Pedal pulses intact. Negative Homans sign General: Alert, Oriented X3, Cooperative, No acute distress Lungs: Clear, Other Abdomen: Normal bowel sounds, Soft Extremities: No cyanosis Labs Labs: Laboratory Tests Test 09/06/19 16:30 09/07/19 03:30 09/07/19 11:20 Hemoglobin 7.6 g/dL (12.0-15.5) 7.3 g/dL (12.0-15.5) 7.7 g/dL (12.0-15.5) Sodium Level 145 mmol/L (136-145) Potassium Level 3.1 mmol/L (3.5-5.1) Chloride Level 111 mmol/L (98-107) Carbon Dioxide Level 26 mmol/L (21-32) Anion Gap 8 (6-14) Blood Urea Nitrogen 14 mg/dL (7-20) Creatinine 0.8 mg/dL (0.6-1.0) Estimated GFR (Cockcroft-Gault) 84.8 Glucose Level 83 mg/dL (70-99) Calcium Level 7.4 mg/dL (8.5-10.1) Phosphorus Level 3.3 mg/dL (2.6-4.7) Assessment and Plan Assessmemt and Plan Problems Medical Problems: (1) GI bleed Status: Acute Comment Review of Relevant I have reviewed the following items frieda (where applicable) has been applied. Medications: Current Medications Medications (Trade) Dose Ordered Sig/Ana Route PRN Reason Start Time Stop Time Status Last Admin Dose Admin Sodium Chloride 1,000 ml @ 75 mls/hr [id number] IV 09/06/19 14:30 09/07/19 04:42 Justicifation of Admission Dx: Justifications for Admission: Justification of Admission Dx: Yes KENYATTA PENA MD Sep 07, 2019 12:48
--- NOTE | 2019-09-07 14:29 | PDOC ---
[facility] I PROGRESS NOTE Reason for Follow-up Hematochezia/acute blood loss anemia Subjective Tolerating PO/Passing old blood savita/Hg stable Physical Exam Lungs clear CV S1 S2 ABD +BS, soft, nontender Review of Relevant I have reviewed the following items frieda (where applicable) has been applied. Labs Laboratory Tests Test 09/05/19 16:02 09/05/19 17:10 09/06/19 05:00 09/06/19 12:40 Glucose (Fingerstick) 82 mg/dL (70-99) White Blood Count 9.5 x10^3/uL (4.0-11.0) 7.0 x10^3/uL (4.0-11.0) Red Blood Count 2.80 x10^6/uL (3.50-5.40) 2.51 x10^6/uL (3.50-5.40) Hemoglobin 9.5 g/dL (12.0-15.5) 8.1 g/dL (12.0-15.5) 8.1 g/dL (12.0-15.5) Hematocrit 26.9 % (36.0-47.0) 24.2 % (36.0-47.0) Mean Corpuscular Volume 96 fL (79-100) 97 fL (79-100) Mean Corpuscular Hemoglobin 34 pg (25-35) 32 pg (25-35) Mean Corpuscular Hemoglobin Concent 35 g/dL (31-37) 33 g/dL (31-37) Red Cell Distribution Width 15.4 % (11.5-14.5) 15.1 % (11.5-14.5) Platelet Count 203 x10^3/uL (140-400) 203 x10^3/uL (140-400) Neutrophils (%) (Auto) 78 % (31-73) Lymphocytes (%) (Auto) 15 % (24-48) Monocytes (%) (Auto) 5 % (0-9) Eosinophils (%) (Auto) 1 % (0-3) Basophils (%) (Auto) 1 % (0-3) Neutrophils # (Auto) 7.4 x10^3/uL (1.8-7.7) Lymphocytes # (Auto) 1.4 x10^3/uL (1.0-4.8) Monocytes # (Auto) 0.5 x10^3/uL (0.0-1.1) Eosinophils # (Auto) 0.1 x10^3/uL (0.0-0.7) Basophils # (Auto) 0.1 x10^3/uL (0.0-0.2) Prothrombin Time 14.6 SEC (11.7-14.0) Prothromb Time International Ratio 1.2 (0.8-1.1) Sodium Level 146 mmol/L (136-145) Potassium Level 3.2 mmol/L (3.5-5.1) Chloride Level 112 mmol/L (98-107) Carbon Dioxide Level 25 mmol/L (21-32) Anion Gap 9 (6-14) Blood Urea Nitrogen 11 mg/dL (7-20) Creatinine 0.8 mg/dL (0.6-1.0) Estimated GFR (Cockcroft-Gault) 84.8 BUN/Creatinine Ratio 14 (6-20) Glucose Level 79 mg/dL (70-99) Calcium Level 7.4 mg/dL (8.5-10.1) Total Bilirubin 0.2 mg/dL (0.2-1.0) Aspartate Amino Transf (AST/SGOT) 17 U/L (15-37) Alanine Aminotransferase (ALT/SGPT) 21 U/L (14-59) Alkaline Phosphatase 62 U/L (46-116) Total Protein 5.2 g/dL (6.4-8.2) Albumin 2.8 g/dL (3.4-5.0) Albumin/Globulin Ratio 1.2 (1.0-1.7) Phosphorus Level 4.1 mg/dL (2.6-4.7) Test 09/06/19 16:30 09/07/19 03:30 09/07/19 11:20 Hemoglobin 7.6 g/dL (12.0-15.5) 7.3 g/dL (12.0-15.5) 7.7 g/dL (12.0-15.5) Sodium Level 145 mmol/L (136-145) Potassium Level 3.1 mmol/L (3.5-5.1) Chloride Level 111 mmol/L (98-107) Carbon Dioxide Level 26 mmol/L (21-32) Anion Gap 8 (6-14) Blood Urea Nitrogen 14 mg/dL (7-20) Creatinine 0.8 mg/dL (0.6-1.0) Estimated GFR (Cockcroft-Gault) 84.8 Glucose Level 83 mg/dL (70-99) Calcium Level 7.4 mg/dL (8.5-10.1) Phosphorus Level 3.3 mg/dL (2.6-4.7) Laboratory Tests Test 09/06/19 16:30 09/07/19 03:30 09/07/19 11:20 Hemoglobin 7.6 g/dL (12.0-15.5) 7.3 g/dL (12.0-15.5) 7.7 g/dL (12.0-15.5) Sodium Level 145 mmol/L (136-145) Potassium Level 3.1 mmol/L (3.5-5.1) Chloride Level 111 mmol/L (98-107) Carbon Dioxide Level 26 mmol/L (21-32) Anion Gap 8 (6-14) Blood Urea Nitrogen 14 mg/dL (7-20) Creatinine 0.8 mg/dL (0.6-1.0) Estimated GFR (Cockcroft-Gault) 84.8 Glucose Level 83 mg/dL (70-99) Calcium Level 7.4 mg/dL (8.5-10.1) Phosphorus Level 3.3 mg/dL (2.6-4.7) Medications Current Medications Sodium Chloride 500 ml @ 500 mls/hr 1X ONCE IV Last administered on 09/04/19at 17:07; Start 09/04/19 at 17:00; Stop 09/04/19 at 17:59; Status DC Pantoprazole Sodium (PROTONIX VIAL for IV PUSH) 40 mg 1X ONCE IVP Last administered on 09/04/19at 17:08; Start 09/04/19 at 17:00; Stop 09/05/19 at 11:04; Status DC Potassium Chloride (Klor-Con) 20 meq 1X ONCE PO Last administered on 09/04/19at 17:10; Start 09/04/19 at 17:30; Stop 09/04/19 at 17:31; Status DC Sodium Chloride 1,000 ml @ 75 mls/hr [id number] IV Last administered on 09/05/19at 09:20; Start 09/04/19 at 17:04; Stop 09/05/19 at 17:03; Status DC Iohexol (Omnipaque 300 Mg/ml) 75 ml 1X ONCE IV Last administered on 09/04/19at 17:18; Start 09/04/19 at 17:15; Stop 09/04/19 at 17:16; Status DC Info (CONTRAST GIVEN -- Rx MONITORING) 1 each PRN DAILY PRN MC SEE COMMENTS; Start 09/04/19 at 17:15; Stop 09/06/19 at 17:14; Status DC Pantoprazole Sodium 80 mg/ Sodium Chloride 100 ml @ 10 mls/hr Q10H IV Last administered on 09/05/19at 04:02; Start 09/04/19 at 17:30; Stop 09/05/19 at 11:06; Status DC Acetaminophen (Tylenol) 1,000 mg PRN BID PRN PO MILD PAIN 1-3 Last administered on 09/07/19at 04:42; Start 09/04/19 at 22:45 Albuterol Sulfate (Ventolin Neb Soln) 2.5 mg PRN Q4HRS PRN NEB SHORTNESS OF BREATH Last administered on 09/06/19at 23:59; Start 09/04/19 at 22:45 Potassium Chloride (Klor-Con) 40 meq PRN 1X PRN PO PER PROTOCOL Last administer ed on 09/07/19at 10:06; Start 09/05/19 at 08:00 Magnesium Oxide (Magnesium Oxide) 400 mg PRN BID PRN PO SEE COMMENTS; Start 09/05/19 at 09:00; Status Cancel Potassium Chloride/Water 100 ml @ 100 mls/hr PRN Q1HR PRN IV SEE COMMENTS; Start 09/05/19 at 08:00 Magnesium Sulfate 50 ml @ 25 mls/hr PRN DAILY PRN IV SEE COMMENTS; Start 09/05/19 at 08:00; Status Cancel Potassium Phos/ Sodium Phos (Phos-Nak) 1 pkt PRN BID PRN PO SEE COMMENTS; Start 09/05/19 at 09:00; Stop 09/06/19 at 08:34; Status DC Potassium Bicarbonate (Potassium Effervescent Tablet) 40 meq PRN Q4HRS PRN PO PER PROTOCOL; Start 09/05/19 at 08:00; Stop 09/06/19 at 08:34; Status DC Potassium Chloride/Water 100 ml @ 100 mls/hr PRN Q1HR PRN IV PER PROTOCOL; Start 09/05/19 at 08:00 Pantoprazole Sodium (Protonix) 40 mg DAILYAC PO Last administered on 09/07/19at 10:03; Start 09/05/19 at 11:30 Heparin Sodium (Porcine) (HEPARIN for NUC MED) 100 unit 1X ONCE IV ; Start 09/05/19 at 18:15; Stop 09/05/19 at 18:22; Status DC Sodium Chloride 1,000 ml @ 1,000 mls/hr 1X ONCE IV ; Start 09/05/19 at 21:30; Stop 09/05/19 at 22:29; Status DC Potassium Chloride (Klor-Con) 40 meq 1X PRN PO PER PROTOCOL; Start 09/06/19 at 08:30; Stop 09/06/19 at 08:36; Status DC Magnesium Oxide (Magnesium Oxide) 400 mg PRN BID PRN PO For MG++ 1.7 or <; Start 09/06/19 at 09:00 Potassium Chloride/Water 100 ml @ 100 mls/hr Q1H IV ; Start 09/06/19 at 08:30; Stop 09/06/19 at 08:36; Status DC Magnesium Sulfate 50 ml @ 25 mls/hr PRN DAILY PRN IV For MG++ of 1.7 or <; Start 09/06/19 at 08:30 Potassium Phos/ Sodium Phos (Phos-Nak) 1 pkt PRN BID PRN PO FOR PHOSPHORUS LEVEL 2.0-2.4; Start 09/06/19 at 09:00 Potassium Bicarbonate (Potassium Effervescent Tablet) 40 meq PRN Q4HRS PRN PO PER PROTOCOL; Start 09/06/19 at 08:30 Potassium Chloride/Water 100 ml @ 100 mls/hr Q1H PRN IV PER PROTOCOL; Start 09/06/19 at 08:30; Stop 09/06/19 at 08:36; Status DC Sodium Chloride 1,000 ml @ 75 mls/hr [id number] IV Last administered on 09/07/19at 04:42; Start 09/06/19 at 14:30 Active Scripts Active Reported Tylenol Extra Strength (Acetaminophen) 500 Mg Tablet 2 Tab PO PRN BID PRN Symbicort 160-4.5 Mcg Inhaler (Budesonide/Formoterol Fumarate) 10.2 Gm Hfa.aer.ad 2 Puff INH BID Centrum Silver Tablet (Multivits-Min/Fa/Lycopene/Lut) 1 Each Tablet 1 Each PO DAILY Klor-Con 10 (Potassium Chloride) 10 Meq Tablet.er 1 Tab PO DAILY 30 Days Pravastatin Sodium 10 Mg Tablet 1 Tab PO DAILY Meloxicam 15 Mg Tablet 1 Tab PO DAILY 30 Days Proair Hfa Inhaler (Albuterol Sulfate) 8.5 Gm Hfa.aer.ad 2 Puff INH PRN Q4HRS PRN Aspirin 325 Mg Tablet 325 Tab PO DAILY Norvasc (Amlodipine Besylate) 10 Mg Tablet 10 Mg PO DAILY Vitals/I & O Vital Sign - Last 24 Hours 09/06/19 09/06/19 09/06/19 09/06/19 15:00 19:00 20:00 20:35 Temp 98.1 98.3 98.1 98.3 Pulse 84 79 Resp 17 21 B/P (MAP) 144/70 (94) 112/76 (88) Pulse Ox 96 96 O2 Delivery Room Air Nasal Cannula Room Air Nasal Cannula O2 Flow Rate 2.0 09/06/19 09/06/19 09/07/19 09/07/19 23:25 23:59 03:20 07:00 Temp 98.1 98.2 98.4 98.1 98.2 98.4 Pulse 69 79 69 Resp 20 21 18 B/P (MAP) 117/70 (86) 125/65 (85) 122/68 (86) Pulse Ox 100 96 100 98 O2 Delivery Nasal Cannula Room Air Nasal Cannula Room Air O2 Flow Rate 2.0 2.0 09/07/19 09/07/19 07:50 11:00 Temp 98.6 98.6 Pulse 72 Resp 16 B/P (MAP) 130/65 (86) Pulse Ox 100 O2 Delivery Room Air Room Air Intake and Output 09/06/19 09/06/19 09/07/19 15:00 23:00 07:00 Intake Total 240 ml 0 ml Balance 240 ml 0 ml Problem List Problems Medical Problems: (1) GI bleed Status: Acute Assessment Rectal bleed- most likely secondary to diverticular disease, bleeding has ceased, patient ready for discharge with o/p colonoscopy in 2 weeks Justicifation of Admission Dx: Justifications for Admission: Justification of Admission Dx: Yes JIM BECKMAN MD Sep 07, 2019 14:29
[2019-09-07 15:00] VITALS: BP 140/70
[2019-09-07 18:55] VITALS: BP 131/71
[2019-09-07 23:00] VITALS: BP 127/71
[2019-09-08 03:47] VITALS: BP 131/62
[2019-09-08 07:00] VITALS: BP 137/77
[2019-09-08] MEDS: PANTOPRAZOLE 40 MG TABLET.DR. PO SCH (07:29)
[2019-09-08] MEDS: POTASSIUM CHLORIDE 20 MEQ TABLET.ER. PO PRN (07:30)
[2019-09-08] MEDS: ACETAMINOPHEN 500 MG TABLET PO PRN (07:39)
[2019-09-08 09:32] LABS: ALBUMIN 2.8 g/dL (3.4-5.0); ALBUMIN/GLOBULIN RATIO 1.2 (1.0-1.7); CREATININE 0.9 mg/dL (0.6-1.0); GFR 74.1; POTASSIUM 3.4 mmol/L (3.5-5.1); TOTAL BILIRUBIN 0.1 mg/dL (0.2-1.0); TOTAL PROTEIN 5.1 g/dL (6.4-8.2)
[2019-09-08 10:44] LABS: HEMATOCRIT 21.7 % (36.0-47.0); HEMOGLOBIN 7.3 g/dL (12.0-15.5)
[2019-09-08 11:00] VITALS: BP 137/76
--- NOTE | 2019-09-08 12:23 | PDOC ---
Subjective: Subjective: Feels better - has some questions about potassium and magnesium - h/o hy pokalemia. Stooling - looks "black" - no longer red. Would like to go home. Objective: Objective: Called by Dr. Villarreal this morning asking about DC. D/w nurse - a little red on toilet tissue? - otherwise old blood. Vital Signs: Vital Signs Date Time Temp Pulse Resp B/P (MAP) Pulse Ox O2 Delivery O2 Flow Rate FiO2 09/08/19 11:00 98.0 72 16 137/76 (96) 97 Room Air 98.0 Labs: Laboratory Tests Test 09/08/19 06:11 Hemoglobin 7.3 g/dL Hematocrit 21.7 % Mean Corpuscular Hemoglobin Concent 34 g/dL Sodium Level 146 mmol/L Potassium Level 3.4 mmol/L Chloride Level 109 mmol/L Carbon Dioxide Level 26 mmol/L Anion Gap 11 Blood Urea Nitrogen 9 mg/dL Creatinine 0.9 mg/dL Estimated GFR (Cockcroft-Gault) 74.1 BUN/Creatinine Ratio 10 Glucose Level 95 mg/dL Calcium Level 8.0 mg/dL Magnesium Level 1.7 mg/dL Total Bilirubin 0.1 mg/dL Aspartate Amino Transf (AST/SGOT) 20 U/L Alanine Aminotransferase (ALT/SGPT) 21 U/L Alkaline Phosphatase 64 U/L Total Protein 5.1 g/dL Albumin 2.8 g/dL Albumin/Globulin Ratio 1.2 Imaging: Bleed Scan 09/04 IMPRESSION: * The site of the patient's known gastrointestinal bleeding is not localized on this examination. This could be secondary to the patient not having an e pisode of bleeding during the time of examination. If the patient has a repeat bout of bleeding either delayed images could be obtained at that time or repeat exam could be obtained in order to attempt to localize the site of gastrointestinal bleeding. PE: GEN: NAD LUNGS: CTAB HEART: RRR ABD: NABS, S/ND/NT NEURO/PSYCH: A & O 3 A/P: Suspected diverticular bleed - resolving Anemia - stable in 7s -- DC per primary. Defer her questions re: potassium and magnesium to Dr. Villarreal. Our office will call to schedule outpt colonoscopy as recommended by Dr. Caceres. Add PO iron - she has some at home. Justicifation of Admission Dx: Justifications for Admission: Justification of Admission Dx: Yes SAKINA ORTIZ Sep 08, 2019 12:23
--- NOTE | 2019-09-08 12:27 | NUR ---
SS following for discharge planning. SS reviewed pt chart and discussed with pt RN. Pt is from home with spouse and is currently on room air. Possible discharge to home today. SS will continue to follow for discharge planning.
--- NOTE | 2019-09-08 14:12 | NUR ---
pt is discharged home with self care at 1405 via wheelchair via VILMA Martinez. pt is in stable condition. pt has all belongings with her. pt received discharge instructions and stated she had no further questions for me.
--- NOTE | 2019-09-09 09:07 | DS ---
DATE OF DISCHARGE: 09/08/2019 ADMISSION DIAGNOSIS: Gastrointestinal bleed. DISCHARGE DIAGNOSES: Resolving gastrointestinal bleed, suspect diverticular bleed. CONSULTATIONS: GI. PROCEDURES: None. HOSPITAL COURSE: The patient is a pleasant middle-aged female who presented with the GI bleed. She was admitted. We transfused her, consulted GI, gave her IV proton pump inhibitors and trended her hemoglobin. Her hemoglobin seems to have peaked around 7.5 and then did not drop much more. Yesterday, I saw her and examined her, she was at her baseline. Heart tones were normal. Lungs were clear. I spoke with the nurse and also called the nurse practitioner for GI and we all agreed that the patient was probably stable to go home. We discharged to home. DISPOSITION: Home. ACTIVITY: As tolerated. DIET: Low sodium. MEDICATIONS: Please see the MRAD. TOTAL TIME: 33 minutes. THANGL Shayne STEPHENSON DO DR: GEORGETTE/earl JOB#: [id number] / [id number]
[2019-10-22] MEDS ORDERED: FERR325T14 PO ×2 (09:24→09:36)
[2019-10-22] MEDS ORDERED: DOCU-109 PO (09:36)
== END 2019-09-08 14:05 | disposition home or self-care (01) | DRG 378 ==
LOC: ER 16:06 → ED HOLD 17:20 → 6 SOUTH 19:33 → 2 NORTH 09-07 07:03
PROVIDERS: ADMIT Family Medicine; ATTEND Family Medicine
DX: K57.31 Diverticulosis of large intestine without perforation or abscess with bleeding (principal); D62 Acute posthemorrhagic anemia; D63.8 Anemia in other chronic diseases classified elsewhere; E87.6 Hypokalemia; I10 Essential (primary) hypertension; K64.9 Unspecified hemorrhoids; I70.0 Atherosclerosis of aorta; J43.2 Centrilobular emphysema; M19.90 Unspecified osteoarthritis, unspecified site; K29.40 Chronic atrophic gastritis without bleeding; I95.9 Hypotension, unspecified; M47.816 Spondylosis without myelopathy or radiculopathy, lumbar region; F17.210 Nicotine dependence, cigarettes, uncomplicated; F32.9 Major depressive disorder, single episode, unspecified; F41.9 Anxiety disorder, unspecified; Z80.9 Family history of malignant neoplasm, unspecified; Z82.3 Family history of stroke; Z82.49 Family history of ischemic heart disease and other diseases of the circulatory system; Z82.5 Family history of asthma and other chronic lower respiratory diseases; Z85.07 Personal history of malignant neoplasm of pancreas; Z88.8 Allergy status to other drugs, medicaments and biological substances; Z87.01 Personal history of pneumonia (recurrent); Z88.1 Allergy status to other antibiotic agents; Z88.2 Allergy status to sulfonamides; Z90.49 Acquired absence of other specified parts of digestive tract; Z79.82 Long term (current) use of aspirin
CPT/HCPCS: 36415; 74177; 78278; 80048; 80053; 82274; 82607; 82962; 83540; 83550; 83735; 84100; 85014; 85018; 85025; 85027; 85610; 86850; 86900; 86901; 93005; 94640; 96361; 96365; 96374; 96375; 99285; A9560; C9113; J3475; J7030; J7040; Q9967; G0378; J7613

== ENCOUNTER → 2019-10-20 | Outpatient (CLI) | payer MEDICARE ==
[~2019-10-20] MED LIST changes: +ACET500T33 PO; +BUDE10.2 INH; +DOCU-109 PO; +FERR325T14 PO; +MELO15TA23 PO; +MULT-658 PO; +POTA10TA12 PO; +PRAV10TA2 PO
[2019-10-20 09:02] LABS: BASO % 1 % (0-3); EOS # 0.1 x10^3/uL (0.0-0.7); EOS % 1 % (0-3); HEMATOCRIT 36.9 % (36.0-47.0); HEMOGLOBIN 12.1 g/dL (12.0-15.5); LYMPH # 1.3 x10^3/uL (1.0-4.8); LYMPH % 21 % (24-48); MEAN CORPUSCULAR HEMOGLOBIN 31 pg (25-35); MEAN CORPUSCULAR HGB CONC 33 g/dL (31-37); MEAN CORPUSCULAR VOLUME 96 fL (79-100); MONO # 0.4 x10^3/uL (0.0-1.1); MONO % 6 % (0-9); NEUT # 4.5 x10^3/uL (1.8-7.7); NEUT % 71 % (31-73); PLATELET COUNT 374 x10^3/uL (140-400); RED BLOOD COUNT 3.86 x10^6/uL (3.50-5.40); RED CELL DISTRIBUTION WIDTH 16.6 % (11.5-14.5); WHITE BLOOD COUNT 6.3 x10^3/uL (4.0-11.0)
[2019-10-20 09:12] LABS: PROTHROMBIN TIME PATIENT 12.9 SEC (11.7-14.0)
[2019-10-20 09:24] LABS: ALBUMIN 3.6 g/dL (3.4-5.0); ANION GAP 8 (6-14); BLOOD UREA NITROGEN 11 mg/dL (7-20); C-REACTIVE PROTEIN < 0.5 mg/L (0-3.3); CALCIUM 8.8 mg/dL (8.5-10.1); CARBON DIOXIDE 30 mmol/L (21-32); CHLORIDE 105 mmol/L (98-107); CREATININE 0.9 mg/dL (0.6-1.0); GFR 74.1; GLUCOSE 85 mg/dL (70-99); SODIUM 143 mmol/L (136-145)
[2019-10-20 09:27] LABS: POTASSIUM 2.9 mmol/L (3.5-5.1)
--- NOTE | 2019-10-20 19:00 | RAD ---
Chest PA and lateral: Reason for examination: Joint prehab class. History of hypertension and COPD. Left hip surgery. The heart size is normal. Mediastinum is unremarkable. Lung carl are hyperaerated consistent with COPD with no nodules, infiltrates or pleural effusions seen. No acute bony abnormalities are seen. Impression: COPD. No acute cardiopulmonary disease. Electronically signed by: Tanvi Barakat MD (10/20/2019 6:57 PM) [facility]
[2019-10-21 01:08] LABS: HEMOGLOBIN A1C 4.9 % (4.8-5.6)
--- NOTE | 2019-10-22 16:51 | EKG ---
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
== END | disposition home or self-care (01) ==
LOC: SURGPAT 13:53
PROVIDERS: ATTEND Orthopaedic Surgery Sports Medicine
DX: Z01.818 Encounter for other preprocedural examination (principal); M16.12 Unilateral primary osteoarthritis, left hip; J44.9 Chronic obstructive pulmonary disease, unspecified; R94.31 Abnormal electrocardiogram [ECG] [EKG]
CPT/HCPCS: 36415; 71046; 80048; 82040; 82306; 83036; 85025; 85610; 85730; 86140; 87641; 93005

== ENCOUNTER → 2019-10-30 | Outpatient (CLI) | payer MEDICARE | END | disposition home or self-care (01) | LOC: LAB 13:47 | PROVIDERS: ATTEND Orthopaedic Surgery Sports Medicine | DX: Z01.812 Encounter for preprocedural laboratory examination (principal); Z20.828 Contact with and (suspected) exposure to other viral communicable diseases; M19.90 Unspecified osteoarthritis, unspecified site | CPT/HCPCS: U0003-CS ==

== ENCOUNTER 2019-11-03 05:58 | Observation (INO) | payer MEDICARE ==
[2019-11-03] VITALS (10 sets, daily range): BP systolic 112–127; BP diastolic 61–69
[~2019-11-03] VITALS: Ht 167.6 cm; Wt 63.9 kg
[2019-11-03] MEDS ORDERED: IV RINGERS,LACTATED 1000ML 1,000 ML IV SCH ×2 (06:30→07:17)
[2019-11-03] MEDS ORDERED: LIDOCAINE 2% PF 5 ML VIAL. ONE (07:03)
[2019-11-03] MEDS ORDERED: ONDANSETRON PF 4 MG/2 ML VIAL. ONE ×2 (07:03→07:04)
[2019-11-03] MEDS ORDERED: PROPOFOL 10 MG/ML (20ML) VIAL. IV ONE (07:03)
[2019-11-03] MEDS ORDERED: DEXAMETHASONE SOD PHOS 4 MG/ML VIAL ONE (07:04)
[2019-11-03] MEDS ORDERED: fentaNYL PF VIAL 100 MCG/2 ML VIAL ONE (07:04)
[2019-11-03] MEDS ORDERED: PHENYLEPHRINE in 0.9% NACL PF 1 MG/10 ML SYRINGE. IV ONE (07:04)
[2019-11-03] MEDS ORDERED: ROCURONIUM 50 MG/5 ML VIAL. ONE (07:05)
[2019-11-03 07:13] LABS: PROTHROMBIN TIME PATIENT 12.3 SEC (11.7-14.0)
[2019-11-03] MEDS ORDERED: LIDOCAINE 1% PF 2 ML VIAL. ID PRN (07:30)
[2019-11-03] MEDS ORDERED: fentaNYL PF VIAL 100 MCG/2 ML VIAL IV PRN (07:30)
[2019-11-03] MEDS ORDERED: PROCHLORPERAZINE 10 MG/2 ML VIAL. IV PRN (07:30)
[2019-11-03] MEDS ORDERED: ONDANSETRON PF 4 MG/2 ML VIAL. IV PRN (07:30)
[2019-11-03] MEDS ORDERED: HYDROmorphone 2 MG/ML VIAL IV PRN (07:30)
[2019-11-03] MEDS ORDERED: IV NORMAL SALINE 1000ML BAG 1,000 ML IV SCH (07:36)
[2019-11-03] MEDS ORDERED: METOCLOPRAMIDE HCL 10 MG/2 ML VIAL. IVP PRN (07:45)
[2019-11-03] MEDS ORDERED: diphenhydrAMINE 50 MG/ML VIAL IVP PRN (07:45)
[2019-11-03] MEDS ORDERED: fentaNYL PF VIAL 100 MCG/2 ML VIAL IVP PRN (07:45)
[2019-11-03] MEDS ORDERED: DOCUSATE SODIUM 100 MG CAPSULE. PO PRN (07:45)
[2019-11-03] MEDS ORDERED: MORPHINE SULFATE 2 MG/ML VIAL. IVP PRN (07:45)
[2019-11-03] MEDS ORDERED: 0.9 % SODIUM CHLORIDE 10 ML DISP.SYRIN. IV PRN (07:45)
[2019-11-03] MEDS ORDERED: CALCIUM CARBONATE 500 MG TAB.CHEW PO PRN (07:45)
[2019-11-03] MEDS ORDERED: DEXTROSE 50% 25 GM / 50ML DISP.SYRIN. IV PRN (07:45)
[2019-11-03] MEDS ORDERED: PROCHLORPERAZINE 5 MG TABLET. PO PRN (07:45)
[2019-11-03] MEDS ORDERED: ZOLPIDEM 5 MG TABLET. PO PRN (07:45)
[2019-11-03] MEDS ORDERED: GLYCOPYRROLATE 1 MG/5 ML VIAL. ONE ×2 (07:59→08:00)
[2019-11-03] MEDS ORDERED: NEOSTIGMINE METHYLSULFATE 5 MG/5 ML SYRINGE. ONE (08:00)
[2019-11-03] MEDS ORDERED: MORPHINE SULFATE 5 MG, KETOROLAC 30MG VIAL 30 MG, ROPIVacaine 0.5% PF 60 ML, EPINEPHrin... INT ART ONE (08:00)
[2019-11-03] MEDS ORDERED: ePHEDrine PF IN SALINE 50 MG/10 ML SYRINGE. IV ONE (08:33)
[2019-11-03] MEDS ORDERED: SEVOFLURANE 61 TO 120 MINUTES. IH ONE (08:44)
[2019-11-03] MEDS: amLODIPine BESYLATE 10 MG TABLET PO SCH (09:00)
[2019-11-03] MEDS ORDERED: NON FORMULARY ITEM (Budesonide/Formoterol Fumarate (Symbicort 160-4.5 Mcg Inhaler) 2 PUFF) INH SCH (09:00)
[2019-11-03] MEDS: FERROUS SULFATE 325 MG TABLET. PO SCH ×3 (09:00→17:11)
[2019-11-03] MEDS: BUDESONIDE 0.5 MG/2 ML NEBU. NEB SCH (09:30)
--- NOTE | 2019-11-03 09:41 | PDOC4 ---
Operative Note Operative Note Date of procedure: 11/03/2019 Surgeon: Nuno Gusman Creative Services Director: Simba Cooper Preoperative diagnosis: Advanced primary left hip degenerative joint disease Postoperative diagnosis: Same Procedure performed: Left total hip arthroplasty Anesthesia: General Findings: Advanced primary degenerative joint disease of left hip Complications: None Blood loss: 150 mL Components inserted: Size 7 standard offset anthology femur, 52 mm R3 shell with a 20 degree elevated liner, 36 mm +8 cobalt chrome head Reason for procedure: Patient is a very pleasant 74-year-old female who has longstanding and progressive pain attributable to her clinical and radiographically proven arthritis who has tried and failed conservative therapies. We have discussed total hip arthroplasty at several prior encounters and she wished to proceed. Description of procedure: Patient was greeted in the preoperative area by myself or the correct extremity was verified and marked. She was taken to the operative suite antibiotics started as she was brought back. Once in the operating room, she underwent successful induction of a general anesthetic, she was secured to the bed in a lateral decubitus position with all down pressure po ints padded including an axillary roll. We put in place her hip positioning device. We then proceeded prep and drape left lower extremity and hip region in her usual sterile fashion including an Ioban sandwich. We conducted our standard preoperative timeout. I palpated marked surface anatomy and michael a line for my standard posterior lateral skin incision. I dissected subcutaneous tissue with electrocautery after I incised skin with a scalpel. Identified the fascia and incised this in line with the skin incision. We placed a self- retaining retractor. I swept some bursal tissue posteriorly and identified the quadratus, taking this down followed by the piriformis. I tagged the piriformis for later repair. Identified the hip capsule and incised this in a T-type incision. I applied traction stitches to the capsule as well. We then dislocated the femur. She had abundant amount of wear and osteophytes present. I then made measurements for my length and offset. I then measured and michael a line 1 cm above the lesser trochanter for my neck cut. I placed Homans around the femoral neck. I then made my neck cut and deliver the bony remnant from the operative field. I then reposition the leg and added my acetabular retractors. I excised the soft tissue from the floor of the acetabulum and some of the labrum. After this I began reaming and reamed up to the above size which gave good punctate bleeding bony bed. I then impacted my cup in position. I palpated for the posterior column and placed a screw in the posterior column. I then impacted my acetabular liner into position. It should be noted that prior to impacting my acetabular component, I did thoroughly irrigate the operative field. I visualized and confirmed that the liner was fully seated and locked in place. We then again reposition the leg and took out our acetabular retractors adding in our proximal femoral elevator. I then used the sami cutting osteotome proximally followed by a lateralizing reamer and canal finding reamer. I then began broaching and broached up to a size 6. I then trialed the head and neck sizes, I felt that her leg length was still little too short so I removed all this trial stuff and added in the size 7 which gave a much better leg length and stability. With the trial components in position she had good range of motion and stability as well as leg length. I then removed all trial femoral components, thoroughly irrigated the canal and operative field again. I then impacted the stem into position. We then trialed different head sizes, and I again selected the above size. We therefore dislocated the hip, washed and dried the Dumont taper region and gently impacted the cobalt chrome ball in position. I then inspected the liner making sure it was free of debris. The hip was then reduced. I then closed capsule with simple interrupted number oh 2 Ethibond. Piriformis was reapproximated through drill holes. At this point, I injected my periarticular mixture into the js-incisional soft tissues. We removed our Charnley retractor and closed fascia with running #2 Quill. Inverted interrupted 2-0 Vicryl in a multilayered fashion was used for subcu taneous tissue and running 4-0 Monocryl in a buried subcuticular fashion was used for skin. Prior to wound closure, all counts correct x2. No complications. At the conclusion, the patient was laid supine and transferred on the spine to the recovery cart negative PACU in stable and extubated condition. Postoperative plan is to admit her to the joint center for care and observation. She received DVT and antibiotic prophylaxis. NUNO GUSMAN II, MD Nov 03, 2019 09:41
[2019-11-03] MEDS: fentaNYL PF VIAL 100 MCG/2 ML VIAL IV PRN ×4 (09:47→10:40)
--- NOTE | 2019-11-03 10:46 | RAD ---
Study: CR PELVIS Indication: Postoperative evaluation. Comparison: 02/07/2019 Findings: Operative changes of recent total left hip arthroplasty. Expected soft tissue gas. No retained radiopaque foreign body within the soft tissues. The hardware is intact and appears normally positioned. No periprosthetic fracture. Right hip arthrosis that is moderate in severity with predominantly axial joint space narrowing. Impression: Status post left hip arthroplasty without immediate postoperative hardware complication. Electronically signed by: DARRIAN NICHOLAS MD (11/03/2019 10:44 AM) [id number]
[2019-11-03] MEDS: MORPHINE SULFATE 2 MG/ML VIAL. IV PRN ×2 (10:50→11:01)
[2019-11-03] MEDS: ONDANSETRON ODT 4 MG TAB.RAPDIS. PO SCH ×2 (12:00→18:00)
[2019-11-03] MEDS: ONDANSETRON PF 4 MG/2 ML VIAL. IVP SCH ×2 (12:00→17:55)
[2019-11-03] MEDS ORDERED: WARFARIN 7.5 MG TABLET. PO ONE (16:00)
[2019-11-03] MEDS: MULTIVITAMIN with MINERAL TABLET. PO SCH ×2 (16:48→17:11)
[2019-11-03] MEDS: POTASSIUM CHLORIDE 10 MEQ TABLET.ER. PO SCH ×2 (16:49→17:10)
[2019-11-03] MEDS: SENNOSIDES/DOCUSATE 8.6/50MG TABLET. PO SCH ×2 (16:51→17:11)
[2019-11-03] MEDS: ceFAZolin SODIUM IV Push 1 GM VIAL. IVP SCH ×2 (17:10→23:10)
[2019-11-03] MEDS: ALBUTEROL SULFATE 2.5 MG/3 ML NEBU. NEB SCH (18:00)
[2019-11-03] MEDS: ATORVASTATIN CALCIUM 10 MG TABLET. PO SCH ×2 (20:29→20:30)
[2019-11-04] MEDS: ONDANSETRON PF 4 MG/2 ML VIAL. IVP SCH ×2 (00:07→06:01)
[2019-11-04] MEDS: ONDANSETRON ODT 4 MG TAB.RAPDIS. PO SCH ×2 (00:07→06:00)
[2019-11-04] MEDS: oxyCODONE IR 5 MG TABLET PO PRN ×4 (00:08→17:19)
[2019-11-04 03:40] VITALS: BP 116/70
[2019-11-04] MEDS: ceFAZolin SODIUM IV Push 1 GM VIAL. IVP SCH (04:10)
[2019-11-04] MEDS: ALBUTEROL SULFATE 2.5 MG/3 ML NEBU. NEB SCH ×5 (06:00→20:34)
[2019-11-04] MEDS ORDERED: MAGNESIUM HYDROXIDE 2,400 MG/30 ML ORAL.SUSP. PO PRN (06:00)
[2019-11-04 07:00] VITALS: BP 113/61
[2019-11-04] MEDS: BUDESONIDE 0.5 MG/2 ML NEBU. NEB SCH ×3 (08:00→20:34)
[2019-11-04] MEDS: FERROUS SULFATE 325 MG TABLET. PO SCH ×3 (08:00→16:47)
[2019-11-04] MEDS: ACETAMINOPHEN 500 MG TABLET PO SCH ×3 (08:28→19:30)
[2019-11-04] MEDS: amLODIPine BESYLATE 10 MG TABLET PO SCH (08:29)
[2019-11-04] MEDS: POTASSIUM CHLORIDE 10 MEQ TABLET.ER. PO SCH ×2 (08:30→16:47)
--- NOTE | 2019-11-04 08:39 | PDOC ---
ORTHO PROGRESS NOTES DATE: 11/04/19 TIME: 08:38 Subjective She has some ache down her thigh, it is intermittent. Her pain is tolerable. She was up and walking yesterday Vitals Vital Signs Date Time Temp Pulse Resp B/P (MAP) Pulse Ox O2 Delivery O2 Flow Rate FiO2 11/04/19 08:29 80 116/70 11/04/19 08:05 95 Room Air 11/04/19 08:00 2.0 11/04/19 07:00 98.0 20 98.0 Labs Laboratory Tests Test 11/03/19 06:30 11/04/19 04:15 Prothrombin Time 12.3 SEC (11.7-14.0) 15.0 SEC (11.7-14.0) Prothromb Time International Ratio 1.0 (0.8-1.1) 1.2 (0.8-1.1) Activated Partial Thromboplast Time 35 SEC (24-38) Potassium Level 3.5 mmol/L (3.5-5.1) Laboratory Tests Test 11/04/19 04:15 Prothrombin Time 15.0 SEC (11.7-14.0) Prothromb Time International Ratio 1.2 (0.8-1.1) Notes She is awake and alert in bed. Normal motor and sensation are present left lower extremity. Expected amount of drainage is present at the incisional wound VAC. Assessment and Plan She will be transferred up to the joint center today. We will maintain her pain regimen. I would anticipate home with home health care. GABO GUSMAN II, MD Nov 04, 2019 08:39
[2019-11-04] MEDS: MULTIVITAMIN with MINERAL TABLET. PO SCH (08:47)
[2019-11-04] MEDS: SENNOSIDES/DOCUSATE 8.6/50MG TABLET. PO SCH (08:47)
--- NOTE | 2019-11-04 08:57 | NUR ---
Transferred by bed from [address] [place] [address]. Alert and oriented x's 4. Oriented to room and controls. Side rails up x's 2 with call light in reach. No c/o at this time. Discussed the POC for today and verbalized understanding.
--- NOTE | 2019-11-04 09:09 | NUR ---
Pharmacy Warfarin Dosing Note S:Pharmacy consulted to assist with anticoagulation therapy started 11/03/19 with target INR: 1.6 - 2.5 O:KAMLA BABCOCK is a 74 year old F s/p JUSTIN LABS: Last INR: 1.2 Last HGB: - Last HCT: - Last PLT: - Last dose of 7.5 mg given on 11/03/19 at 1729 Previous Regimen: NA Vitamin K given: N Drug Interaction Changes: None A:INR of 1.2 is below desired range. Target range for this patient is: 1.6 - 2.5 P: Warfarin dose: 5 mg Today at 1600 Bridge Therapy: None Next INR due 11/05/19 Pharmacy anticoagulation service will continue to follow. SYED SANABRIA, [facility], 11/04/19 0949
[2019-11-04 09:16] VITALS: BP 113/66
--- NOTE | 2019-11-04 10:14 | NUR ---
original surgical dressing removed; saturated with moderate amount to large amount serosanguineous drainage. incision without redness or bruising. cleansed with chlor prep than new TETO applied; tolerated fair
[2019-11-04 11:18] LABS: HEMATOCRIT 28.3 % (36.0-47.0); HEMOGLOBIN 9.5 g/dL (12.0-15.5)
[2019-11-04] MEDS ORDERED: ONDANSETRON ODT 4 MG TAB.RAPDIS. PO PRN (12:00)
[2019-11-04] MEDS ORDERED: ONDANSETRON PF 4 MG/2 ML VIAL. IVP PRN (12:00)
[2019-11-04] MEDS ORDERED: WARFARIN 5 MG TABLET. PO ONE (16:00)
[2019-11-04] MEDS ORDERED: BISACODYL 10 MG SUPP.RECT. PR PRN (16:00)
[2019-11-04 18:04] VITALS: BP 123/67
[2019-11-04] MEDS: ATORVASTATIN CALCIUM 10 MG TABLET. PO SCH (21:16)
[2019-11-05] MEDS: oxyCODONE IR 5 MG TABLET PO PRN ×3 (01:39→09:59)
[2019-11-05 05:45] LABS: PROTHROMBIN TIME PATIENT 22.9 SEC (11.7-14.0)
[2019-11-05 05:51] LABS: HEMATOCRIT 25.6 % (36.0-47.0); HEMOGLOBIN 8.4 g/dL (12.0-15.5)
[2019-11-05] MEDS: ACETAMINOPHEN 500 MG TABLET PO SCH ×3 (06:19→12:49)
[2019-11-05 06:35] VITALS: BP 118/63
--- NOTE | 2019-11-05 06:59 | NUR ---
"This is the worst day so far." c/o soreness in left hip. Reluctant to take narcotics due to nausea. Tylenol given po per request-albeit off schedule.
[2019-11-05] MEDS: BUDESONIDE 0.5 MG/2 ML NEBU. NEB SCH (07:24)
[2019-11-05] MEDS: ALBUTEROL SULFATE 2.5 MG/3 ML NEBU. NEB SCH ×3 (07:24→16:29)
[2019-11-05] MEDS: FERROUS SULFATE 325 MG TABLET. PO SCH ×2 (08:00→08:35)
--- NOTE | 2019-11-05 08:30 | NUR ---
"I feel better now". Rating pain at "3".
[2019-11-05] MEDS: MULTIVITAMIN with MINERAL TABLET. PO SCH (08:34)
[2019-11-05] MEDS: SENNOSIDES/DOCUSATE 8.6/50MG TABLET. PO SCH (08:34)
[2019-11-05] MEDS: POTASSIUM CHLORIDE 10 MEQ TABLET.ER. PO SCH (08:34)
[2019-11-05 08:35] VITALS: BP 114/68
--- NOTE | 2019-11-05 08:39 | PDOC ---
ORTHO PROGRESS NOTES DATE: 11/05/19 TIME: 08:28 Subjective Patient states that she had a difficult night last night but is feeling better this morning. Post-op Day: 2 Procedure Left total hip arthroplasty Vitals Vital Signs Date Time Temp Pulse Resp B/P (MAP) Pulse Ox O2 Delivery O2 Flow Rate FiO2 11/05/19 07:19 95 Room Air 11/05/19 06:35 98.9 86 20 118/63 (81) 98.9 11/04/19 08:00 2.0 Labs Laboratory Tests Test 11/04/19 04:15 11/05/19 04:10 Hemoglobin 9.5 g/dL (12.0-15.5) 8.4 g/dL (12.0-15.5) Hematocrit 28.3 % (36.0-47.0) 25.6 % (36.0-47.0) Mean Corpuscular Hemoglobin Concent 33 g/dL (31-37) 33 g/dL (31-37) Prothrombin Time 15.0 SEC (11.7-14.0) 22.9 SEC (11.7-14.0) Prothromb Time International Ratio 1.2 (0.8-1.1) 2.1 (0.8-1.1) Laboratory Tests Test 11/05/19 04:10 Hemoglobin 8.4 g/dL (12.0-15.5) Hematocrit 25.6 % (36.0-47.0) Mean Corpuscular Hemoglobin Concent 33 g/dL (31-37) Prothrombin Time 22.9 SEC (11.7-14.0) Prothromb Time International Ratio 2.1 (0.8-1.1) Notes Awake alert and oriented Assessment and Plan Postop day #2 status post left total hip arthroplasty Motor and sensation intact distally at the left lower extremity. Calf is soft and nontender. Dressing is dry and intact. Continue physical therapy. Discharge with home health today. JOSEP GALINDO APRN Nov 05, 2019 08:39
--- NOTE | 2019-11-05 08:41 | NUR ---
duplicate order for potassium
[2019-11-05] MEDS: amLODIPine BESYLATE 10 MG TABLET PO SCH (09:00)
--- NOTE | 2019-11-05 10:20 | NUR ---
Pharmacy Warfarin Dosing Note S:Pharmacy consulted to assist with anticoagulation therapy started 11/03/19 with target INR: 1.6 - 2.5 O:KAMLA BABCOCK is a 74 year old F with JUSTIN LABS: Last INR: 2.1 Last HGB: 8.4 Last HCT: - Last PLT: - Last dose of 5 mg given on 11/04/19 at 1646 Previous Regimen: Vitamin K given: N Drug Interaction Changes: Same Interacting Drug Ongoing Drug Interactions: A:INR of 2.1 is within desired range. Target range for this patient is: 1.6 - 2.5 P: Warfarin dose: 2 mg Today prior to discharge. Bridge Therapy: None Next INR due 11/10/19. Pharmacy anticoagulation service will continue to follow. ANAIS GARCIA RPH, 11/05/19 1022
[2019-11-05 11:26] VITALS: BP 112/67
[2019-11-05] MEDS ORDERED: WARFARIN 2 MG TABLET. PO ONE (13:00)
--- NOTE | 2019-11-05 14:17 | SNU/HH DC ---
DISCHARGE WITH HOME HEALTH DISCHARGE INFORMATION: Discharge Date: Nov 05, 2019 Final Diagnosis: left hip djd Condition on Discharge: Stable CODE STATUS: Code Status: Full HOME HEALTH: Face to Face: I certify this patient is under my care and that I, or a nurse practitioner or physician's payroll assistant working with me, had a face to face encounter that meets the physician face to face encounter requirements with this patient on []. Medical Complications: S/P Joint Replacement Usp For: Other: (blood draws) RN For Eval/Treatment: No Physical Therapy For: Evalulation/Treatment Occupational Therapy For: Evaluation/Treatment Pt Meets Homebound Status: Poor coordination w/ amb., Unsteady balance w/ amb, POST DISCHARGE ORDERS: Activity Instructions for Disc: Activity as tolerated Weight Bearing Status after Di: As tolerated Bathing Instructions: Shower-keep dressing dry DIET AFTER DISCHARGE: Regular Wound/Incision Care: Ice to area for comfort, Keep wound/cast CDI, Do not change dressing FOLLOW-UP: Follow up with: Fani in 2 wks Warfarin Follow UP: Pharmacy, coumadin for 4 wks, goal INR 1.6-2.3 TREATMENT/EQUIPMENT ORDERS: Adaptive Equipment Issued: None CERTIFICATION STATEMENT: Certification Statement: Certification Statement: Based on the above finding, I certify that this patient is confined to the home and needs intermittent alf care, physical therapy and/or speech therapy, or continues to need occupational therapy.~ This patient is under my care, and I have initiated the establishment of the plan of care.~ This patient will be followed by myself or a community physician who will periodically review the plan of care. Home Meds Reported Medications Docusate Sodium (COLACE) 100 Mg Capsule, 100 MG PO PRN BID PRN for CONSTIPATION, CAP 10/22/19 Ferrous Sulfate (FERROUS SULFATE) 325 Mg Tablet, 325 MG PO DAILY for TREAT ANEMIA, TAB 10/22/19 Acetaminophen (TYLENOL EXTRA STRENGTH) 500 Mg Tablet, 2 TAB PO PRN BID PRN for PAIN, TAB 09/04/19 Budesonide/Formoterol Fumarate (SYMBICORT 160-4.5 MCG INHALER) 10.2 Gm Hfa.ae r.ad, 2 PUFF INH BID for lungs 09/04/19 Potassium Chloride (KLOR-CON 10) 10 Meq Tablet.er, 1 TAB PO BID for replacement for 30 Days, #60 TAB 0 Refills 09/04/19 Pravastatin Sodium (PRAVASTATIN SODIUM) 10 Mg Tablet, 1 TAB PO DAILY for cholesterol, #30 TAB 5 Refills 09/04/19 Albuterol Sulfate (PROAIR HFA INHALER) 8.5 Gm Hfa.aer.ad, 2 PUFF INH PRN Q4HRS PRN for SHORTNESS OF BREATH, INHALER 0 Refills 01/21/17 Amlodipine Besylate (NORVASC) 10 Mg Tablet, 10 MG PO DAILY 02/06/13 GABO GUSMAN II, MD Nov 05, 2019 14:17
[2019-11-05 15:50] VITALS: BP 132/73
--- NOTE | 2019-11-05 16:45 | NUR ---
Discharge instructions given with prescriptions. Answered questions and concerns. Verbalized understanding. Pt discharged home with home health. Escorted out by w/c accompanied by staff and spouse.
--- NOTE | 2019-11-06 10:08 | PATHOLOGY ---
[facility] Accession Number: [id number] . 01 Material submitted: . hip - LEFT HIP BONE AND TISSUE. Modifiers: left . 01 Clinical history: . LEFT TOTAL HIP ARTHROLASTY . 02 Diagnosis: Femoral head, left total hip arthroplasty: - Advanced degenerative arthritis with focal subarticular fibrosis and bony sclerosis. ([facility] 11/05/2019) P 11/05/2019 1528 Local . 02 Electronically signed: . Eulogio Melendez MD, Pathologist NPI- [id number] . 01 Gross description: . The specimen is received in formalin, labeled "Fanta Post, left hip bone and tissue". Received is a femoral head with attached femoral neck measuring 4.6 x 4.6 x 5.8 cm in greatest dimensions. The articular surface is light villar and smooth to irregular in contour with eburnation identified, as well as osteophytic lipping. Sectioning reveals yellow-villar cut surfaces throughout with no grossly distinct nodules or lesions. The specimen is submitted representatively in cassette A1, following decalcification. (CAA; 11/04/2019) QAC/QAC 11/04/2019 1026 Local . 02 Pathologist provided ICD-10: M16.12 . 02 CPT . 565014, [id number] Specimen Comment: A courtesy copy of this report has been sent to [phone] Specimen Comment: Report sent to Performed at: 01 [facility] [address] [facility] [address], [place] [id number] MD Arnoldo Miranda MD Phone: [phone] Performed at: 02 [facility] [address] [place], [place] [id number] MD Eulogio Melendez MD Phone: [phone]
== END 2019-11-05 16:45 | disposition home health service (06) ==
LOC: SURG 05:58 → EDSTATUS 07:30 → 2 NORTH 07:36 → 4 SOUTHEST 11-04 08:59
PROVIDERS: ADMIT Orthopaedic Surgery Sports Medicine; ATTEND Orthopaedic Surgery Sports Medicine
DX: M16.12 Unilateral primary osteoarthritis, left hip (principal)
CPT/HCPCS: 27130; 36415; 72170; 84132; 85014; 85018; 85610; 85730; 86850; 86900; 86901; 88304; 88311; 94640; 94760; 96374; 96376; 97110; 97116; 97150; 97162; 97165; 97530; 97535; A7015; C1713; G0378; G0379; J0171; J0690; J1100; J1885; J2270; J2370; J2405; J2704; J2710; J2795; J3010; J3490; J7030; J7120; J7613; J7626

== ENCOUNTER 2020-01-17 01:27 | Emergency (ER) | payer MEDICARE ==
[~2020-01-17] VITALS: Ht 165.1 cm; Wt 59.1 kg
[2020-01-17] MEDS ORDERED: NYST100054 PO (01:59)
--- NOTE | 2020-01-17 01:59 | PHYS DOC ---
Past Medical History Past Medical History: COPD, Hypertension, Other Additional Past Medical Histor: Brain aneurysm Past Surgical History: Other Additional Past Surgical Histo: intestinal polyp,Brain aneurysm Smoking Status: Current Every Day Smoker Alcohol Use: None Drug Use: None General Adult EDM: Chief Complaint: SORE THROAT HPI: HPI: Patient is a 74 year old [f__sex] who presents with [] Review of Systems: Review of Systems: Constitutional: Denies fever or chills. [] Eyes: Denies change in visual acuity. [] HENT: Denies nasal congestion or sore throat. [] Respiratory: Denies cough or shortness of breath. [] Cardiovascular: Denies chest pain or edema. [] GI: Denies abdominal pain, nausea, vomiting, bloody stools or diarrhea. [] : Denies dysuria. [] Musculoskeletal: Denies back pain or joint pain. [] Integument: Denies rash. [] Neurologic: Denies headache, focal weakness or sensory changes. [] Endocrine: Denies polyuria or polydipsia. [] Lymphatic: Denies swollen glands. [] Psychiatric: Denies depression or anxiety. [] Heart Score: Risk Factors: Risk Factors: DM, Current or recent (<one month) smoker, HTN, HLP, family history of CAD, obesity. Risk Scores: Score 0 - 3: 2.5% MACE over next 6 weeks - Discharge Home Score 4 - 6: 20.3% MACE over next 6 weeks - Admit for Clinical Observation Score 7 - 10: 72.7% MACE over next 6 weeks - Early Invasive Strategies Allergies: Allergies: Allergies Coded Allergies Type Severity Reaction Last Updated Verified YVONNE Inhibitors Allergy Severe angioedema "my tongue swells" 11/03/19 Yes tramadol Adverse Reaction Severe Nausea/vomiting 11/03/19 Yes doxycycline Adverse Reaction Intermediate n/v 11/03/19 Yes sulfamethoxazole Adverse Reaction Intermediate n/v 11/03/19 Yes trimethoprim Adverse Reaction Intermediate n/v 11/03/19 Yes Physical Exam: PE: Constitutional: Well developed, well nourished, no acute distress, non-toxic appearance. [] HENT: Normocephalic, atraumatic, bilateral external ears normal, oropharynx moist, no oral exudates, nose normal. [] Eyes: PERRLA, EOMI, conjunctiva normal, no discharge. [] Neck: Normal range of motion, no tenderness, supple, no stridor. [] Cardiovascular:Heart rate regular rhythm, no murmur [] Lungs & Thorax: Bilateral breath sounds clear to auscultation [] Abdomen: Bowel sounds normal, soft, no tenderness, no masses, no pulsatile masses. [] Skin: Warm, dry, no erythema, no rash. [] Back: No tenderness, no CVA tenderness. [] Extremities: No tenderness, no cyanosis, no clubbing, ROM intact, no edema. [] Neurologic: Alert and oriented X 3, normal motor function, normal sensory function, no focal deficits noted. [] Psychologic: Affect normal, judgement normal, mood normal. [] EKG: EKG: [] Radiology/Procedures: Radiology/Procedures: [] Course & Med Decision Making: Course & Med Decision Making Pertinent Labs and Imaging studies reviewed. (See chart for details) [] Dragon Disclaimer: 1spire Disclaimer: This electronic medical record was generated, in whole or in part, using a voice recognition dictation system. Departure Departure Impression: Primary Impression: Pharyngitis Qualified Codes: J02.9 - Acute pharyngitis, unspecified Additional Impression: Suspected 2019 novel coronavirus infection Disposition: 01 DC HOME SELF CARE/HOMELESS Condition: STABLE Referrals: LORI ESTRADA MD (PCP) Patient Instructions: Thrush, Adult, Jims-[id number], Viral and Bacterial Pharyngitis, [id number] Additional Instructions: You have been tested for or diagnosed with COVID-19. It is an infection caused by a new type of coronavirus. COVID-19 will cause cold-like or mild flu symptoms in most. It can cause more severe symptoms like problems breathing in some. There is no treatment for COVID-19. The body will clear the infection over time. Self-care will help to ease discomfort. Steps to Take: Self-Care Rest as needed. Healthy habits may help you feel better. Steps include: Choose healthy foods including fruits and vegetables. Drink water throughout the day. Get plenty of sleep each night. If you smoke, try to quit. It may ease breathing. Avoid alcohol. Keep Others Healthy The virus can spread to others. Droplets are released every time you sneeze or cough. The droplets can get into the mouth, nose, or eyes of people near you and lead to infection. To lower the chances of spreading COVID-19 to others: Stay at home until your doctor has said it is safe to leave. If you tested positive this will mean staying isolated until both of the following are true: At least 7 days have passed since the start of illness. You are free of fever for at least 72 hours without the use of medicine. During this time: - Avoid public areas, events, or transportation. Do not return to work or school until your doctor has said it is safe to do so. - Call ahead if you need to go to a medical center. Let them know you may have COVID-19. It will help them guide you where to go. They may also ask you to wear a facemask when you come to the office. - If you call for emergency medical services, let them know you may have COVID- 19. While at home: - Try to avoid close contact with others. Stay about 6 feet away. - If possible, spend most of your time in a separate room from others. - Use a face mask if you will be in close contact with others such as sharing a room or vehicle. - Have someone wipe down common surfaces in the home. Use household petroleum transport driver every day on areas like doorknobs, counters, or sinks. - Cough or sneeze into a tissue. Throw the tissue away right after use. If a tissue is not available, cough or sneeze into your elbow. - Wash your hands often. Wash them after sneezing or coughing. Use soap and water and wash for at least 20 seconds. Alcohol based hand cleaner assistant can be used if soap and water is not available. - Do not prepare food for others. Avoid sharing personal items like forks, spoons, or toothbrushes. - Avoid close contact with pets while you are sick. There is no evidence of the virus passing to pets. This is a safety step until more is known about this virus. Isolation can be frustrating. Social interaction can help. Keep in touch with friends and family through phone and tech options. You can still interact with others in your home, just keep a safe distance of about 6 feet. Follow-up: Your doctors office will check in with you to see if there are any changes in your health. You may be asked to keep track of symptoms to share with them. They will also let you know when you are clear to be in public again. Problems to Look Out For: Contact your doctor if your recovery is not going as you expect. Get emergency care if you have problems such as: - Trouble breathing - Nonstop chest pain or pressure - Changes in awareness, confusion, or problems waking - Lips or face have bluish color - Worsening of symptoms If you think you have an emergency, call for emergency medical services right away. As taken from [facility] Script[facility] Nystatin (NYSTATIN) 100,000 Unit/1 Ml Oral.susp 5 ML PO QID for 7 Days, #150 ML Swish and swallow Prov: CORY JUDD DO 01/17/20 CORY JUDD DO Jan 17, 2020 01:59
[2020-01-17] MEDS ORDERED: DEXAMETHASONE 4 MG TABLET PO ONE (02:00)
[2020-01-17 02:06] VITALS: BP 139/89
--- NOTE | 2020-01-19 09:38 | NUR ---
IP: Informed pt of negative COVID test. Pt verbalized understanding.
== END 2020-01-17 02:12 | disposition home or self-care (01) ==
LOC: ER 01:27
DX: J02.9 Acute pharyngitis, unspecified (principal); Z20.828 Contact with and (suspected) exposure to other viral communicable diseases; J44.9 Chronic obstructive pulmonary disease, unspecified; I10 Essential (primary) hypertension; F17.200 Nicotine dependence, unspecified, uncomplicated; Z98.890 Other specified postprocedural states; Z88.2 Allergy status to sulfonamides; Z88.1 Allergy status to other antibiotic agents; Z88.6 Allergy status to analgesic agent; Z88.8 Allergy status to other drugs, medicaments and biological substances
CPT/HCPCS: 87070; 87880; 99283; C9803; U0003

== ENCOUNTER 2020-05-14 09:16 | Emergency (ER) | payer MEDICARE ==
[~2020-05-14] VITALS: Ht 167.6 cm; Wt 57.2 kg
[~2020-05-14 09:16] MED LIST changes: +NYST100054 PO
[2020-05-14] MEDS ORDERED: IV NORMAL SALINE 1000ML BAG 1,000 ML IV ONE (09:30)
[2020-05-14 09:36] LABS: BASO % 1 % (0-3); EOS # 0.1 x10^3/uL (0.0-0.7); EOS % 2 % (0-3); HEMATOCRIT 42.1 % (36.0-47.0); HEMOGLOBIN 14.2 g/dL (12.0-15.5); LYMPH # 1.7 x10^3/uL (1.0-4.8); LYMPH % 33 % (24-48); MEAN CORPUSCULAR HEMOGLOBIN 32 pg (25-35); MEAN CORPUSCULAR HGB CONC 34 g/dL (31-37); MEAN CORPUSCULAR VOLUME 95 fL (79-100); MONO # 0.5 x10^3/uL (0.0-1.1); MONO % 10 % (0-9); NEUT # 2.9 x10^3/uL (1.8-7.7); NEUT % 55 % (31-73); PLATELET COUNT 270 x10^3/uL (140-400); RED BLOOD COUNT 4.42 x10^6/uL (3.50-5.40); RED CELL DISTRIBUTION WIDTH 15.7 % (11.5-14.5); WHITE BLOOD COUNT 5.3 x10^3/uL (4.0-11.0)
[2020-05-14] MEDS ORDERED: ORPHENADRINE CITRATE 60 MG/2 ML VIAL. IV ONE (10:00)
[2020-05-14] MEDS ORDERED: ASPIRIN 325 MG TABLET PO ONE (10:00)
--- NOTE | 2020-05-14 10:10 | RAD ---
XR SHOULDER_RIGHT 2+ VIEWS History: Reason: right shoulder pain x3 days / Spl. Instructions: / History: Technique: 3 views right shoulder. Comparison: None. Findings: Normal alignment of the right glenohumeral and acromioclavicular joints. No fracture. Mild right katarzyna ohumeral DJD. Impression: 1. No acute osseous abnormality. Electronically signed by: Diogenes Turcios DO (05/14/2020 10:08 AM) [id number]
[2020-05-14 10:17] LABS: CALCIUM 8.5 mg/dL (8.5-10.1); CREATININE 0.8 mg/dL (0.6-1.0); GFR 84.8; POTASSIUM 3.1 mmol/L (3.5-5.1)
[2020-05-14 10:19] LABS: PROTHROMBIN TIME PATIENT 12.8 SEC (11.7-14.0)
--- NOTE | 2020-05-14 10:19 | PHYS DOC ---
Past Medical History Past Medical History: COPD, Hypertension Additional Past Medical Histor: Brain aneurysm Past Surgical History: Hip Replacement, Tonsillectomy, Other Additional Past Surgical Histo: intestinal polyp, Brain aneurysm, Right total hip arthroplasty Smoking Status: Current Every Day Smoker Additional Information: / ppd Alcohol Use: None Drug Use: None General Adult EDM: Chief Complaint: SHOULDER HPI: HPI: Patient is a 74 year old female who presents with Right shoulder pain of 3 days duration. Pain radiates into neck and back on right side. Started upon awaking after a nap on the couch. Severity 10/10 since initial onset. Has tried tylenol and ibuprofen both of which have not helped the pain. Pain is worse with movement and characterized as stabbing in nature. Patient has had intermittent nausea as well but has not vomited. Patient does not recall any injury. Associated LLQ abdominal pain that also radiates into her back. Review of Systems: Review of Systems: Constitutional: Denies fever or chills Eyes: Denies redness or eye pain HENT: Denies nasal congestion or sore throat Respiratory: Denies cough or shortness of breath Cardiovascular: Denies chest pain or palpitations GI: Has nausea but not vomiting. Has LUQ pain that radiates to her back. Denies changes in stool consistency or frequency. : Denies dysuria or hematuria Musculoskeletal: Denies back pain or joint pain Integument: Denies rash or skin lesions Neurologic: Denies headache, focal weakness or sensory changes Complete systems were reviewed and found to be within normal limits, except as documented in this note. Heart Score: C/O Chest Pain: No (Denies) HEART Score for Chest Pain: HEART Score for Chest Pain Response (Comments) Value History Moderately Suspicious 1 ECG Normal 0 Age > 65 2 Risk Factors 1 or 2 Risk Factors 1 Troponin < Normal Limit 0 Total 4 Risk Factors: Risk Factors: DM, Current or recent (<one month) smoker, HTN, HLP, family history of CAD, obesity. Risk Scores: Score 0 - 3: 2.5% MACE over next 6 weeks - Discharge Home Score 4 - 6: 20.3% MACE over next 6 weeks - Admit for Clinical Observation Score 7 - 10: 72.7% MACE over next 6 weeks - Early Invasive Strategies Family History: Family History: Family history of Pancreatic Cancer in sister. Current Medications: Current Medications Medications (Trade) Dose Ordered Sig/Ana Start Time Stop Time Status Last Admin Dose Admin Aspirin (Brown Aspirin) 325 mg 1X ONCE 05/14/20 10:00 05/14/20 10:01 Orphenadrine Citrate (Norflex) 60 mg 1X ONCE 05/14/20 10:00 05/14/20 10:01 Sodium Chloride 1,000 ml @ 1,000 mls/hr 1X ONCE 05/14/20 09:30 05/14/20 10:29 05/14/20 09:33 1,000 MLS/HR Allergies: Allergies: Allergies Coded Allergies Type Severity Reaction Last Updated Verified YVONNE Inhibitors Allergy Severe angioedema "my tongue swells" 05/14/20 Yes tramadol Adverse Reaction Severe Nausea/vomiting 05/14/20 Yes doxycycline Adverse Reaction Intermediate n/v 05/14/20 Yes sulfamethoxazole Adverse Reaction Intermediate n/v 05/14/20 Yes trimethoprim Adverse Reaction Intermediate n/v 05/14/20 Yes Physical Exam: PE: Constitutional: Well developed, well nourished, mildly distressed, non-toxic appearance HENT: Normocephalic, atraumatic Eyes: PERRL, EOMI, conjunctiva normal, no discharge Neck: ROM intact. Tenderness to palpation along Right paraspinal muscles, pain with passive and active ROM. Lungs & Thorax: No respiratory distress, equal chest rise and fall Abdomen: Soft, no tenderness on exam. negative gutierrez sign. negative pain at mcburney's point. No echymosis. Bowel sounds normal. Skin: Warm, dry, no erythema, no rash Back: No tenderness, no CVA tenderness Shoulder: Right tender to palpation across trapezius and SCM. Pain with passive and active ROM on Right. ROM intact b/l. Muscle strength 5/5 b/l. Right trapezius ropy and hypertonic. Neurologic: Alert and oriented X 3, normal motor function, normal sensory function, no focal deficits noted Psychologic: Affect normal, judgment normal Current Patient Data: Labs: Laboratory Tests Test 05/14/20 09:25 White Blood Count 5.3 x10^3/uL (4.0-11.0) Red Blood Count 4.42 x10^6/uL (3.50-5.40) Hemoglobin 14.2 g/dL (12.0-15.5) Hematocrit 42.1 % (36.0-47.0) Mean Corpuscular Volume 95 fL (79-100) Mean Corpuscular Hemoglobin 32 pg (25-35) Mean Corpuscular Hemoglobin Concent 34 g/dL (31-37) Red Cell Distribution Width 15.7 % (11.5-14.5) H Platelet Count 270 x10^3/uL (140-400) Neutrophils (%) (Auto) 55 % (31-73) Lymphocytes (%) (Auto) 33 % (24-48) Monocytes (%) (Auto) 10 % (0-9) H Eosinophils (%) (Auto) 2 % (0-3) Basophils (%) (Auto) 1 % (0-3) Neutrophils # (Auto) 2.9 x10^3/uL (1.8-7.7) Lymphocytes # (Auto) 1.7 x10^3/uL (1.0-4.8) Monocytes # (Auto) 0.5 x10^3/uL (0.0-1.1) Eosinophils # (Auto) 0.1 x10^3/uL (0.0-0.7) Basophils # (Auto) 0.0 x10^3/uL (0.0-0.2) Laboratory Tests 05/14/20 09:25 Vital Signs: Vital Signs Date Time Temp Pulse Resp B/P (MAP) Pulse Ox O2 Delivery O2 Flow Rate FiO2 05/14/20 09:20 98.1 73 20 167/89 (115) 97 Room Air 98.1 EKG: EK read by Samm Judd D.O. Sinus rhythm. Rate 66 bpm. Normal axis. QRS 74 ms. QTC 436 ms. NO STEMI. Radiology/Procedures: Radiology/Procedures: PROCEDURE: SHOULDER 2+V RIGHT XR SHOULDER_RIGHT 2+ VIEWS History: Reason: right shoulder pain x3 days / Spl. Instructions: / History: Technique: 3 views right shoulder. Comparison: None. Findings: Normal alignment of the right glenohumeral and acromioclavicular joints. No fracture. Mild right glenohumeral DJD. Impression: 1. No acute osseous abnormality. Electronically signed by: Diogenes Turcios DO (05/14/2020 10:08 AM) [id number] Course & Med Decision Making: Course & Med Decision Making Patient is a 74 year old female who presents with Right shoulder pain of 3 days duration. Pain radiates into neck and back on right side. Started upon awaking after a nap on the couch. Patient was extremely tender to palpation on right trapezius, right scm, and right thoracic paraspinal muscles. Patient has had intermittent nausea as well but has not vomited. Associated LLQ abdominal pain that also radiates into her back. Pain was addressed with muscle relaxers primarily. Nausea was addressed with zofran. Concern for atypical chest pain presentation of myocardial event prompted full cardiac workup which was negative. EKG showed NO STEMI or evidence of acute cardiac event. HEART score was calclated (see above) to assess risk for NSTEMI. Abdominal exam was negative. Shoulder XR was ordered and ruled out fracture as a potential cause of shoulder pain. Pertinent Labs and Imaging studies reviewed. (See chart for details). Secondary causes of shoulder pain were excluded, leaving most likely diagnosis as musculoskeletal in nature. OMM treatment was performed (see procedure notes for details). Patient stable for discharge with outpatient follow-up with Orthopedic Surgeon. Discussed findings and plan with patient, who acknowledges understanding and agreement. [] Dragon Disclaimer: Dragon Disclaimer: This electronic medical record was generated, in whole or in part, using a voice recognition dictation system. Additional Procedures Progress OMM Treatment performed bedside. Verbal consent obtained. Hand hygiene utilized. Soft tissue treatment performed to right trapezius and sternocleidomastoid. Patient tolerated procedure well and without difficulty. Patient noted some pain relief. Departure Departure Impression: Primary Impression: Shoulder pain, right Qualified Codes: M25.511 - Pain in right shoulder Additional Impressions: Hypokalemia Nausea Disposition: 01 DC HOME SELF CARE/HOMELESS Condition: STABLE Referrals: LORI ESTRADA MD (PCP) TERESO VALDOVINOS MD Patient Instructions: Hypokalemia, Nausea, Adult, [id number]-[id number], Potassium Content of Foods, Shoulder Pain, Oymj-ds-Bymd, Sling Use After Injury or Surgery, [id number] Additional Instructions: ICE area of discomfort 20 min on then leave off next 20 mins. Repeat several times daily as needed for next few days. May also trial head instead of ICE. May also take over the counter Tylenol as needed for pain. Make sure to take shoulder/arm out of sling at least 5 times daily and perform "shoulder circles" 10x in each direction as educated in the Emergency Department to prevent a "Frozen shoulder". Scripts Orphenadrine Citrate (ORPHENADRINE CITRATE) 100 Mg Tablet.er 100 MG PO BID PRN for MUSCLE PAIN, #14 TAB Prov: SAMM JUDD DO 05/14/20 Naproxen (NAPROXEN) 375 Mg Tablet 375 MG PO BID PRN for PAIN, #14 TAB Prov: SAMM JUDD DO 05/14/20 Ondansetron (ONDANSETRON ODT) 4 Mg Tab.rapdis 1 TAB PO PRN Q6-8HRS PRN for NAUSEA, #16 TAB Prov: SAMM JUDD DO 05/14/20 SAMM JUDD DO May 14, 2020 10:19
[2020-05-14 10:23] LABS: ALBUMIN 3.5 g/dL (3.4-5.0); MAGNESIUM 2.1 mg/dL (1.8-2.4); TOTAL BILIRUBIN 0.4 mg/dL (0.2-1.0)
[2020-05-14 10:31] LABS: BILIRUBIN,URINE NEGATIVE (NEG); CLARITY,URINE CLEAR; COLOR,URINE YELLOW; NITRITE,URINE NEGATIVE (NEG); PH,URINE 6.5 (<5.0-8.0); PROTEIN,URINE NEGATIVE (NEG-TRACE); UROBILINOGEN,URINE 0.2 mg/dL (0.2 mg/dL)
[2020-05-14] MEDS ORDERED: ORPH100T PO ×2 (10:37→10:53)
[2020-05-14] MEDS ORDERED: ONDA4TAB12 PO (10:37)
[2020-05-14 10:41] LABS: AMORPHOUS SEDIMENT,UR PRESENT /HPF; BACTERIA,URINE 0 /HPF (0-FEW); RBC,URINE 0 /HPF (0-2); WBC,URINE OCC /HPF (0-4)
--- NOTE | 2020-05-14 10:41 | EKG ---
[facility] [address] [place] [address] Test Date: 2020-05-14 Test Time: 09:19:29 Pat Name: KAMLA BABCOCK Department: Room: Gender: F Supervisor Solder Making: : 1945 Requested By: CORY JUDD Order Number: [id number] Reading MD: Measurements Intervals [place] Rate: 66 P: 68 ID: [id number] QRS: 25 QRSD: 74 T: 53 QT: 414 QTc: 436 Interpretive Statements SINUS RHYTHM ATRIAL PREMATURE COMPLEX(ES) LEFT ATRIAL ABNORMALITY ABNORMAL ECG RI6.02 No previous ECG available for comparison
[2020-05-14] MEDS ORDERED: POTASSIUM CHLORIDE 10 MEQ TABLET.ER. PO ONE (10:45)
[2020-05-14] MEDS ORDERED: NAPR-695 PO (10:50)
[2020-05-14 10:53] VITALS: BP 195/89
[2020-05-14] MEDS ORDERED: ONDANSETRON PF 4 MG/2 ML VIAL. IVP ONE (11:00)
[2020-05-14] MEDS ORDERED: KETOROLAC 15 MG/ML VIAL. IVP ONE (11:15)
== END 2020-05-14 11:22 | disposition home or self-care (01) ==
LOC: ER 09:16
DX: M25.511 Pain in right shoulder (principal); E87.6 Hypokalemia; R11.0 Nausea; J44.9 Chronic obstructive pulmonary disease, unspecified; I10 Essential (primary) hypertension; F17.200 Nicotine dependence, unspecified, uncomplicated; Z88.2 Allergy status to sulfonamides; Z88.6 Allergy status to analgesic agent; Z88.1 Allergy status to other antibiotic agents; Z88.8 Allergy status to other drugs, medicaments and biological substances
CPT/HCPCS: 36415; 73030; 80053; 81001; 83690; 83735; 83880; 84484; 85025; 85384; 85610; 85730; 93005; 96361; 96374; 96375; 99285; A4565; J1885; J2360; J2405; J7030

== ENCOUNTER → 2020-06-03 | Outpatient (CLI) | payer MEDICARE ==
[2020-05-14 10:53] VITALS: BP 195/89
[~2020-06-03] MED LIST changes: +NAPR-695 PO; +ONDA4TAB12 PO; +ORPH100T PO
--- NOTE | 2020-06-03 13:31 | RAD ---
CT of the chest without cancer, low dose lung cancer screening protocol 06/03/2020 INDICATION: Upper back pain. Lung cancer screening. Patient reports a 15 year smoking history. COMPARISON STUDY: CT of the chest with contrast January 27, 2019 TECHNIQUE: Multidetector CT imaging of the chest was performed without contrast using a low-dose, brennan g cancer screening protocol. FINDINGS: Heart size is normal. No pericardial effusion is identified. Coronary and aortic calcification noted. Limited noncontrast enhanced evaluation of the mediastinum demonstrates no gross evidence of patholo gically enlarged mediastinal adenopathy. Limited evaluation of the upper abdomen demonstrates no acut e abnormality. Centrilobular emphysematous changes are seen throughout the lungs. Mild areas of subpleural scarring are seen in the lung apices. There is a small calcified granuloma in the apical left lower lobe. This measures 2 to 3 mm. There is a 2 mm noncalcified nodule in the right upper lobe (axial image 64). Th ere is a 4 mm noncalcified nodule inferior to this in the right upper lobe (axial image 94). There is a 1 to 2 mm nodule inferior to this the right upper lobe (axial image 102). No pneumothorax, effusion, or acute appearing infiltrates are identified. No evidence of acute osseou s abnormality is identified. Diffuse bone demineralization appears to be present. IMPRESSION: 1. Scattered subcentimeter pulmonary nodules, described above in detail, largest measuring 4 mm in th e right upper lobe. Lung RADS category 3, probably benign, with a 1-2% risk of malignancy. 6 month fo llow-up low-dose CT chest recommended for surveillance. 2. Centrilobular emphysema 3. Diffuse bone demineralization CT DOSING PQRS STATEMENT: One or more of the following individualized dose reduction techniques were utilized for this examinat ion: 1. Automated exposure control 2. Adjustment of the mA and/or kV according to patient size 3. Use of iterative reconstruction technique Electronically signed by: Mat Tyler MD (06/03/2020 1:29 PM) [id number]
== END ==
LOC: CT 10:48
PROVIDERS: ATTEND Family Medicine
DX: J43.2 Centrilobular emphysema (principal); R91.1 Solitary pulmonary nodule; F17.210 Nicotine dependence, cigarettes, uncomplicated
CPT/HCPCS: 71271

== ENCOUNTER → 2021-03-22 | Outpatient (CLI) | payer MEDICARE ==
--- NOTE | 2021-03-22 16:28 | RAD ---
EXAM: CT CHEST WITHOUT CONTRAST (LDCT LUNG CANCER SCREENING). HISTORY: Risk factors for pulmonary malignancy. . TECHNIQUE: CT of the chest was performed without intravenous contrast using a low-dose lung screening protocol. Findings analysis is based on ACR Lung-RADS v1.1. *One or more of the following individual ized dose reduction techniques were utilized for this examination: 1. Automated exposure control. 2. Adjustment of the mA and/or kV according to patient size. 3. Use of iterative reconstruction technique. COMPARISON: June 04, 2011. FINDINGS: Nodules: There are a few small noncalcified pulmonary nodules all which are less than 5 mm in diamete r. Other findings: Images of the upper abdomen reveal no acute abnormality. Bone windows reveal no suspi cious lesions. There are no pathologically enlarged mediastinal or axillary lymph nodes. There is no pleural or js cardial effusion. The heart is not enlarged. There is diffuse emphysematous changes. IMPRESSION/RECOMMENDATION: 1. ACR Lung-RADS category: 3: Probably benign. 2. Continue annual screening with LDCT in 12 months. Electronically signed by: Joao Reyna III, MD (03/22/2021 4:25 PM) KERN VALLEYRODOLFO
== END ==
LOC: CT 11:03
PROVIDERS: ATTEND Family Medicine
DX: R91.8 Other nonspecific abnormal finding of lung field (principal); J43.9 Emphysema, unspecified; Z72.0 Tobacco use
CPT/HCPCS: 71271